=== PATIENT | female | born 1940 | race Caucasian/White ===

== ENCOUNTER → 2020-07-02 17:23 | Outpatient (CLI) | payer MEDICARE, SELFPAY | PROVIDERS: PCP Family Medicine; Referring Provider Family Medicine; Visit Provider Family Medicine | DX: J06.9 Acute upper respiratory infection, unspecified (principal) | CPT/HCPCS: 87635; C9803; U0003 ==

== ENCOUNTER 2021-03-25 08:20 | Emergency (ER) | payer MEDICARE, SELFPAY ==
[2021-03-25] VITALS (12 sets, daily range): BP systolic 59–169; BP diastolic 45–87; PULSE 55–89; RESP 18–20; TEMP 36.5–36.6; O2SAT 98–100; BMI 23.6
--- NOTE | 2021-03-25 08:22 | NURSING ---
NO OLD EKGS
--- NOTE | 2021-03-25 08:45 | EKG12_ITS ---
Test Reason : REPEAT Blood Pressure : / mmHG Vent. Rate : 072 BPM Atrial Rate : 072 BPM P-R Int : 166 ms QRS Dur : 076 ms QT Int : 382 ms P-R-T Axes : 047 031 058 degrees QTc Int : 418 ms Normal sinus rhythm Normal ECG Confirmed by KAYLIE PERRY MD ([id number]), editor at large GONZALEZ DEL CID ([id number]) on 03/26/2021 12:44:28 PM Referred By: KASSIE Confirmed By:KAYLIE PERRY MD
--- NOTE | 2021-03-25 08:46 | EDS_ITS ---
HPI History of Present Illness Chief Complaint: Chest Pain Informant: patient Onset/Context/Timing Onset: Yesterday (Before bed) Activity at onset: rest Quality: Positive for Aching Location: Left Chest (Lower chest, just to the left of midline. No radiation anywhere including back, jaw, arm, neck) Current Severity: Moderate Maximum Severity: Moderate Worsened By: Breathing (A little) Relieved By: Nothing; Not Relieved By Antacids Associated Symptoms: Negative for Nausea, Vomiting, Diaphoresis, Dyspnea, Cough, Fever, Lightheadedness and Palpitations Narrative Narrative: Patient states she has had this chest discomfort constantly overnight over 8 hours, no worse with position changes or exertion a little worse with deep breathing. She has had a lot of gas she states. She states during the day normally, she takes Tums every 2-3 hours. She did that overnight it did not help this. She has had this discomfort multiple times in the past, usually associated with reflux she thinks, she had an EGD that showed evidence of reflux and gastritis but she states she does not get the classic burning. She states this time is different because the discomfort which is in similar location and of similar sensation, is stronger in severity and has been persistent overnight which is unusual. She took Tums but it did not help this time although she hence that it did improve a little transiently with her doses. Prior Similar Symptoms: Yes PE Risk Factors: Negative for Recent Travel/Surgery, Recent Immobilization, Prior DVT or PE, Cancer and OCP + Smoking + >/=35 PFSH PFSH Medical History Adult hypothyroidism GERD (gastroesophageal reflux disease) Hypertension Home Medications levothyroxine [Synthroid] 100 mcg PO DAILY 03/25/21 [History Last Taken Unknown] lisinopril 10 mg PO DAILY 03/25/21 [History Last Taken Unknown] omeprazole 20 mg PO DAILY 03/25/21 [History Last Taken Unknown] Allergy/AdvReac Type Severity Reaction Status Date / Time nitroglycerin AdvReac Other Verified 03/25/21 09:54 Social History Smoking Status: Never smoker ROS ROS ED Constitutional Constitutional ED: Denies chills or fever(s) Eyes Eyes: Denies change in vision or diplopia ENT ENT ED: Denies rhinorrhea or sore throat Cardiovascular Cardiovascular: Reports chest pain; Denies edema or palpitations Respiratory/Chest Respiratory/Chest: Denies cough or dyspnea Gastrointestinal Gastrointestinal: Denies abdominal pain, diarrhea, nausea or vomiting Genitourinary Genitourinary ED: Denies dysuria or hematuria Musculoskeletal Musculoskeletal: Denies back pain, extremity pain or neck pain Integumentary Denies abscess or rash Neurologic Neurologic: Denies headache(s), paresthesias or weakness Psychiatric Psychiatric: Denies anxiety or suicidal thoughts EXAM Physical Exam Const Vital Signs: 03/25/21 08:21 03/25/21 08:24 03/25/21 08:25 Temperature 97.7 F L 97.7 F L Temperature Source Temporal Temporal Pulse Rate 89 89 Respiratory Rate 18 18 Respiratory Effort Normal Blood Pressure 169/87 H 169/87 H Blood Pressure Mean 114 114 Pulse Ox 100 100 Oxygen Delivery Method Room Air Room Air 03/25/21 09:19 03/25/21 09:21 03/25/21 09:37 Temperature 97.8 F Temperature Source Temporal Pulse Rate 76 76 71 Respiratory Rate 20 H 20 H Respiratory Effort Blood Pressure 143/74 H 143/74 H 126/64 H Blood Pressure Mean 97 97 Pulse Ox 98 98 Oxygen Delivery Method Room Air Room Air 03/25/21 09:40 03/25/21 09:45 03/25/21 09:46 Temperature Temperature Source Pulse Rate 76 89 55 L Respiratory Rate Respiratory Effort Blood Pressure 131/74 H 59/45 L 77/50 L Blood Pressure Mean 93 49 59 Pulse Ox Oxygen Delivery Method 03/25/21 09:52 03/25/21 09:55 03/25/21 10:30 Temperature Temperature Source Pulse Rate 70 73 66 Respiratory Rate 18 Respiratory Effort Blood Pressure 120/70 123/74 H 134/67 H Blood Pressure Mean 86 90 89 Pulse Ox 100 Oxygen Delivery Method 03/25/21 11:15 Temperature Temperature Source Pulse Rate 70 Respiratory Rate 18 Respiratory Effort Blood Pressure 130/69 H Blood Pressure Mean 89 Pulse Ox 99 Oxygen Delivery Method Positive well nourished and well developed General Appearance ED: well developed and NAD HEENT Reports moist mucous membranes normocephalic and atraumatic Eyes PERRL and EOMs intact bilaterally Neck full ROM and supple Resp normal respiratory effort and clear to auscultation bilaterally Cardio regular rate, regular rhythm and no murmurs Rate: Negative for tachycardic GI non-tender and non-distended Auscultation: normoactive bowel sounds Palpation: soft Back/Spine no CVA tenderness General Back: other FROM Extremity normal to inspection General Extremety ED: Negative for edema, pulses abnormal or tenderness General Extremity: Negative for edema or pulses abnormal Neuro oriented x3, CN's II-XII intact bilaterally and no sensory deficits noted Sensorium / Orientation: awake and alert Motor Exam: strength 5/5 throughout Skin no rashes or lesions noted and no wounds Heart Score History: Slightly/Non-Suspicious ECG: Normal Age: >/= 65 years Risk Factors: 1 or 2 Risk Factors Troponin: </= Normal Limit Score: 3 MDM MDM MDM Narrative Medical decision making narrative: Patient was given a GI cocktail that did not help significantly, she mainly wanted the discomfort to go away so we tried a nitroglycerin although her troponin returned well within normal limits and her EKG is normal, she was amenable to this. It made her nearly pass out, she was transiently hypotensive and bradycardic as a result of the vasodilatation from a single nitroglycerin, we lied her back immediately, gave her an IV fluid bolus, and her vital signs and condition recovered quickly. Shortly afterwards, while lying down she states she states that her chest pain was much worse. EKG was repeated and unremarkable, still normal. We set her up she continued to belch quite a bit at that point, and asked for something to eat a short while later, she ate, drink, and on reevaluation she states her discomfort is gone and she feels much better. I do suspect this is GI in etiology. With pain all night and a single troponin high-sensitivity reading at 5.3 I do not think she needs further measurements emergently. She states she has an appointment for a scope at the end of this month, advised to follow-up as scheduled. She is comfortable with that plan we discussed reasons to return. Lab Data Attestation: I reviewed the patient's lab results. Labs: Laboratory Results - last 24 hr 03/25/21 03/25/21 08:28 08:28 WBC 7.3 RBC 4.98 Hgb 14.9 Hct 47.2 H MCV 94.8 MCH 29.9 MCHC 31.6 L RDW Std Deviation 46.3 H RDW Coeff of Ofelia 13.2 Plt Count 197 MPV 10.7 Immature Gran % (Auto) 0.300 Neut % (Auto) 71.2 H Lymph % (Auto) 17.0 L Bureau % (Auto) 9.9 Eos % (Auto) 1.0 Baso % (Auto) 0.6 Absolute Neuts (auto) 5.2 Absolute Lymphs (auto) 1.23 Nucleated RBC % 0 Sodium 137 Potassium 3.5 Chloride 101 Carbon Dioxide 29.0 Anion Gap 7 BUN 24 H Creatinine 1.05 H Estim Creat Clear Calc 42.25 Est GFR (MDRD) Af Amer 65 Est GFR (MDRD) Non-Af 54 L BUN/Creatinine Ratio 22.9 H Glucose 172 H Calcium 9.1 Troponin I High Sens 5.3 Radiography Chest X-Ray - ED: 1 View, Read by ED Physician, Normal and No Acute Disease Diagnostic Testing: Radiology Impression Chest X-Ray 03/25/21 09:05 IMPRESSION: Normal x-ray examination of the chest. Electronically Signed: Cain Quarles MD at 9:51 EDT , Service support , EKG Initial EKG: Attestation: I personally reviewed and interpreted this EKG as follows: Interpretation: Sinus Rhythm and No Acute Injury Pattern Comments: PACs Follow-up EKG: Attestation: I personally reviewed and interpreted this EKG as follows: Interpretation: Sinus Rhythm and No Acute Injury Pattern Discharge Plan Triage Chief Complaint: Chest Pain ED Provider: Bulmaro Kraft Dx/Rx/DC Orders Clinical Impression: Chest pain, non-cardiac Instructions: ED Chest Pain, Noncardiac Prescriptions: No Action levothyroxine [Synthroid] 100 mcg tablet 100 mcg PO DAILY RF: 0 omeprazole 20 mg capsule,delayed release(DR/EC) 20 mg PO DAILY RF: 0 lisinopril 5 mg tablet 10 mg PO DAILY RF: 0 Primary Care Provider: Jose F Lara Referrals: Jose F Lara MD [Primary Care Provider] - 1 Week (And/or your clinical trial head as scheduled) Disposition Disposition: Home, Self Care
[2021-03-25] MEDS: Mag Hydrox/Al Hydrox/Simeth 30 ML UDC 15 ML PO (08:55)
--- NOTE | 2021-03-25 09:05 | RAD_ITS ---
STUDY: X-RAY CHEST REASON FOR EXAM: Female, 80 years old. Chest pain TECHNIQUE: Single AP portable view of the chest. COMPARISON: None. FINDINGS: EKG electrodes are seen. The lungs are clear and expanded. There is no demonstrated pleural abnormality. Normal size heart. Normal mediastinum and levi. Normal visualized pulmonary arteries. There is atherosclerotic tortuosity of the aortic arch and descending thoracic aorta. Normal visualized thoracic spine. Normal visualized ribs, clavicles, and shoulders. There is no demonstrated abnormality of the visualized soft tissue structures of the upper abdomen. RAD/Chest 1 View (Portable) IMPRESSION: Normal x-ray examination of the chest. Electronically Signed: Cain Quarles MD at 9:51 EDT , Service support ,
[2021-03-25 09:18] LABS: Absolute Lymphocyte Count 1.23 X10^3/uL (0.83-4.51); Absolute Neutrophil Count 5.2 X10^3/uL (2.0-7.7); Basophil# 0.04 X10^3/uL; Basophil% 0.6 % (0-1); Eosinophil# 0.07 X10^3/uL; Hematocrit 47.2 % (37-47); Hemoglobin 14.9 g/dL (12.0-15.0); Lymphocyte # 1.23 X10^3/ul (0.83-4.51); Mean Corp Hgb Conc 31.6 g/dL (32-36); Mean Corpuscular Hgb 29.9 pg (27.0-32.0); Mean Corpuscular Volume 94.8 fL (81-99); Mean Platelet Vol. 10.7 fl (6.2-12.0); Monocyte# 0.72 X10^3/uL; Monocyte% 9.9 % (0-10); NRBC Flagged by Analyzer 0 % (0-5); Neutrophil # 5.17 X10^3/uL (2.7-7.7); Neutrophil % 71.2 % (47-70); Platelet Count 197 K/mm3 (150-450); RBC Distribution Width CV 13.2 % (11.6-14.6); RBC Distribution Width SD 46.3 fl (35.1-43.9); Red Blood Count 4.98 M/mm3 (4.2-5.4); White Blood Count 7.3 K/mm3 (4.4-11.0)
[2021-03-25 09:32] LABS: Anion Gap 7 (5-15); BUN 24 mg/dL (7-18); BUN/Creat Ratio 22.9 RATIO (10-20); Calcium,Total 9.1 mg/dL (8.5-10.1); Chloride 101 mmol/L (98-107); Creatinine, Serum 1.05 mg/dL (0.55-1.02); EST Glomerular Filtration Rate 54 mL/min (>60); Est Glom Filt Rate - Afr Amer 65 mL/min (>60); Estimated Creatinine Clearance 42.25 ml/min; Glucose 172 mg/dL (74-106); Potassium 3.5 mmol/L (3.5-5.1); Sodium Level 137 mmol/L (136-145); Troponin-I HS 5.3 pg/mL (3.0-53.7)
[2021-03-25] MEDS: Nitroglycerin SL (ED/IMG/CATH) 0.4 MG TABLET SL (09:37)
--- NOTE | 2021-03-25 10:01 | EKG12_ITS ---
Test Reason : CP Blood Pressure : / mmHG Vent. Rate : 085 BPM Atrial Rate : 085 BPM P-R Int : 158 ms QRS Dur : 100 ms QT Int : 362 ms P-R-T Axes : 064 000 027 degrees QTc Int : 430 ms Sinus rhythm with Premature atrial complexes Otherwise normal ECG Confirmed by VICKY ONEILL, KAYLIE ([id number]), sound editor GONZALEZ DEL CID ([id number]) on 03/26/2021 12:44:56 PM Referred By: KASSIE Confirmed By:KAYLIE PERRY MD
--- NOTE | 2021-03-25 10:06 | ED.RN ---
5 minutes following Nitro administration pt called out, was not feeling well. Became hypotensive & bradycardic, pale & diaphoretic. Placed in trendelenburg, Dr Kraft made aware, IVF bolus initiated, 2nd line started in LT wrist.
== END 2021-03-25 12:52 | disposition home or self-care (01) ==
PROVIDERS: Emergency Provider Emergency Medicine; PCP Family Medicine
DX: R07.89 Other chest pain (principal); E03.9 Hypothyroidism, unspecified; I10 Essential (primary) hypertension; K21.9 Gastro-esophageal reflux disease without esophagitis; Z79.899 Other long term (current) drug therapy; Z87.19 Personal history of other diseases of the digestive system
CPT/HCPCS: 71045; 80048; 84484; 85025; 93005; 99284; J7030; A4216

== ENCOUNTER 2021-06-04 07:55 | Day surgery (SDC) | payer MEDICARE, SELFPAY ==
--- NOTE | 2021-06-02 13:17 | EKG12_ITS ---
Test Reason : PRE OP Blood Pressure : / mmHG Vent. Rate : 064 BPM Atrial Rate : 064 BPM P-R Int : 166 ms QRS Dur : 076 ms QT Int : 392 ms P-R-T Axes : 050 011 043 degrees QTc Int : 404 ms Normal sinus rhythm Low voltage QRS Borderline ECG Confirmed by VICKY ONEILL, KAYLIE ([id number]), editorial cartoonist GEETA BARNHART ([id number]) on 06/03/2021 1:53:44 PM Referred By: Aleks Rendon Confirmed By:KAYLIE PERRY MD
[2021-06-02 14:56] LABS: Hematocrit 44.2 % (37-47); Hemoglobin 13.9 g/dL (12.0-15.0); Mean Corp Hgb Conc 31.4 g/dL (32-36); Mean Corpuscular Volume 95.5 fL (81-99); Mean Platelet Vol. 10.9 fl (6.2-12.0); Platelet Count 231 K/mm3 (150-450); RBC Distribution Width CV 13.4 % (11.6-14.6); RBC Distribution Width SD 47.4 fl (35.1-43.9); Red Blood Count 4.63 M/mm3 (4.2-5.4)
[2021-06-02 15:23] LABS: Anion Gap 4 (5-15); BUN 27 mg/dL (7-18); BUN/Creat Ratio 29.3 RATIO (10-20); Calcium,Total 9.4 mg/dL (8.5-10.1); Chloride 105 mmol/L (98-107); Creatinine, Serum 0.92 mg/dL (0.55-1.02); EST Glomerular Filtration Rate 62 mL/min (>60); Est Glom Filt Rate - Afr Amer 75 mL/min (>60); Glucose 101 mg/dL (74-106); Potassium 4.1 mmol/L (3.5-5.1); Sodium Level 140 mmol/L (136-145)
[2021-06-02 15:31] LABS: Thyroid Stim Hormone (TSH) 1.25 uIU/mL (0.358-3.74)
[2021-06-04] VITALS (7 sets, daily range): BP systolic 120–161; BP diastolic 60–77; PULSE 45–66; RESP 16; TEMP 36.2–36.5; O2SAT 97–100; BMI 23.4
[2021-06-04] MEDS: Lactated Ringers 1,000 ML 100 ML IV ×2 (08:45→12:52)
--- NOTE | 2021-06-04 09:33 | PCM.HP.BLA ---
History and Physical Date of Admission: 06/04/21 Visit Reasons: GALLBLADDER Chief Complaint: abn hida Health Promotion Officer Required: No Is patient in pain?: No Allergies nitroglycerin Adverse Reaction (Verified 05/22/21 10:00) Other Medications levothyroxine [Synthroid] 100 mcg PO DAILY 03/25/21 [History Confirmed 05/22/21] lisinopril 10 mg PO DAILY 03/25/21 [History Confirmed 05/22/21] calcium carbonate 300 mg (750 mg) chewable tablet 600 mg PO 8XD tab 05/22/21 [History Confirmed 05/22/21] Is last menstrual period known: No Post menopausal: Yes Patient : No PFSH Medical History Adult hypothyroidism GERD (gastroesophageal reflux disease) Hypertension Surgical History (Updated 05/22/21 @ 09:59 by Joanie Wiggins) History of esophagogastroduodenoscopy (EGD) History of hysterectomy Family History (Updated 05/22/21 @ 10:00 by Joanie Wiggins) Father Heart disease Hypertension Mother Cancer bladder Social History Smoking Status: Never smoker HPI HPI HPI: KLAUDIA ARAGON, is a 80 F who presents to the office today for surgical consultation regarding abnormal gallbladder function. The patient is referred by Dr Jyoti Moctezuma and a written copy of my surgical consult and recommendations will return to him. On May 05, 2021 the patient had a hepatobiliary scan. This showed patent cystic and common bile ducts but there was a diminished ejection fraction of 20% felt to be consistent with chronic cholecystitis. By report on October 16, 2020 she had a normal right upper quadrant ultrasound. On October 07, 2020 she had a esophagogastroduodenoscopy demonstrating a normal esophagus and a small mucosal palpable of the stomach but otherwise normal stomach and normal duodenum. 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 There was some chronic antral gastritis. H. pylori was negative. Her most recent colonoscopy was categorized November 28, 2018. Among her other medications she takes simethicone and calcium carbonate and sucralfate. She states that no particular medicines make her better. In particular the sucralfate she feels offered no benefit she is not currently taking it. Some of her symptoms sound like gastritis she seems to have had one episode that sounds like retrosternal pain perhaps reflux esophagitis but she also states that she is gone through extensive testing and attempts to decipher problems and she has ongoing symptoms. She states that she previously was on ranitidine and that helped her but then that was pulled from the market. She states that some of the other medications will cause her to have diarrhea so she has to cease them. She feels that she has continued to be evaluated and now has been found to possibly have biliary dyskinesia as as a potential component to her issues. Only previous abdominal surgery was a total abdominal hysterectomy. ROS General General: No weight change, appetite, fatigue, colon cancer, breast cancer or weakness HEENT HEENT: No difficulty swallowing, eye injury, eye surgery, swollen glands or hoarseness Endo Endocrine: Yes thyroid disease; No diabetes mellitus, thyroid cancer, Hair loss, heat intolerance or cold intolerance Cardio Cardiovascular: Yes high blood pressure; No murmur, pacemaker, heart disease, atrial fibrillation, heart attack, heart stent, palpitations, shortness of breat with exertion or chest pain Psych Psychiatric: No depression, anxiety or hearing voices Resp Respiratory: No shortness of breath, No sleep apnea, No cough, No COPD, No asthma, No emphysema and No wheezing Gastro Gastrointestinal: No abdominal pain, Yes nausea or vomiting, No diarrhea, No constipation, No blood in stool, Yes acid reflux, No hemorrhoids, No ulcers, Yes gallbladder problem and No black,tarry stools Arjun Hematologic: No blood thinners, No blood disorders, No bleeding, No anemia and No blood clots Neuro Neurologic: No weakness Exam Const General: cooperative, healthy appearing, comfortable and no acute distress Nutritional Appearance: average body habitus Orientation: alert and awake [facility] Head: normal to inspection Eyes General: appearance normal, both eyes and all related structures Neck Neck: normal visual inspection Resp Effort & Inspection: normal respiratory effort Auscultation: clear to auscultation bilaterally Cardio Rate: regular rate Rhythm: regular rhythm GI Palpation: soft and no hepatosplenomegaly Auscultation: normal bowel sounds Other: Well-healed Pfannenstiel incision Musc Cervical Spine: normal cervical lordosis Skin General: no rashes or lesions noted Neuro General: patient alert, patient awake and patient oriented x3 Extrem General: no calf tenderness Psych Affect: normal affect COVID (Procedure Consent) Procedure Criteria Procedure Criteria: Yes Elective The surgeon/proceduralist and patient have discussed in detail the risk of exposure to and/or potential harm posed by the COVID-19 virus with having a surgery/procedure at this time versus the risk of delaying the surgery/procedure. It is not possible to know either the risk of delaying the surgery or procedure or chance of getting an infection with perfect accuracy, but a joint decision was made between the patient and the surgeon/proceduralist to proceed at this time with the scheduled surgery/procedure as indicated on the consent form. Assessment and Plan Assessment and Plan (1) Biliary dyskinesia: Status: Acute Plan - Dr. Aleks Rendon MD: 80-year-old female. Many of her symptoms sound like gastritis or reflux but previous testing is not been remarkable. She has had testing that suggest a degree of chronic cholecystitis/biliary dyskinesia. In great detail I discussed with her technique, benefit, risk of alternatives of laparoscopic cholecystectomy with selective cholangiography. Based upon her presentation she is aware that I cannot guarantee complete resolution of symptoms. At this point however she is desiring to proceed. She has had an opportunity to ask and have questions answered. She was accompanied to her appointment today by her who concurs. We will schedule and proceed at her discretion. I very much appreciate the kind opportunity of assisting with her surgical care. Copy:Dr Jyoti Moctezuma and Dr. Jose F Lara I have re-examined the patient. There are no clinical changes since date of exam. Aleks Rendon M.D., F.A.C.S.
--- NOTE | 2021-06-04 09:34 | EX.PCM.DISCH ---
Discharge Instructions Procedure General Surgery Diet Discharge Diet: Light diet - advance as tolerated (if you have questions about your diet instructions, please talk to you doctor.) Activity Discharge Activity: May Not Drive (for 3-5 days or while taking narcotic pain medicine.) May shower in (days): 1 Lifting Restrictions: 10 pounds Dressing / Incision Call your doctor if your incision/area has: Continuous Slow Oozing, Sudden Increased Bleeding, Increased Pain/ Swelling, Increased Redness and Foul Smelling Discharge Call your doctor if you observe: Fever of 101 or Higher Suture Line Care: Avoid Pulling/Pushing and Avoid Pinching/Bending Additional Dressing/Incision Instructions:: Change or remove dressing in 4 days. Leave steri-strips in place for 1 week. Follow Up Care Please Follow Up With: Aleks Rendon MD When: Call [phone] to make an appointment to be seen in about 10 days. Test Results: Test results from this visit will be discussed in further detail at your follow-up appointment, if applicable. Discharge Plan Admission Attending Provider: Aleks Rendon Primary Care Provider: Jose F Lara Discharge Orders/Prescriptions Prescriptions: No Action calcium carbonate [Tums] 300 mg (750 mg) tablet,chewable 600 mg PO 8XD RF: 0 levothyroxine [Synthroid] 100 mcg tablet 100 mcg PO DAILY RF: 0 lisinopril 5 mg tablet 10 mg PO DAILY RF: 0 multivitamin Capsule 1 cap PO DAILY RF: 0 calcium carbonate-vitamin D3 [Calcium 500 + D (D3)] 500 mg(1,250mg) -125 unit Tablet 1 tab PO DAILY RF: 0 melatonin 5 mg Tablet 5 mg PO QHS RF: 0
[2021-06-04] MEDS: Cefazolin 2 GM in 0.9% Normal Saline 100 ML IV (09:54)
--- NOTE | 2021-06-04 10:05 | GALL_PTH ---
PATIENT: KLAUDIA ARAGON [place] [facility] [place][id number] AGE/SX: 80/F ROOM: RE06/04/[address]: Dr. Aleks Rendon MD : [id number] BED: DIS: 06/04/2021 SPEC #: [id number] RECD: 06/04/21 13:12 STATUS: COURTNEY LIND #: [id number] ARMAAN: 06/04/21 10:[address]: Aleks Rendon DEPT: SURGICAL PATHOLOGY RECD BY: Hema Daniels ENTERED: 06/04/21 14:24 SP TYPE: RADHA XIAO DR: Dr. JoseF Lara MD Tissues: Gallbladder, NOS Procedures: Surgery Specimen Level III HEADER OPERATION: Laparoscopic cholecystectomy with IOC PRE-OP DIAGNOSIS: Biliary dyskinesia TISSUE SUBMITTED: Gallbladder MICROSCOPIC DIAGNOSIS Gallbladder, cholecystectomy: Mild chronic cholecystitis. No stones are identified in the container or in the gallbladder. SJ:karen 06/06/2021 MICROSCOPIC DESCRIPTION Slides are reviewed. GROSS DESCRIPTION Received is one container labeled with the patient's name and designated gallbladder. The specimen consists of a gallbladder measuring 8 cm in length and up to 3 cm in diameter. The external surface is pink-vincent, smooth and glistening for the most part. Focally it is granular, hemorrhagic and contains cautery artifact. The gallbladder contains green-yellow mucoid bile. No stones are identified in the container or in the gallbladder. The mucosa is bile-stained and without any mass lesions. The gallbladder wall measures up to 0.1 cm in thickness. Shearing Supervisor sections from the gallbladder and the cystic duct are submitted in one cassette. / KAIA:karen 06/05/21 TC:3 CPT: 96688
--- NOTE | 2021-06-04 10:11 | RAD_ITS ---
STUDY: INTRAOPERATIVE CHOLANGIOGRAM. REASON FOR EXAM: Female, 80 years old. PAIN FLUOROSCOPY TIME (if supplied): ( 18.7 seconds ) minutes/seconds. A cine loop of 54 images was submitted. TECHNIQUE: An intraoperative cholangiogram was performed by the surgeon. Imaging was obtained. COMPARISON: None. FINDINGS: The common bile duct is not dilated. No intraluminal filling defect is seen. There is free flow of contrast into the duodenum. RAD/Cholangiogram/ O R,Initial IMPRESSION: Unremarkable intraoperative cholangiogram. Electronically Signed: Cain Quarles MD at 15:18 EDT , Service support ,
--- NOTE | 2021-06-04 10:45 | OP.PCM_ITS ---
Problems Associated Problem List Diagnoses (1) Biliary dyskinesia: Report of Operation Date of Procedure: 06/04/21 Pre-Operative Diagnosis: Biliary dyskinesia Post-Operative Diagnosis: Same Surgery/Procedure Performed:: Laparoscopic cholecystectomy with cholangiograms Description of Surgical Findings:: Timeout and informed consent was obtained. 80-year-old female was taken to the operating place upon the table underwent general endotracheal intubation esthesia. Ancef 2 g were given intravenously. The abdomen sterilely prepped and draped. 0.5% Marcaine was used as a local anesthetic. Throughout the procedure total 30 cc was used. Skin sites were preanesthetized. A vertical infraumbilical incision was created holding sutures of 0 Vicryl placed varies needle inserted saline drop test performed the abdomen was insufflated with CO2 to a pressure of 10 mmHg pressure. 5 mm trochars were placed in the epigastric mid abdomen right upper quadrant. The gallbladder had adhesions of omentum to it. These were sharply and bluntly dissected free. The gallbladder was then placed on distraction and the infundibular area was cleanly dissected free getting the critical view with the cystic duct cystic artery identified. A Hem-o-chantel clips was placed on the cystic duct stump and incision in the cystic duct cholangiogram catheter was inserted through a 14-gauge Angiocath and fluoroscopically controlled cholangiograms were obtained demonstrating normal distal ductal anatomy. I got small amount of retrograde flow into the proper hepatic duct. I did not attempt further pressure. I did place the patient already in steep Trendelenburg position. The cholangiogram catheter was removed a Hem-o-chantel clip was placed on the cystic duct prior to transecting it 2 hemoclips were placed on the cystic artery proximally 1 distally prior to transecting it the gallbladder was dissected free from the liver bed using electrocautery complete hemostasis was intact. The right upper quadrant was irrigated and aspirated free of excess fluid. The gallbladder was placed in a retrieval bag. The abdomen was allowed to deflate of CO2 through an antiviral valve. The gallbladder was exited at the umbilicus. The fascia of the umbilicus approximated [id number] suture of 0 Vicryl. Skin edges approximated opted for Monocryl subdermal sutures. Steri- Strips Telfa OpSite dressings applied. Sponge and instrument and needle counts were reported to certainly be correct. Blood loss was minimal. Specimens gallbladder. Drains none. Blood loss minimal. The patient was taken the recovery area in satisfactory addition without apparent complication. Aleks Rendon M.D., F.A.C.S. Surgeon: Aleks Rendon Type of Anesthesia: General and Local Anesthesiologist: Shelby Norris
[2021-06-04] MEDS: Bupivacaine Mpf 0.5% 30 ML VIAL (10:46)
== END 2021-06-04 14:15 | disposition home or self-care (01) ==
LOC: SDC 07:55 → AC 07:56
PROVIDERS: Anesthesiology; PCP Family Medicine; Referring Provider Surgery; Visit Provider Surgery
PROC: (CPT 47610; principal; 2021-06-04 09:45)
DX: K82.8 Other specified diseases of gallbladder (principal); K81.1 Chronic cholecystitis; I10 Essential (primary) hypertension; E03.9 Hypothyroidism, unspecified; M19.90 Unspecified osteoarthritis, unspecified site; R23.3 Spontaneous ecchymoses; Z79.899 Other long term (current) drug therapy
CPT/HCPCS: 47563; 36415; 74300; 76000; 80048; 84443; 85027; 88304; 93005; J7120; J2405

== ENCOUNTER 2021-12-31 10:07 | Emergency (ER) | payer MEDICARE, SELFPAY ==
[2021-12-31 10:08] VITALS: TEMP 36.1; BMI 24.0
[2021-12-31 10:14] VITALS: BP 147/96; PULSE 62; RESP 16; O2SAT 98
--- NOTE | 2021-12-31 10:26 | ED.VIS.GI ---
HPI HPI - GI History of Present Illness Chief Complaint: Abd Pain Informant: patient Abdominal Pain/Flank Pain Onset: Today Context: Sudden Onset Timing: Intermittent Quality: Cramping Location: Diffuse Worsened by: Nothing Relieved by: - (Having a bowel movement) Nausea/Vomiting/Emesis GI Symptom: Positive for Nausea; Negative for Vomiting Diarrhea/Melena/Hematochezia GI Symptom: Positive for Diarrhea; Negative for Melena and Hematochezia Associated Symptoms Associated Symptoms: Negative for Dysuria, Frequency and Hematuria Narrative Narrative: Patient presents with abdominal pain that began today. Patient states it came on rather suddenly. Patient describes it as a cramping. Patient states it is diffuse across her abdomen. Patient states she was on the toilet getting ready to have a bowel movement when this came on. Patient states she felt lightheaded and laid on the floor. Patient states she had an episode of diarrhea. Patient admits to nausea but denies any vomiting. Patient denies any fevers or chills but states she broke out into a sweat when this happened. Patient denies any urinary complaints. Patient denies any chest pain or shortness of breath. Patient denies any palpitations. [facility] Medical History Adult hypothyroidism Anemia Anxiety Arthritis Bladder disease Cancer Chest pain GERD (gastroesophageal reflux disease) Heartburn History of stress test Hypertension Non-smoker Wears glasses Wears hearing aid Home Medications levothyroxine [Synthroid] 100 mcg PO SUMOWETHSA 03/25/21 [History Last Taken 06/04/21 08:00] melatonin 5 mg PO QHS 05/28/21 [History Last Taken Unknown] multivitamin 1 cap PO DAILY 05/28/21 [History Last Taken Unknown] Al hyd-Mg tr-alg ac-sod bicarb [Gaviscon] 2 tab PO Q2H 12/31/21 [History Last Taken Unknown] amlodipine 2.5 mg PO BID 12/31/21 [History Last Taken Unknown] cephalexin 500 mg PO Q6 #20 capsule 12/31/21 [Rx Last Taken Unknown] levothyroxine [Synthroid] 150 mcg PO TUFR 12/31/21 [History Last Taken Unknown] Allergy/AdvReac Type Severity Reaction Status Date / Time nitroglycerin AdvReac Other Verified 12/31/21 10:08 pseudoephedrine AdvReac FAINT Verified 12/31/21 10:08 [From [facility]] Family History (Updated 05/22/21 @ 10:00 by Joanie Wiggins) Father Heart disease Hypertension Mother Cancer bladder Surgical History History of cholecystectomy (~05/2021) History of esophagogastroduodenoscopy (EGD) History of hysterectomy Hx of colonoscopy Social History Smoking Status: Never smoker ROS ROS ED Constitutional Constitutional ED: Reports sweats; Denies chills or fever(s) Eyes Eyes: Denies blurry vision or change in vision ENT ENT ED: Denies rhinorrhea or sore throat Cardiovascular Cardiovascular: Denies chest pain or palpitations Respiratory/Chest Respiratory/Chest: Denies cough or dyspnea Gastrointestinal Gastrointestinal: Reports abdominal pain, diarrhea and nausea; Denies vomiting Genitourinary Genitourinary ED: Denies dysuria or hematuria Musculoskeletal Musculoskeletal: Denies back pain or neck pain Integumentary Denies abscess or rash Neurologic Neurologic: Denies headache(s) or weakness Allergic/Immunologic Allergic/Immunologic ED: Denies mouth swelling or urticaria EXAM Physical Exam Const Vital Signs: 12/31/21 10:08 12/31/21 10:14 12/31/21 11:20 Temperature 97 F L Temperature Source Temporal Pulse Rate 62 Pulse Rate [Lying] 61 Pulse Rate [Sitting (for 1 minute prior to obtaining)] 59 L Pulse Rate [Standing (for 1 minute prior to obtaining)] 67 Respiratory Rate 16 Blood Pressure 147/96 H Blood Pressure [Lying] 154/69 H Blood Pressure [Sitting (for 1 minute prior to obtaining)] 160/70 H Blood Pressure [Standing (for 1 minute prior to obtaining)] 159/81 H Blood Pressure Mean 113 Blood Pressure Mean [Lying] 97 Blood Pressure Mean [Sitting (for 1 minute prior to obtaining)] 100 Blood Pressure Mean [Standing (for 1 minute prior to obtaining)] 107 Pulse Ox 98 Oxygen Delivery Method Room Air Positive well nourished and well developed General Appearance ED: well developed and NAD HEENT Reports moist mucous membranes Neck supple and no JVD Resp normal respiratory effort and clear to auscultation bilaterally Cardio regular rate, regular rhythm and no murmurs GI normal to inspection, nondistended, normoactive bowel sounds and non-tender Palpation: soft Extremity normal to inspection General Extremety ED: Negative for edema or tenderness General Extremity: Negative for edema Neuro oriented x3, CN's II-XII intact bilaterally and no sensory deficits noted Sensorium / Orientation: alert Motor Exam: strength 5/5 throughout Psych mental status grossly normal Skin no rashes or lesions noted MDM MDM MDM Narrative Medical decision making narrative: Patient was given IV fluids and Zofran. EKG was obtained. On my interpretation, it showed a normal sinus rhythm with a rate of 60. WA interval, QRS interval, and QTc intervals were all normal. [place] was normal. There are no acute ST or T wave changes. CBC was within normal limits. Comprehensive metabolic profile was within normal limits. Lipase was normal. Urinalysis shows leukocyte esterases of 500 with 25-50 white blood cells and 1+ bacteria. Urine culture was ordered. Patient was given a dose of Keflex here. High-sensitivity troponin was normal at 4. COVID-19 rapid antigen was obtained and was negative. Influenza A and influenza B swabs were obtained and were negative. 2-hour repeat high-sensitivity troponin was normal at 6. Orthostatic vital signs were obtained and were negative. Patient was advised of her findings. Patient was given a prescription for Keflex. Patient was instructed to drink plenty of fluids. Patient was instructed to follow-up with her primary care physician in 5 to 7 days. Patient understood and was agreeable with the plan. All questions were answered. Lab Data Attestation: I reviewed the patient's lab results. Labs: Laboratory Results - last 24 hr 12/31/21 12/31/21 12/31/21 10:35 10:35 11:15 WBC 6.9 RBC 4.93 Hgb 14.4 Hct 44.3 MCV 89.9 MCH 29.2 MCHC 32.5 RDW Std Deviation 45.6 H RDW Coeff of [place] 13.8 Plt Count 230 MPV 10.2 Immature Gran % (Auto) 0.300 Neut % (Auto) 52.9 Lymph % (Auto) 34.0 [place] % (Auto) 9.1 Eos % (Auto) 2.5 Baso % (Auto) 1.2 H Absolute Neuts (auto) 3.7 Absolute Lymphs (auto) 2.35 Nucleated RBC % 0 Sodium 138 Potassium 3.8 Chloride 102 Carbon Dioxide 29.0 Anion Gap 7 BUN 25 H Creatinine 0.96 Estim Creat Clear Calc 45.45 Est GFR (MDRD) Af Amer 72 Est GFR (MDRD) Non-Af 60 BUN/Creatinine Ratio 26.2 H Glucose 110 H Calcium 9.0 Total Bilirubin 0.50 AST 26 ALT 42 Alkaline Phosphatase 96 Troponin I High Sens 4 Total Protein 7.1 Albumin 3.4 Globulin 3.7 Albumin/Globulin Ratio 0.9 Lipase 190 Urine Color Yellow Urine Clarity Sl. Cloudy Urine pH 8.0 Ur Specific [place] 1.010 Urine Protein 15 H Urine Glucose (UA) Normal Urine Ketones Negative Urine Occult Blood 10 H Urine Nitrite Negative Urine Bilirubin Negative Urine Urobilinogen Normal Ur Leukocyte Esterase 500 H Urine RBC 0-5 SEEN Urine WBC 25-50 SEEN Ur Squamous Epith Cells 0-5 SEEN Urine Bacteria 1+ Urine Mucus 0 SEEN 12/31/21 12:30 WBC RBC Hgb Hct MCV MCH MCHC RDW Std Deviation RDW Coeff of [place] Plt Count MPV Immature Gran % (Auto) Neut % (Auto) Lymph % (Auto) [place] % (Auto) Eos % (Auto) Baso % (Auto) Absolute Neuts (auto) Absolute Lymphs (auto) Nucleated RBC % Sodium Potassium Chloride Carbon Dioxide Anion Gap BUN Creatinine Estim Creat Clear Calc Est GFR (MDRD) Af Amer Est GFR (MDRD) Non-Af BUN/Creatinine Ratio Glucose Calcium Total Bilirubin AST ALT Alkaline Phosphatase Troponin I High Sens 6 Total Protein Albumin Globulin Albumin/Globulin Ratio Lipase Urine Color Urine Clarity Urine pH Ur Specific [place] Urine Protein Urine Glucose (UA) Urine Ketones Urine Occult Blood Urine Nitrite Urine Bilirubin Urine Urobilinogen Ur Leukocyte Esterase Urine RBC Urine WBC Ur Squamous Epith Cells Urine Bacteria Urine Mucus EKG Initial EKG: Attestation: I personally reviewed and interpreted this EKG as follows: Interpretation: Sinus Rhythm (60) and No Acute Injury Pattern Prior EKG tracings: available for review Prior: Unchanged (06/02/2021) Discharge Plan Triage Chief Complaint: Abd Pain Other Complaint: Diarrhea Syncope ED Provider: Johnathan Villalobos Dx/Rx/DC Orders Clinical Impression: Urinary tract infection, Near syncope Instructions: ED Near-Fainting, Uncertain Cause, ED CYSTITIS Female Adult Prescriptions: New cephalexin [cephalexin] 500 MG capsule 500 mg PO Q6 Qty: 20 RF: 0 No Action levothyroxine [Synthroid] 100 mcg tablet 100 mcg PO SUMOWETHSA RF: 0 multivitamin Capsule 1 cap PO DAILY RF: 0 melatonin 5 mg Tablet 5 mg PO QHS RF: 0 levothyroxine [Synthroid] 150 mcg Tablet 150 mcg PO TUFR RF: 0 Gaviscon 80-14.2 mg Tablet,Chewable 2 tab PO Q2H RF: 0 amlodipine 2.5 mg Tablet 2.5 mg PO BID RF: 0 Primary Care Provider: Jose F Lara Referrals: Jose F Lara MD [Primary Care Provider] - 5-7 Days Disposition Disposition: Home, Self Care
--- NOTE | 2021-12-31 10:29 | EKG12_ITS ---
Test Reason : ABD PAIN Blood Pressure : / mmHG Vent. Rate : 060 BPM Atrial Rate : 060 BPM P-R Int : 172 ms QRS Dur : 078 ms QT Int : 420 ms P-R-T Axes : 056 017 048 degrees QTc Int : 420 ms Normal sinus rhythm Normal ECG Confirmed by SOLANGE ONEILL, JAH ([id number]), photography editor GONZALEZ DEL CID ([id number]) on 01/01/2022 12:48:07 P M Referred By: CHICHI Confirmed By:JANA NARVAEZ MD
[2021-12-31] MEDS: Ondansetron 4 MG/2 ML Vial IV (10:37)
[2021-12-31] MEDS: 0.9% Normal Saline 1,000 ML 1000 ML IV (10:37)
[2021-12-31 10:41] LABS: Absolute Lymphocyte Count 2.35 X10^3/uL (0.83-4.51); Absolute Neutrophil Count 3.7 X10^3/uL (2.0-7.7); Basophil# 0.08 X10^3/uL; Basophil% 1.2 % (0-1); Eosinophil# 0.17 X10^3/uL; Eosinophils% 2.5 % (0-5); Hematocrit 44.3 % (37-47); Hemoglobin 14.4 g/dL (12.0-15.0); Lymphocyte # 2.35 X10^3/ul (0.83-4.51); Mean Corp Hgb Conc 32.5 g/dL (32-36); Mean Corpuscular Hgb 29.2 pg (27.0-32.0); Mean Corpuscular Volume 89.9 fL (81-99); Mean Platelet Vol. 10.2 fl (6.2-12.0); Monocyte# 0.63 X10^3/uL; Monocyte% 9.1 % (0-10); NRBC Flagged by Analyzer 0 % (0-5); Neutrophil # 3.67 X10^3/uL (2.7-7.7); Neutrophil % 52.9 % (47-70); Platelet Count 230 K/mm3 (150-450); RBC Distribution Width CV 13.8 % (11.6-14.6); RBC Distribution Width SD 45.6 fl (35.1-43.9); Red Blood Count 4.93 M/mm3 (4.2-5.4); White Blood Count 6.9 K/mm3 (4.4-11.0)
[2021-12-31 10:58] LABS: ALB/GLOB Ratio 0.9 RATIO (0.9-2.4); AST(SGOT) 26 U/L (15-37); Alanine Aminotransfer ALT/SGPT 42 U/L (13-56); Albumin, Serum 3.4 g/dL (3.2-5.0); Alkaline Phosphatase 96 U/L (45-117); Anion Gap 7 (5-15); BUN 25 mg/dL (7-18); BUN/Creat Ratio 26.2 RATIO (10-20); Chloride 102 mmol/L (98-107); Creatinine, Serum 0.96 mg/dL (0.55-1.02); EST Glomerular Filtration Rate 60 mL/min (>60); Est Glom Filt Rate - Afr Amer 72 mL/min (>60); Estimated Creatinine Clearance 45.45 ml/min; Globulin 3.7 g/dL (2.2-4.2); Glucose 110 mg/dL (74-106); Lipase 190 U/L (73-393); Potassium 3.8 mmol/L (3.5-5.1); Protein, Total 7.1 g/dL (6.4-8.2); Sodium Level 138 mmol/L (136-145); Troponin-I HS 4 pg/mL (3.0-54.0)
[2021-12-31 11:20] VITALS: BP 154/69; BP 159/81; BP 160/70; PULSE 59; PULSE 61; PULSE 67
[2021-12-31 11:20] LABS: Mucous, Urine 0 SEEN /hpf (<or=2+)
[2021-12-31 11:23] LABS: Color, Urine Yellow (Yellow); Glucose, Dipstick Normal (Normal); Ketone-Dipstick Negative (Negative); Leukocyte Esterase-Dipstick 500 /ul (Negative); Nitrite-Dipstick Negative (Negative); Occult Blood-Urine 10 /ul (Negative); Protein-Dipstick 15 mg/dl (Negative); Urine Bilirubin Dipstick Negative (Negative); Urine Clarity Sl. Cloudy (Clear); Urine Urobilinogen Normal (Normal)
[2021-12-31 11:30] LABS: Bacteria 1+ /hpf (None Seen); Red Blood Cells-Urine 0-5 SEEN /hpf (0-5); Squamous Epithelial Cells - UA 0-5 SEEN /hpf (5-10); White Blood Cells 25-50 SEEN /hpf (0-5)
[2021-12-31] MEDS: Cephalexin 500 MG Capsule PO (12:02)
[2021-12-31 12:52] LABS: Troponin-I HS 6 pg/mL (3.0-54.0)
[2021-12-31 13:08] VITALS: BP 135/70; PULSE 62; RESP 16; O2SAT 98
== END 2021-12-31 13:17 | disposition home or self-care (01) ==
PROVIDERS: Emergency Provider Emergency Medicine; PCP Family Medicine; Visit Provider Emergency Medicine
DX: N39.0 Urinary tract infection, site not specified (principal); R55 Syncope and collapse; E03.9 Hypothyroidism, unspecified; F41.9 Anxiety disorder, unspecified; M19.90 Unspecified osteoarthritis, unspecified site; K21.9 Gastro-esophageal reflux disease without esophagitis; I10 Essential (primary) hypertension; Z79.899 Other long term (current) drug therapy
CPT/HCPCS: 80053; 81001; 83690; 84484; 85025; 87086; 87088; 87428; 93005; 96361; 96374; 99285; J2405

== ENCOUNTER 2025-01-01 01:33 | Emergency (ER) | payer MEDICARE, SELFPAY ==
[2025-01-01 01:34] VITALS: BP 179/85; PULSE 91; RESP 18; TEMP 36.3; O2SAT 100; BMI 25.6
[2025-01-01 01:54] VITALS: BP 153/74; PULSE 62; RESP 18; O2SAT 100
--- NOTE | 2025-01-01 02:04 | EX.ED.DYSGE1 ---
HPI History of Present Illness Chief Complaint: Hypertension Informant: patient and spouse/S.O. Narrative Narrative: 84-year-old female for years she has been having dizziness in the mornings, not every morning but frequently, she attributes it to when she started taking amlodipine which is low-dose twice daily. She saw her doctor this past week, about 3 to 4 days ago, and decreased her amlodipine dose. This past day she checked her blood pressure and it was in the 150s and so she took an extra amlodipine tonight before she went to bed. She woke up to go to the bathroom in the middle of the night, she states she felt funny, cannot tell me specifically any symptoms that she had, but states that is how I feel whenever my blood pressure goes up which made her check her blood pressure and it was in the 170/100 with a pulse of 88, which is why she presents to the ER just before 2 AM. She states she feels fine now. She had no dizziness when she woke up. She denies any chest pain, shortness of breath, focal neurologic symptoms, headache. [facility] Medical History Contact with and (suspected) exposure to other viral communicable diseases Incontinence Fatigue Kidney disease Wears hearing aid Wears glasses Cancer Anxiety Arthritis Bladder disease Anemia Heartburn Non-smoker History of stress test Chest pain GERD (gastroesophageal reflux disease) Adult hypothyroidism Hypertension Home Medications ?Medication ?Instructions ?Recorded ?Last Taken ?Type multivitamin 1 cap PO DAILY 05/28/21 Unknown History Al hyd-Mg tr-alg ac-sod bicarb 80 2 tab PO Q2H 12/31/21 Unknown History mg-14.2 mg chewable tablet (Gaviscon) amlodipine 2.5 mg tablet 2.5 mg PO BID 12/31/21 Unknown History lisinopril 5 mg tablet 5 mg PO 02/05/22 Unknown History calcium carb-ergocalciferol (vit tab PO 01/01/25 Unknown History D2) 600 mg calcium-200 unit tablet levothyroxine 100 mcg tablet 100 mcg PO 01/01/25 Unknown History (Synthroid) melatonin 5 mg capsule mg 01/01/25 Unknown History Allergy/AdvReac Type Severity Reaction Status Date / Time nitroglycerin AdvReac Other Verified 02/05/22 15:52 pseudoephedrine (From AdvReac FAINT Verified 02/05/22 15:52 Sudafed) Family History Father Heart disease Hypertension Mother Cancer bladder Surgical History History of cholecystectomy (~05/2021) Hx of colonoscopy History of hysterectomy History of esophagogastroduodenoscopy (EGD) Social History Smoking Status: Never smoker ROS ROS ED Constitutional Constitutional ED: Denies chills or fever(s) Eyes Eyes: Denies change in vision or diplopia ENT ENT ED: Denies rhinorrhea or sore throat Cardiovascular Cardiovascular: Denies chest pain or palpitations Respiratory/Chest Respiratory/Chest: Denies cough or dyspnea Gastrointestinal Gastrointestinal: Denies abdominal pain, diarrhea, nausea or vomiting Genitourinary Genitourinary ED: Denies dysuria or hematuria Musculoskeletal Musculoskeletal: Denies back pain or neck pain Integumentary Denies abscess or rash Neurologic Neurologic: Denies headache(s), paresthesias or weakness Psychiatric Psychiatric: Denies anxiety or suicidal thoughts EXAM Physical Exam Const Vital Signs: 01/01/25 01:34 01/01/25 01:38 01/01/25 01:54 Temperature 97.4 F L Temperature Source Oral Pulse Rate 91 62 Respiratory Rate 18 18 Respiratory Effort Normal Non-Labored Respiratory Pattern Normal Blood Pressure 179/85 H 153/74 H Blood Pressure Mean 116 100 Pulse Ox 100 100 Oxygen Delivery Method Room Air Room Air Positive well nourished and well developed General Appearance ED: well developed and NAD HEENT Reports moist mucous membranes normocephalic and atraumatic Eyes PERRL and EOMs intact bilaterally Neck full ROM and supple Resp normal respiratory effort and clear to auscultation bilaterally Cardio regular rate, regular rhythm and no murmurs GI non-tender and non-distended Auscultation: normoactive bowel sounds Palpation: soft Back/Spine no CVA tenderness General Back: other FROM Extremity normal to inspection General Extremety ED: Negative for edema, pulses abnormal or tenderness General Extremity: Negative for edema or pulses abnormal Neuro oriented x3, CN's II-XII intact bilaterally, no sensory deficits noted and gait normal Neuro Narrative: No dysmetria normal [id number] bilaterally. No pathologic nystagmus. Sensorium / Orientation: awake and alert Motor Exam: strength 5/5 throughout Psych Mood & Affect: anxious Skin no rashes or lesions noted and no wounds MDM MDM MDM Narrative Medical decision making narrative: When the patient first arrived to triage her blood pressure was 179/85. She told me she was more concerned but the diastolic pressure at home of the 100. She was observed for short time in the emergency department, she had several sequential blood pressures in the 150s/70 range. She is asymptomatic since she has been here. Based on all of this I reassured her, I do not think she needs any emergent testing in the ED, she is having some asymptomatic ectopy on the monitor, and she is wondering if she should go back up on her amlodipine. I advised her to do what ever her doctor recommended, and if she is backing off on her amlodipine dose which she was not very high to begin with, I would have her continue to do that and monitor her blood pressures from time to time, and make a log so that when she follows up with her doctor they can make an educated decision about what to do about her medication from there. They are comfortable with that plan we discussed reasons to return. Rhythm Strip Rhythm Strip: Sinus Rhythm Rate: 65 Ectopy: PVC(s) and PAC(s) Discharge Plan Triage Chief Complaint: Hypertension ED Provider: Bulmaro Kraft Dx/Rx/DC Orders Clinical Impression: Accelerated hypertension Instructions: Hypertension Dc Prescriptions: No Action lisinopril 5 mg tablet 5 mg PO multivitamin Capsule 1 cap PO DAILY Gaviscon 80-14.2 mg Tablet,Chewable 2 tab PO Q2H amlodipine 2.5 mg Tablet 2.5 mg PO BID levothyroxine [Synthroid] 100 mcg tablet 100 mcg PO calcium carbonate-vitamin D2 600 mg calcium- 200 unit tablet PO melatonin 5 mg capsule Primary Care Provider: Jose F Lara Referrals: Jose F Lara MD [Primary Care Provider] - 3-5 Days if not improving Print Language: Bulgarian Disposition Disposition: Home, Self Care
[2025-01-01 02:09] VITALS: BP 153/75; PULSE 56; RESP 18; TEMP 36.4; O2SAT 100
== END 2025-01-01 02:21 | disposition home or self-care (01) ==
PROVIDERS: Emergency Provider Emergency Medicine; PCP Family Medicine; Visit Provider Emergency Medicine
DX: I10 Essential (primary) hypertension (principal); Z90.710 Acquired absence of both cervix and uterus; Z79.899 Other long term (current) drug therapy; E03.9 Hypothyroidism, unspecified; Z79.890 Hormone replacement therapy; Z90.49 Acquired absence of other specified parts of digestive tract
CPT/HCPCS: 99282

== ENCOUNTER 2025-06-11 09:19 | Emergency (ER) | payer MEDICARE, SELFPAY ==
--- OUTSIDE RECORDS SUMMARY | 2025-06-11 09:08 | XMS RPT_ITS ---
Author Name Auto Generated Organization OHIP Care Team Providers Care Medicaid Analyst Name Role Phone AKOSUA LE Primary Care Unavailable RICARDO BRONSON Attending Unavailable ELDERNOE, AKOSUA Saha Primary Care Unavailable RICARDO BRONSON Referring Unavailable ELDERAKOSUA LIU Primary Care Unavailable PERCY NAVARRO Attending Unavailable ELDERSARYCK, AKOSUA Saha Primary Care Unavailable JOSE MIGUEL BECERRA Attending Unavailable ELDERBROCK, AKOSUA Saha Primary Care Unavailable CLAY PRUITT Referring Unavailable ELDERBROCK, AKOSUA Saha Primary Care Unavailable NATALY PEREZ Referring Unavailabl e ELDERNOE, AKOSUA Saha Primary Care Unavailable RICARDO BRONSON Attending Unavailable ELDERBROCK, AKOSUA Saha Primary Care Unavailable ELDERBROCK, AKOSUA Saha Attending Unavailable ELDERBROCK, AKOSUA Yifan Primary Care Unavailable ELDERSARYCK, AKOSUA Saha Primary Care Unavailable NAYELI OLIVIER Referring Unavailable NAYELI OLIVIER Attending Unavailable ELDERBROCK, AKOSUA Saha Primary Care Unavailable ELDERBROCK, AKOSUA Saha Primary Care Unavailable KIRBY MARCELINO Attending Unavailable ELDERSARYCK, AKOSUA Saha Referring Unavailable ELDERBROCK, AKOSUA Saha Primary Care Unavailable NATALY PEREZ Attending Unavailabl e ELDERNOE, AKOSUA Saha Primary Care Unavailable ELDERSARYCK, AKOSUA Yifan Primary Care Unavailable PROBLEMS DATE TYPE CONDITION / CODE ATTENDING STATUS [facility] 06/05/2025 Active Pessary maintena nce / Z46.89(ICD-10) NAYELI OLIVIER Active [facility] [place] 06/05/2025 Active Vaginal prolapse / N81.10(ICD-10) NAYELI OLIVIER Active [facility] [place] 06/05/2025 Active Vaginal erosion secondary to pessary use, subsequent encounter / T83.89XD(ICD-10) NAYELI OLIVIER Active [facility] [place] 06/05/2025 Active Vaginal erosion secondary to pessary use, subsequent encounter / N89.8(ICD-10) NAYELI OLIVIER Active [facility] [place] 06/05/2025 Active Vulvar itching / L29.2(ICD-10) NAYELI OLIVIER Active [facility] [place] 06/05/2025 Active Encounter for sc reening mammogram for breast cancer / Z12.31(ICD-10) NAYELI OLIVIER Active [facility] [place] 06/05/2025 Active Encounter for sc reening mammogram for malignant neoplasm of breast / Z12.31(ICD-10) NA Active [facility] [place] 01/16/2025 Active Dizziness / R42(ICD-10) JEAN CARLOS LE Active [facility] [place] 01/16/2025 Active 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 / K21.9(ICD-10) AKOSUA LE Active [facility] [place] 06/26/2013 Active Hypertension, unspecified type / I10(ICD-10) PERCY NAVARRO Active [facility] [place] 11/04/2015 Active Hypothyroidism, unspecified type / E03.9(ICD-10) RICARDO BRONSON Active [facility] [place] 12/19/2024 Active 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) IRCARDO BRONSON Active [facility] [place] 06/25/2010 Active Hyperlipidemia, unspecified hyperlipidemia type / E78.5(ICD-10) NA Active [facility] [place] 11/15/2024 Active Microscopic maris turia / R31.29(ICD-10) JOSE MIGUEL BECERRA Active [facility] [place] 11/14/2024 Active Night sweats / R61(ICD-10) RICARDO BRONSON Active [facility] [place] 08/19/2024 Active Left wrist pain / M25.532(ICD-10) NA Active [facility] [place] 06/22/2024 Active Encounter for immunization / Z23(ICD-10) NATALY PEREZ Active [facility] [place] PROCEDURES No Procedure Records Found RESULTS PROGRESS Observed: 06/11/2025 9:15 AM Status: COMPLETED Source: [facility] HNO ID: [id number] Author: KIRBY MARCELINO MD Service: ? Author Type: Physician Type: Progress Notes Filed: 06/11/2025 09:18 Note Text: Urgent Care Triage Note: Patient presents to the urgent care with complaint of dizziness this morning. She is feeling light-headed, tired and feeling the need to lie down, and her heart is beating differently. She has had dizziness issues off and on but this feels different and is not going away. She appears anxious, ambulates without assistance. Her will take her to the [facility] ER for further evaluation. CNOV Observed: 06/11/2025 9:15 AM Status: COMPLETED Source: [facility] Office Visit (WODEMAR) KLAUDIA BLACKBURN ([id number]) 1940 F Date Time Provider Department 06/11/25 9:15 AM KIRBY MARCELINO During your visit today, we recorded the following information about you: Kirby Marcelino MD 06/11/2025 9:18 AM Signed Urgent Care Triage Note: Patient presents to the urgent care with complaint of dizziness this morning. She is feeling light-headed, tired and feeling the need to lie down, and her heart is beating differently. She has had dizziness issues off and on but this feels different and is not going away. She appears anxious, ambulates without assistance. Her will take her to the [facility] ER for further evaluation. Allergies As of Date: 06/11/2025 Noted Allergy Reaction PREVACID (LANSOPRAZOLE) 03/12/2021 8 - GI Upset Comments: Diarrhea NITROGLYCERIN 03/25/2021 14 - Other: See Comments Comments: Decrease blood pressure PSEUDOEPHEDRINE 06/04/2021 14 - Other: See Comments Date Reviewed: 06/05/2025 Reviewed by: Nayeli Olivier APRN.TELECOMMUNICATIONS LINE MECHANIC - Fully Assessed Primary Visit Diagnosis:Dizziness [R42] Prescriptions as of 06/11/2025 - clotrimazole-betamethasone (LOTRISONE) cream Apply 1 application to affected area two times a day. - estradiol (ESTRACE) 0.01 % (0.1 mg/gram) vaginal cream Apply 0.5 g intravaginally twice weekly. - Oxyquinoline-Na Lauryl Sulfate (TRIMO-GODINEZ JELLY) 0.025-0.01 % gel Use 1 inch vaginally as directed. For pessary cleaning and re-insertion - amLODIPine (NORVASC) 2.5 mg tablet Take 1 tablet by mouth two times a day. - levothyroxine (SYNTHROID) 100 mcg tablet Take 1.5 tablets on Mon,Wed, Fri and 1 tablet all other days. - ALIGN PROBIOTIC RESISTANCE CAPSULE Take 1 capsule by mouth once daily. - aluminum hydrox-magnesium carb (GAVISCON EXTRA STRENGTH) 160-105 mg chew Take 2 tablets by mouth four times daily. - simethicone (GAS-X ORAL) Take by mouth once daily as needed. - MELATONIN ORAL Take 5 mg by mouth daily at bedtime. - calcium carbonate/vitamin d3(CALCIUM 600 WITH VITAMIN D3 600 MG (1,500)-200 UNIT TAB) Take one(1) tablet daily. - THERAPEUTIC MULTIVITAMIN TAB Take one(1) tablet daily. 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] 03/28/2007 06/05/2009 Sebaceous Cyst [L72.3] 03/27/2009 06/05/2009 Routine gynecological examination [Z01.419] 06/05/2009 Class: Chronic Hyperlipidemia [E78.5] 06/05/2009 Osteopenia [M85.80] 06/05/2009 Back pain [M54.9] 04/23/2011 Neck pain, musculoskeletal [M54.2] 04/23/2011 Arthritis [M19.90] 09/30/2012 Hypertension [I10] 09/13/2012 CKD (chronic kidney disease) stage 3, GFR 30-59*04/05/2018 01/16/2025 Microscopic hematuria [R31.29] 11/15/2024 Encounter Status:Closed by KIRBY MARCELINO on 06/11/25 ELEANOR Observed: 06/05/2025 2:30 PM Status: COMPLETED Source: [facility] Office Visit (OBGYWM) ALEXEYKLAUDIA ([id number]) 1940 F Date Time Provider Department 06/05/25 2:30 PM NAYELI OLIVIER During your visit today, we recorded the following information about you: Blood pressure Weight Last Period 132/78 75.3 kg 06/13/1987 Nayeli Olviier APRN.TELECOMMUNICATIONS LINE MECHANIC 06/05/2025 5:08 PM Signed Tour Counselor offered: Patient declines. Klaudia J Alexey is a 84 year old who presents today for pessary insertion/cleaning. She wears a size 3 ring with support pessary. She returns today with complaints of feeling that her pessary sometimes feels like it needs to be pushed back up after a bowel movement, describing a sensation of another bump line underneath it. She has had problems with the pessary - bump or bulge when after having BM. She has not had vaginal discharge. She has not had vaginal bleeding. - Vaginal estrogen cream twice a week - Trimo-Godinez twice a week - Uses Aquaphor to manage itching around the hair area, occasionally applying Lotrisone cream as needed. - Removes pessary every 2 to 3 weeks, cleans and reinsert it in the morning using Trimo-Godinez or Estrace EXAM: pleasant, well developed, well nourished, in no apparent distress Pelvic: Bartholin's, urethra and [place]'s glands were normal. The ring with support pessary was removed. Vaginal exam indicated no erythema, no ulcerations, no vaginal discharge, and one area of erosion.. The pessary was cleaned and a new size 3 ring with support was inserted without difficulty 1. Pessary maintenance (Z46.89) 2. Vaginal prolapse (N81.10) 3. Vaginal erosion secondary to pessary use, subsequent encounter (T83.89XD) - Vaginal wall prolapse with rectocele; current pessary noted to be flimsy and providing insufficient support. - Area of erosion noted on exam, consistent with prior findings; no ulcerations, significant erythema, or abnormal discharge. - Replaced pessary with a new, sturdier device to improve support and reduce friction. - Continue vaginal estrogen cream (Estrace) intravaginally twice weekly and Trimo-godinez twice weekly to maintain vaginal tissue health. - Educated on the importance of ongoing estrogen therapy to prevent tissue atrophy and maintain vaginal health. - Advised to continue removing pessary every 2-3 weeks for cleaning and to leave it out overnight. - Follow-up in 3-4 months for reassessment. 4. Vulvar itching (L29.2) - Refill Lotrisone cream for vulvar itching. 5. Encounter for screening mammogram for breast cancer (Z12.31) - Ordered screening mammogram for next year. Nayeli Olivier APRN.CNP Medical Decision Making: Problems: Moderate: 1+ chronic illnesses with change Risk: Moderate: Drug management and Moderate risk from testing/treatment Medical Decision Making Level: 4 - Moderate Nayeli Olivier APRN.CNP 06/05/2025 3:04 PM Signed Vaginal estrogen cream twice a week Trimo-Godinez twice a week Allergies As of Date: 06/05/2025 Noted Allergy Reaction PREVACID (LANSOPRAZOLE) 03/12/2021 8 - GI Upset Comments: Diarrhea NITROGLYCERIN 03/25/2021 14 - Other: See Comments Comments: Decrease blood pressure PSEUDOEPHEDRINE 06/04/2021 14 - Other: See Comments Date Reviewed: 06/05/2025 Reviewed by: Nayeli Olivier APRN.TELECOMMUNICATIONS LINE MECHANIC - Fully Assessed Reason for Visit: Pessary [[id number]] Primary Visit Diagnosis:Pessary maintenance [Z46.89] Other Visit Diagnoses:Vaginal prolapse [N81.10] Vaginal erosion secondary to pessary use, subsequent encounter [T83.89XD, N89.8] Vulvar itching [L29.2] Encounter for screening mammogram for breast cancer [Z12.31] Order(s):[facility] SCREENING W SIGIFREDO [[id number]] Order #: [id number] FUTURE clotrimazole-betamethasone (LOTRISONE) creamApply 1 application to affected area two times a day.Disp: 15 gRfl: 2 estradiol (ESTRACE) 0.01 % (0.1 mg/gram) vaginal creamApply 0.5 g intravaginally twice weekly.Disp: 42.5 gRfl: 2 Oxyquinoline-Na Lauryl Sulfate (TRIMO-GODINEZ JELLY) 0.025-0.01 % gelUse 1 inch vaginally as directed. For pessary cleaning and re-insertionDisp: 113.4 gRfl: 2 Prescriptions as of 06/05/2025 - clotrimazole-betamethasone (LOTRISONE) cream Apply 1 application to affected area two times a day. - estradiol (ESTRACE) 0.01 % (0.1 mg/gram) vaginal cream Apply 0.5 g intravaginally twice weekly. - Oxyquinoline-Na Lauryl Sulfate (TRIMO-GODINEZ JELLY) 0.025-0.01 % gel Use 1 inch vaginally as directed. For pessary cleaning and re-insertion - amLODIPine (NORVASC) 2.5 mg tablet Take 1 tablet by mouth two times a day. - levothyroxine (SYNTHROID) 100 mcg tablet Take 1.5 tablets on Mon,Wed, Fri and 1 tablet all other days. - ALIGN PROBIOTIC RESISTANCE CAPSULE Take 1 capsule by mouth once daily. - aluminum hydrox-magnesium carb (GAVISCON EXTRA STRENGTH) 160-105 mg chew Take 2 tablets by mouth four times daily. - simethicone (GAS-X ORAL) Take by mouth once daily as needed. - MELATONIN ORAL Take 5 mg by mouth daily at bedtime. - calcium carbonate/vitamin d3(CALCIUM 600 WITH VITAMIN D3 600 MG (1,500)-200 UNIT TAB) Take one(1) tablet daily. - THERAPEUTIC MULTIVITAMIN TAB Take one(1) tablet daily. 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] 03/28/2007 06/05/2009 Sebaceous Cyst [L72.3] 03/27/2009 06/05/2009 Routine gynecological examination [Z01.419] 06/05/2009 Class: Chronic Hyperlipidemia [E78.5] 06/05/2009 Osteopenia [M85.80] 06/05/2009 Back pain [M54.9] 04/23/2011 Neck pain, musculoskeletal [M54.2] 04/23/2011 Arthritis [M19.90] 09/30/2012 Hypertension [I10] 09/13/2012 CKD (chronic kidney disease) stage 3, GFR 30-59*04/05/2018 01/16/2025 Microscopic hematuria [R31.29] 11/15/2024 Other instructions from your clinician: Vaginal estrogen cream twice a week Trimo-Godinez twice a week Prescriptions ordered this encounter Disp Refills Start End CLOTRIMAZOLE-BETAMETHASONE 1 %-0.05 * 15 g 2 06/05/2025 Route: TOP Sig: Apply 1 application to affected area two times a day. ESTRADIOL 0.01% (0.1 MG/GRAM) VAGINA* 42.5* 2 06/05/2025 Sig: Apply 0.5 g intravaginally twice weekly. TRIMO-GODINEZ JELLY 0.025 %-0.01 % VAGIN* 113.* 2 06/05/2025 Route: VAGINAL Sig: Use 1 inch vaginally as directed. For pessary cleaning and re-insertion Medications Discontinued During This Encounter Prescriptions - clotrimazole-betamethasone (LOTRISONE) cream (Discontinued) Apply 1 application to affected area twice daily. - Oxyquinoline-Na Lauryl Sulfate (TRIMO-GODINEZ JELLY) 0.025-0.01 % gel (Discontinued) Use 1 Inch vaginally as directed. For pessary cleaning and re-insertion - estradiol (ESTRACE) 0.01 % (0.1 mg/gram) vaginal cream (Discontinued) Apply 0.5 g intravaginally twice weekly. Disposition: Return in 3 months (on 09/04/2025) for pessary check - erosion. Follow-up and Disposition History for Encounter Date Provider Department Center 06/05/2025 [id number]-VJEMBVHNAYELI OLIVIER Encounter Status:Closed by NAYELI OLIVIER on 06/05/25 PROGRESS Observed: 06/05/2025 2:20 PM Status: COMPLETED Source: [facility] HNO ID: [id number] Author: NAYELI OLIVIER APRN.TELECOMMUNICATIONS LINE MECHANIC Service: ? Author Type: Nurse Practitioner Type: Progress Notes Filed: 06/05/2025 17:08 Note Text: Tour Counselor offered: Patient declines. Klaudia Blackburn is a 84 year old who presents today for pessary insertion/cleaning. She wears a size 3 ring with support pessary. She returns today with complaints of feeling that her pessary sometimes feels like it needs to be pushed back up after a bowel movement, describing a sensation of another bump line underneath it. She has had problems with the pessary - bump or bulge when after having BM. She has not had vaginal discharge. She has not had vaginal bleeding. - Vaginal estrogen cream twice a week - Trimo-Godinez twice a week - Uses Aquaphor to manage itching around the hair area, occasionally applying Lotrisone cream as needed. - Removes pessary every 2 to 3 weeks, cleans and reinsert it in the morning using Trimo-Godinez or Estrace EXAM: pleasant, well developed, well nourished, in no apparent distress Pelvic: Bartholin's, urethra and [place]'s glands were normal. The ring with support pessary was removed. Vaginal exam indicated no erythema, no ulcerations, no vaginal discharge, and one area of erosion.. The pessary was cleaned and a new size 3 ring with support was inserted without difficulty 1. Pessary maintenance (Z46.89) 2. Vaginal prolapse (N81.10) 3. Vaginal erosion secondary to pessary use, subsequent encounter (T83.89XD) - Vaginal wall prolapse with rectocele; current pessary noted to be flimsy and providing insufficient support. - Area of erosion noted on exam, consistent with prior findings; no ulcerations, significant erythema, or abnormal discharge. - Replaced pessary with a new, sturdier device to improve support and reduce friction. - Continue vaginal estrogen cream (Estrace) intravaginally twice weekly and Trimo-godinez twice weekly to maintain vaginal tissue health. - Educated on the importance of ongoing estrogen therapy to prevent tissue atrophy and maintain vaginal health. - Advised to continue removing pessary every 2-3 weeks for cleaning and to leave it out overnight. - Follow-up in 3-4 months for reassessment. 4. Vulvar itching (L29.2) - Refill Lotrisone cream for vulvar itching. 5. Encounter for screening mammogram for breast cancer (Z12.31) - Ordered screening mammogram for next year. Nayeli Olivier APRN.ZHEN Medical Decision Making: Problems: Moderate: 1+ chronic illnesses with change Risk: Moderate: Drug management and Moderate risk from testing/treatment Medical Decision Making Level: 4 - Moderate LAW SCREENING W SIGIFREDO Observed: 2:10 PM Status: F Source: [facility] * * *Final Report* * * DATE OF EXAM: Jun 05 2025 2:10PM [id number] - LAW SCREENING W SIGIFREDO / PROCEDURE REASON: Encounter for screening mammogram for malignant neoplasm of breast * * * * Physician Interpretation * * * * RESULT: [place] [address] #[id number] - LAW SCREENING W SIGIFREDO HISTORY: 84 year-old patient presents for screening. Patient is asymptomatic in both breasts. Patient states no personal history of breast cancer. The patient has a family history of breast cancer. COMPARISON STUDIES: The present examination has been compared to prior imaging studies dated 02/19/2020 (mammogram), 04/07/2021 (mammogram), 04/13/2022 (mammogram), 04/30/2023 (mammogram) and 05/31/2024 (mammogram). MAMMOGRAM TECHNIQUE: The study was acquired using full field digital technology and interpreted from soft copy. Digital Breast Tomosynthesis (DBT) images were obtained and used to assist in the interpretation of this examination. MAMMOGRAM FINDINGS: There are scattered areas of fibroglandular density. No suspicious masses, calcifications or other abnormalities are seen in either breast. There are no significant interval changes. IMPRESSION: There is no mammographic evidence of malignancy in either breast. Routine screening mammogram is recommended. Annual mammogram will be due in 1 year. BI-RADS Category 1: Negative RISK: Based on the Tyrer-Cuzick (TC) risk assessment model, this patient has a 1.1% lifetime risk of developing breast cancer, meaning they are at average risk for developing breast cancer. However, this is only an estimate based on available history provided on the patient's questionnaire. We encourage all patients to talk with their providers about these results, further recommendations for managing breast health, and appropriate supplemental screening options if the patient has dense breast tissue. Interpreting Radiologist: Farhana Brooks M.D. Electronically signed on: 06/08/2025 Language Specialist: COCO Transcribe Date/Time: Jun 05 2025 1:29P Dictated by: FARHANA BROOKS MD This examination was interpreted and the report reviewed and electronically signed by: FARHANA BROOKS MD on Jun 08 2025 12:45PM EST [id number] PROGRESS Observed: 06/05/2025 1:50 PM Status: COMPLETED Source: [facility] HNO ID: [id number] Author: CHELSEA FUENTES Mammo Tech Service: ? Author Type: Technologist Type: Progress Notes Filed: 06/05/2025 14:01 Note Text: Radiology Service Progress Note PATIENT NAME: Klaudia Blackburn DATE OF SERVICE: June 05, 2025 TIME: 2:01 PM PATIENT IDENTITY VERIFICATION COMPLETED USING TWO (2) IDENTIFIERS: Name and Date of confirmed by patient verbally. FALL SCREENING: Has the patient had 2 falls in the last year or 1 fall with injury or currently using an Ambulatory Assistive Device (Walker, Cane, Wheelchair, Crutches, etc.)? No PATIENT GENDER DATA: Assigned female at . status: : No status: NO. PATIENT RELEVANT IMPLANT DATA REVIEWED: Not Applicable PATIENT PRESENTS WITH AN IMPLANTABLE OR ATTACHED PLUMBING AND HEATING CONTRACTOR: No RADIOLOGY DEPARTMENT: Mammography PERIPHERAL IV DATA: Not applicable SIGNED BY: Nikolay Santiago June 05, 2025 2:01 PM PROGRESS Observed: 02/21/2025 4:00 PM Status: COMPLETED Source: [facility] HNO ID: [id number] Author: MARY AVILA RN Service: ? Author Type: Registered Nurse Type: Progress Notes Filed: 02/21/2025 16:16 Note Text: CDM Care Path Telephonic Outreach Provider Action/COLUMBA N/A Patient identified by Name and Date of . Discussed care with patient. CD Update Briefly spoke with the pt. At this time who explained that she sent a message to let this nurse know she did not feel she needed the calls ongoing any longer as her BP is well managed and controlled. This nurse did not receive that message as she said she sent it as a text to the H@H # Ongoing calls moving forward will be cancelled per the pt. Request as she is no longer interested. Gave the pt. The H@H # again and explained that she would now use the nurse organizational effectiveness consultant option if she were to ever need assistance moving forward. Program Details Chronic Disease Management Status: Declined Patient Declined - After Starting Program Effective Dates: 01/18/2025 - 02/21/2025 Responsible Staff: Mary Avila, EDMAR Support and Services: None active Program Goals Targets Target Due Completed Completed By Outcome General education provided (managing stress, where to go/how to contact, etc.) 02/19/2025 01/18/2025 Mary Avila RN Complete Intake assessments completed: ADLs, Fall Risk, SDOH 02/19/2025 01/18/2025 Mary Avila RN Complete Assessments No documentation this encounter Interventions No episode Mary Avila RN February 21, 2025 4:00 PM CNPTOUTREACH Observed: 02/21/2025 12:00 AM Status: COMPLETED Source: [facility] Patient Outreach ([facility]) KLAUDIA BLACKBURN ([id number]) 1940 F Date Time Provider Department 02/21/25 MARY AVILA During your visit today, we recorded the following information about you: Mary Avila RN 02/21/2025 4:16 PM Signed [facility] Care Path Telephonic Outreach Provider Action/COLUMBA N/A Patient identified by Name and Date of . Discussed care with patient. CDM Update Briefly spoke with the pt. At this time who explained that she sent a message to let this nurse know she did not feel she needed the calls ongoing any longer as her BP is well managed and controlled. This nurse did not receive that message as she said she sent it as a text to the H@H # Ongoing calls moving forward will be cancelled per the pt. Request as she is no longer interested. Gave the pt. The H@H # again and explained that she would now use the nurse organizational effectiveness consultant option if she were to ever need assistance moving forward. Program Details Chronic Disease Management Status: Declined Patient Declined - After Starting Program Effective Dates: 01/18/2025 - 02/21/2025 Responsible Staff: Mary Avila RN Support and Services: None active Program Goals Targets Target Due Completed Completed By Outcome General education provided (managing stress, where to go/how to contact, etc.) 02/19/2025 01/18/2025 Mary Avila RN Complete Intake assessments completed: ADLs, Fall Risk, SDOH 02/19/2025 01/18/2025 Mary Avila RN Complete Assessments No documentation this encounter Interventions No episode Mary Avila RN February 21, 2025 4:00 PM Allergies As of Date: 02/21/2025 Noted Allergy Reaction PREVACID (LANSOPRAZOLE) 03/12/2021 8 - GI Upset Comments: Diarrhea NITROGLYCERIN 03/25/2021 14 - Other: See Comments Comments: Decrease blood pressure PSEUDOEPHEDRINE 06/04/2021 14 - Other: See Comments Date Reviewed: 01/16/2025 Reviewed by: Nelsy De Los Santos MA - Fully Assessed Prescriptions as of 02/21/2025 - amLODIPine (NORVASC) 2.5 mg tablet Take 1 tablet by mouth two times a day. - levothyroxine (SYNTHROID) 100 mcg tablet Take 1.5 tablets on Mon,Wed, Fri and 1 tablet all other days. - Oxyquinoline-Na Lauryl Sulfate (TRIMO-GODINEZ JELLY) 0.025-0.01 % gel Use 1 Inch vaginally as directed. For pessary cleaning and re-insertion - estradiol (ESTRACE) 0.01 % (0.1 mg/gram) vaginal cream Apply 0.5 g intravaginally twice weekly. - ALIGN PROBIOTIC RESISTANCE CAPSULE Take 1 capsule by mouth once daily. - clotrimazole-betamethasone (LOTRISONE) cream Apply 1 application to affected area twice daily. - aluminum hydrox-magnesium carb (GAVISCON EXTRA STRENGTH) 160-105 mg chew Take 2 tablets by mouth four times daily. - simethicone (GAS-X ORAL) Take by mouth once daily as needed. - MELATONIN ORAL Take 5 mg by mouth daily at bedtime. - calcium carbonate/vitamin d3(CALCIUM 600 WITH VITAMIN D3 600 MG (1,500)-200 UNIT TAB) Take one(1) tablet daily. - THERAPEUTIC MULTIVITAMIN TAB Take one(1) tablet daily. Problem List As Of Date 02/21/2025 Noted Resolved Extrinsic Asthma, Unspecified [J45.909] 11/10/2005 06/05/2009 Personal history of other malignant neoplasm of*03/29/2006 Hypothyroidism [E03.9] Diverticulosis of colon [K57.30] Constipation [K59.00] Unspecified hemorrhoids without mention of comp* 05/04/2016 Unspecified asthma [J45.909] LIPOMA OTHER SKIN AND SUBCUTANEOUS [D17.39] 03/28/2007 06/05/2009 Sebaceous Cyst [L72.3] 03/27/2009 06/05/2009 Routine gynecological examination [Z01.419] 06/05/2009 Class: Chronic Hyperlipidemia [E78.5] 06/05/2009 Osteopenia [M85.80] 06/05/2009 Back pain [M54.9] 04/23/2011 Neck pain, musculoskeletal [M54.2] 04/23/2011 Arthritis [M19.90] 09/30/2012 Hypertension [I10] 09/13/2012 CKD (chronic kidney disease) stage 3, GFR 30-59*04/05/2018 01/16/2025 Microscopic hematuria [R31.29] 11/15/2024 Encounter Status:Closed by MARY AVILA on 02/21/25 PROGRESS Observed: 01/18/2025 3:52 PM Status: COMPLETED Source: [facility] HNO ID: [id number] Author: MARY AVILA RN Service: ? Author Type: Registered Nurse Type: Progress Notes Filed: 01/18/2025 16:03 Note Text: CDM ENROLLMENT Provider Action / FYI: N/A Patient identified by name and date of . Discussed care with patient. CDM Update Spoke with the pt. At this time who is interested in ongoing outreach calls H@H Information and where to go for care sent over in message Program Details Chronic Disease Management Status: Enrolled Effective Dates: 01/18/2025 - present Responsible Staff: Mary Avila RN Support and Services: Hypertension, Chronic Kidney Disease (CKD) Assessments CDM Assessment Medications: Do you have any questions about taking your medications or which medications you should be taking?: No Do you need any medication refills at this time, including any of the medication you might take only when needed?: No Social: It can be normal to feel anxious or down during a time like this. Would you like to talk to a mental health professional about how you have been feeling?: No Symptoms: Are you experiencing any new or worsening symptoms that you need to talk about today?: No ADLs Patients can perform the following activities without help: Bathing: Yes Dressing: Yes Eating: Yes Transferring: Yes Toileting: Yes Walking : Yes Instrumental activities of daily living Grocery Shopping: Yes Driving / Use Public Transportation: Yes Using Telephone: Yes Meal Preparation: Yes Housework: Yes Home Repair: No Doing laundry: Yes Taking Medications: Yes Handling finances: Yes Fall Risk One or more falls in the last year:: No Any near falls in the last year?: No Advised to use a cane or walker to get around safely:: No Feels unsteady when walking:: No Steadies self on furniture while walking at home:: No Worried about falling:: No Needs to push with hands when rising from a chair:: No Has trouble stepping up onto a curb:: No Often has to asher to the toilet:: No Has lost some feeling in feet:: No Takes medicine that makes him/her feel lightheaded or more tired than usual:: No Takes medicine to sleep or improve mood:: No SDOH Financial Resource Strain How hard is it for you to pay for the very basics like food, housing, medical care, and heating?: Not hard at all Housing Stability In the last 12 months, was there a time when you were not able to pay the mortgage or rent on time?: No At any time in the past 12 months, were you homeless or living in a long term (including now)?: No Transportation Needs In the past 12 months, has lack of transportation kept you from medical appointments or from getting medications?: No In the past 12 months, has lack of transportation kept you from meetings, work, or from getting things needed for daily living?: No Food Insecurity Within the past 12 months, you worried that your food would run out before you got the money to buy more.: Never true Within the past 12 months, the food you bought just didn't last and you didn't have money to get more.: Never true Utilities In the past 12 months has the electric, gas, oil, or water company threatened to shut off services in your home?: No Tobacco Use Patient reports that she has never smoked. She has never used smokeless tobacco. Interventions The following were addressed during this visit: - Initial enrollment outreach - Month 1: Provide General Education: Smoking Cessation - Month 1: Provide General Education: Where to Go for Care Disposition Based on home administrator, the following disposition is advised: No action needed Mary Avila RN January 18, 2025 3:52 PM CNPTOUTREACH Observed: 01/18/2025 12:00 AM Status: COMPLETED Source: [facility] Patient Outreach ([facility]) KLAUDIA BLACKBURN ([id number]) 1940 F Date Time Provider Department 01/18/25 MARY AVILAKobi During your visit today, we recorded the following information about you: Mary Avila RN 01/18/2025 4:03 PM Signed CDM ENROLLMENT Provider Action / FYI: N/A Patient identified by name and date of . Discussed care with patient. CDM Update Spoke with the pt. At this time who is interested in ongoing outreach calls H@H Information and where to go for care sent over in [facility] message Program Details Chronic Disease Management Status: Enrolled Effective Dates: 01/18/2025 - present Responsible Staff: Mary Avila RN Support and Services: Hypertension, Chronic Kidney Disease (CKD) Assessments CDM Assessment Medications: Do you have any questions about taking your medications or which medications you should be taking?: No Do you need any medication refills at this time, including any of the medication you might take only when needed?: No Social: It can be normal to feel anxious or down during a time like this. Would you like to talk to a mental health professional about how you have been feeling?: No Symptoms: Are you experiencing any new or worsening symptoms that you need to talk about today?: No ADLs Patients can perform the following activities without help: Bathing: Yes Dressing: Yes Eating: Yes Transferring: Yes Toileting: Yes Walking : Yes Instrumental activities of daily living Grocery Shopping: Yes Driving / Use Public Transportation: Yes Using Telephone: Yes Meal Preparation: Yes Housework: Yes Home Repair: No Doing laundry: Yes Taking Medications: Yes Handling finances: Yes Fall Risk One or more falls in the last year:: No Any near falls in the last year?: No Advised to use a cane or walker to get around safely:: No Feels unsteady when walking:: No Steadies self on furniture while walking at home:: No Worried about falling:: No Needs to push with hands when rising from a chair:: No Has trouble stepping up onto a curb:: No Often has to asher to the toilet:: No Has lost some feeling in feet:: No Takes medicine that makes him/her feel lightheaded or more tired than usual:: No Takes medicine to sleep or improve mood:: No SDOH Financial Resource Strain How hard is it for you to pay for the very basics like food, housing, medical care, and heating?: Not hard at all Housing Stability In the last 12 months, was there a time when you were not able to pay the mortgage or rent on time?: No At any time in the past 12 months, were you homeless or living in a long term (including now)?: No Transportation Needs In the past 12 months, has lack of transportation kept you from medical appointments or from getting medications?: No In the past 12 months, has lack of transportation kept you from meetings, work, or from getting things needed for daily living?: No Food Insecurity Within the past 12 months, you worried that your food would run out before you got the money to buy more.: Never true Within the past 12 months, the food you bought just didn't last and you didn't have money to get more.: Never true Utilities In the past 12 months has the [employer], gas, oil, or water company threatened to shut off services in your home?: No Tobacco Use Patient reports that she has never smoked. She has never used smokeless tobacco. Interventions The following were addressed during this visit: - Initial enrollment outreach - Month 1: Provide General Education: Smoking Cessation - Month 1: Provide General Education: Where to Go for Care Disposition Based on home administrator, the following disposition is advised: No action needed aMry Avila RN January 18, 2025 3:52 PM Allergies As of Date: 01/18/2025 Noted Allergy Reaction PREVACID (LANSOPRAZOLE) 03/12/2021 8 - GI Upset Comments: Diarrhea NITROGLYCERIN 03/25/2021 14 - Other: See Comments Comments: Decrease blood pressure PSEUDOEPHEDRINE 06/04/2021 14 - Other: See Comments Date Reviewed: 01/16/2025 Reviewed by: Nelsy De Los Santos MA - Fully Assessed Prescriptions as of 01/18/2025 - amLODIPine (NORVASC) 2.5 mg tablet Take 1 tablet by mouth two times a day. - levothyroxine (SYNTHROID) 100 mcg tablet Take 1.5 tablets on Mon,Wed, Fri and 1 tablet all other days. - Oxyquinoline-Na Lauryl Sulfate (TRIMO-GODINEZ JELLY) 0.025-0.01 % gel Use 1 Inch vaginally as directed. For pessary cleaning and re-insertion - estradiol (ESTRACE) 0.01 % (0.1 mg/gram) vaginal cream Apply 0.5 g intravaginally twice weekly. - ALIGN PROBIOTIC RESISTANCE CAPSULE Take 1 capsule by mouth once daily. - clotrimazole-betamethasone (LOTRISONE) cream Apply 1 application to affected area twice daily. - aluminum hydrox-magnesium carb (GAVISCON EXTRA STRENGTH) 160-105 mg chew Take 2 tablets by mouth four times daily. - simethicone (GAS-X ORAL) Take by mouth once daily as needed. - MELATONIN ORAL Take 5 mg by mouth daily at bedtime. - calcium carbonate/vitamin d3(CALCIUM 600 WITH VITAMIN D3 600 MG (1,500)-200 UNIT TAB) Take one(1) tablet daily. - THERAPEUTIC MULTIVITAMIN TAB Take one(1) tablet daily. Problem List As Of Date 01/18/2025 Noted Resolved Extrinsic Asthma, Unspecified [J45.909] 11/10/2005 06/05/2009 Personal history of other malignant neoplasm of*03/29/2006 Hypothyroidism [E03.9] Diverticulosis of colon [K57.30] Constipation [K59.00] Unspecified hemorrhoids without mention of comp* 05/04/2016 Unspecified asthma [J45.909] LIPOMA OTHER SKIN AND SUBCUTANEOUS [D17.39] 03/28/2007 06/05/2009 Sebaceous Cyst [L72.3] 03/27/2009 06/05/2009 Routine gynecological examination [Z01.419] 06/05/2009 Class: Chronic Hyperlipidemia [E78.5] 06/05/2009 Osteopenia [M85.80] 06/05/2009 Back pain [M54.9] 04/23/2011 Neck pain, musculoskeletal [M54.2] 04/23/2011 Arthritis [M19.90] 09/30/2012 Hypertension [I10] 09/13/2012 CKD (chronic kidney disease) stage 3, GFR 30-59*04/05/2018 01/16/2025 Microscopic hematuria [R31.29] 11/15/2024 Encounter Status:Closed by MARY AVILA on 01/18/25 PROGRESS Observed: 01/16/2025 1:20 PM Status: COMPLETED Source: [facility] HNO ID: [id number] Author: AKOSUA LE MD Service: ? Author Type: Physician Type: Progress Notes Filed: 01/16/2025 13:50 Note Text: Chief Complaint Patient presents with: Follow Up: BP HPI Klaudia Blackburn is a 84 year old female who presents here today for blood pressure follow up. HTN: Pt was seen by Percy Navarro 01/02/25 for [facility] ER follow up for dizziness and HTN. Has a hard time differentiating between dizziness or lightheadedness. She is taking Norvasc 2.5 mg BID but is holding the evening dosages per PCP, but was restarted on taking this twice daily. Advised to bring BP readings from home. She is checking her BP at home twice daily since incident. BP ranging from 117-150/65-90, with BP averaging between 120-130's/70-80's. Pt reports dizziness has decreased and is minimum. Feels that at times she has vertigo symptoms. GI - Chronic ongoing issues with GI symptoms. Yesterday pt called in with increased episodes of gas, bloating, and belching that she couldn't get rid of with her medication. Improved with eating crackers and cheese and settled down through out the day. Takes Gas-X, Probiotic, and Gaviscon. Was advised recently to add Pepcid to regimen. Past medical history, appointments, medications, allergies reviewed. Previous Medical History PAST MEDICAL HISTORY Diagnosis Date Arthritis Constipation History of transfusion Hyperlipidemia Hypertension 09/2012 Hypothyroidism Microscopic hematuria Osteopenia Other malignant neoplasm of skin, site unspecified 08/09/2002 Non-melanoma skin cancer Previous Surgical History PAST SURGICAL HISTORY Procedure Laterality Date COLONOSCOPY FLX DX W/COLLJ SPEC WHEN PFRMD 05/28/2004 Colonoscopy COLONOSCOPY FLX DX W/COLLJ SPEC WHEN PFRMD 11/23/2013 Sessile serrated polyp, repeat 2017 COLONOSCOPY FLX DX W/COLLJ SPEC WHEN PFRMD 11/28/2018 Colonoscopy DILATION AND CURETTAGE DXAND/THER NONOBSTETRIC Dilation AND curettage EGD 10/07/2020 ESOPHAGOGASTRODUODENOSCOPY TRANSORAL DIAGNOSTIC 11/23/2013 gastritis PAST SURGICAL HISTORY OF 10/2002 SKIN CA ON NOSE REMOVED REM LESIO TRUNK,ARM,LEG 3.0-4.0CM 03/27/2009 Exc. back and right arm lesions REMOVAL GALLBLADDER 05/2021 SKIN BIOPSY HX TONSILLECTOMY HX TONSILLECTOMY PRIMARY/SECONDARY <AGE 13 AGE 31 Tonsillectomy TOTAL ABDOMINAL HYSTERECT W/WO RMVL TUBE OVARY 1986 BRO and BSO --> FIBROIDS VAGINAL HYSTERECTOMY Family History FAMILY HISTORY Problem Relation Age of Onset Cancer Mother renal ca Diabetes Mother late in life Coronary Artery Disease Father 69 [place] Lipids Father High Cholesterol Prostate Cancer Brother No Known Problems Brother Coronary Artery Disease Paternal Grandmother No Known Problems Daughter No Known Problems Son No Known Problems Son Breast Cancer Sister fraternal twin sister Patient Allergies ALLERGIES Allergen Reactions Prevacid [Lansopraz* GI Upset Diarrhea Nitroglycerin Other: See Comments Decrease blood pressure Pseudoephedrine Other: See Comments Current Medications Current Outpatient Medications on File Prior to Visit Medication Sig amLODIPine (NORVASC) 2.5 mg tablet Take 1 tablet by mouth two times a day. levothyroxine (SYNTHROID) 100 mcg tablet Take 1.5 tablets on Mon,Wed, Fri and 1 tablet all other days. Oxyquinoline-Na Lauryl Sulfate (TRIMO-GODINEZ JELLY) 0.025-0.01 % gel Use 1 Inch vaginally as directed. For pessary cleaning and re-insertion estradiol (ESTRACE) 0.01 % (0.1 mg/gram) vaginal cream Apply 0.5 g intravaginally twice weekly. ALIGN PROBIOTIC RESISTANCE CAPSULE Take 1 capsule by mouth once daily. clotrimazole-betamethasone (LOTRISONE) cream Apply 1 application to affected area twice daily. aluminum hydrox-magnesium carb (GAVISCON EXTRA STRENGTH) 160-105 mg chew Take 2 tablets by mouth four times daily. simethicone (GAS-X ORAL) Take by mouth once daily as needed. MELATONIN ORAL Take 5 mg by mouth daily at bedtime. calcium carbonate/vitamin d3(CALCIUM 600 WITH VITAMIN D3 600 MG (1,500)-200 UNIT TAB) Take one(1) tablet daily. THERAPEUTIC MULTIVITAMIN TAB Take one(1) tablet daily. No current facility-administered medications on file prior to visit. Social History Social History Tobacco Use Smoking status: Never Smokeless tobacco: Never Vaping Use Vaping status: Never Used Substance Use Topics Alcohol use: Not Currently Drug use: Never EXAM: BP 116/68 (BP Site: Left Arm, BP Position: Sitting, BP Cuff Size: Regular Adult) Pulse 64 Resp 20 Wt 74.8 kg (164 lb 14.5 oz) BMI 25.45 kg/m? General Appearance: Well appearing, alert, in no acute distress, well-hydrated, well nourished.. Lungs: Lungs clear to auscultation. No wheezing, rhonchi, rales.. Heart: RRR without murmur, gallop, or rubs. No ectopy. Health Maintenance List DTaP,Tdap,Td Vaccine(2 - Td or Tdap) due on 04/02/2024 RSV Vaccine(1 - 1-dose 75+ series) due on 06/20/2025 Covid-19 Vaccine( season) due on 12/19/2025 Depression Screening due on 12/19/2025 Anxiety Screening due on 12/19/2025 Diabetes Screening due on 12/16/2027 Bone Density Screening Completed Influenza Vaccine Completed Advance Directive Discussion Completed Shingrix Vaccine Completed Pneumococcal Vaccine: 50+ Completed Colorectal Cancer Screening Discontinued Data reviewed Appointment on 12/15/2024 Component Date Value Protein, Total 12/15/2024 7.0 Albumin 12/15/2024 4.1 Calcium, Total 12/15/2024 9.9 Bilirubin, Total 12/15/2024 0.5 Alkaline Phosphatase 12/15/2024 88 AST 12/15/2024 18 ALT 12/15/2024 14 Glucose 12/15/2024 93 BUN 12/15/2024 24 (H) Creatinine 12/15/2024 0.94 Sodium 12/15/2024 141 Potassium 12/15/2024 4.0 Chloride 12/15/2024 104 CO2 12/15/2024 26 Anion Gap 12/15/2024 11 Estimated Glomerular Babar* 12/15/2024 60 Cholesterol, Total 12/15/2024 199 Triglyceride 12/15/2024 106 HDL Cholesterol 12/15/2024 59 Non HDL Cholesterol 12/15/2024 140 (H) Fasting Time 12/15/2024 10 VLDL Cholesterol 12/15/2024 21 TC:HDL Ratio 12/15/2024 3.37 LDL Cholesterol, Calcula* 12/15/2024 119 (H) LDL:HDL Ratio 12/15/2024 2.02 Office Visit on 12/05/2024 Component Date Value GLUCOSE UA (POCT) 12/05/2024 Negative BILIRUBIN UA (POCT) 12/05/2024 Negative KETONE UA (POCT) 12/05/2024 Negative SPECIFIC GRAVITY UA (POC* 12/05/2024 1.015 HEMOGLOBIN/BLOOD UA (PO* 12/05/2024 Trace-intact (A) PH UA (POCT) 12/05/2024 7.5 PROTEIN UA (POCT) 12/05/2024 Negative UROBILINOGEN UA (POCT) 12/05/2024 0.2 NITRITE UA (POCT) 12/05/2024 Negative LEUKOCYTES UA (POCT) 12/05/2024 Trace (A) COLOR UA (POCT) 12/05/2024 Light yellow CLARITY UA (POCT) 12/05/2024 Cloudy ASSESSMENT/PLAN: 1. Hypertension, unspecified type - ICD9: 401.9, ICD10: I10 (primary diagnosis) - Controlled - Continue current medications - Recommend home blood pressure monitoring, to bring results to next visit 2. Hypothyroidism, unspecified type - ICD9: 244.9, ICD10: E03.9 - Instructed patient on importance of taking on an empty stomach either first thing in the morning or at bedtime. - continue current dose of Synthroid 0.100 mg 3. Dizziness - ICD9: 780.4, ICD10: R42 Resolved; uncertain cause 4. GERD without esophagitis - ICD9: 530.81, ICD10: K21.9 Continue current medications. As she is feeling better now will continue current treatment; call if symptoms recur Follow up in 5 months as planned Medical Decision Making: Problems: Moderate: 2+ stable chronic illnesses Risk: Moderate: Drug management Medical Decision Making Level: 4 - Moderate Akosua Le MD CNOV Observed: 01/16/2025 1:20 PM Status: COMPLETED Source: [facility] Office Visit ([facility] KLAUDIA BLACKBURN ([id number]) 1940 F Date Time Provider Department 01/16/25 1:20 PM AKOSUA LEWS During your visit today, we recorded the following information about you: Pulse Respiration Blood pressure Weight 64/minute 20/minute 116/68 74.8 kg Akosua Le MD 01/16/2025 1:50 PM Signed Chief Complaint Patient presents with: Follow Up: BP HPI Klaudia Blackburn is a 84 year old female who presents here today for blood pressure follow up. HTN: Pt was seen by Percy Navarro 01/02/25 for [facility] ER follow up for dizziness and HTN. Has a hard time differentiating between dizziness or lightheadedness. She is taking Norvasc 2.5 mg BID but is holding the evening dosages per PCP, but was restarted on taking this twice daily. Advised to bring BP readings from home. She is checking her BP at home twice daily since incident. BP ranging from 117-150/65-90, with BP averaging between 120-130's/70-80's. Pt reports dizziness has decreased and is minimum. Feels that at times she has vertigo symptoms. GI - Chronic ongoing issues with GI symptoms. Yesterday pt called in with increased episodes of gas, bloating, and belching that she couldn't get rid of with her medication. Improved with eating crackers and cheese and settled down through out the day. Takes Gas-X, Probiotic, and Gaviscon. Was advised recently to add Pepcid to regimen. Past medical history, appointments, medications, allergies reviewed. Previous Medical History PAST MEDICAL HISTORY Diagnosis Date Arthritis Constipation History of transfusion Hyperlipidemia Hypertension 09/2012 Hypothyroidism Microscopic hematuria Osteopenia Other malignant neoplasm of skin, site unspecified 08/09/2002 Non-melanoma skin cancer Previous Surgical History PAST SURGICAL HISTORY Procedure Laterality Date COLONOSCOPY FLX DX W/COLLJ SPEC WHEN PFRMD 05/28/2004 Colonoscopy COLONOSCOPY FLX DX W/COLLJ SPEC WHEN PFRMD 11/23/2013 Sessile serrated polyp, repeat 2017 COLONOSCOPY FLX DX W/COLLJ SPEC WHEN PFRMD 11/28/2018 Colonoscopy DILATION AND CURETTAGE DXAND/THER NONOBSTETRIC Dilation AND curettage EGD 10/07/2020 ESOPHAGOGASTRODUODENOSCOPY TRANSORAL DIAGNOSTIC 11/23/2013 gastritis PAST SURGICAL HISTORY OF 10/2002 SKIN CA ON NOSE REMOVED REM LESIO TRUNK,ARM,LEG 3.0-4.0CM 03/27/2009 Exc. back and right arm lesions REMOVAL GALLBLADDER 05/2021 SKIN BIOPSY HX TONSILLECTOMY HX TONSILLECTOMY PRIMARY/SECONDARY <AGE 13 AGE 31 Tonsillectomy TOTAL ABDOMINAL HYSTERECT W/WO RMVL TUBE OVARY 1986 BRO and BSO --> FIBROIDS VAGINAL HYSTERECTOMY Family History FAMILY HISTORY Problem Relation Age of Onset Cancer Mother renal ca Diabetes Mother late in life Coronary Artery Disease Father 69 [place] Lipids Father High Cholesterol Prostate Cancer Brother No Known Problems Brother Coronary Artery Disease Paternal Grandmother No Known Problems Daughter No Known Problems Son No Known Problems Son Breast Cancer Sister fraternal twin sister Patient Allergies ALLERGIES Allergen Reactions Prevacid [Lansopraz* GI Upset Diarrhea Nitroglycerin Other: See Comments Decrease blood pressure Pseudoephedrine Other: See Comments Current Medications Current Outpatient Medications on File Prior to Visit Medication Sig amLODIPine (NORVASC) 2.5 mg tablet Take 1 tablet by mouth two times a day. levothyroxine (SYNTHROID) 100 mcg tablet Take 1.5 tablets on Mon,Wed, Fri and 1 tablet all other days. Oxyquinoline-Na Lauryl Sulfate (TRIMO-GODINEZ JELLY) 0.025-0.01 % gel Use 1 Inch vaginally as directed. For pessary cleaning and re-insertion estradiol (ESTRACE) 0.01 % (0.1 mg/gram) vaginal cream Apply 0.5 g intravaginally twice weekly. ALIGN PROBIOTIC RESISTANCE CAPSULE Take 1 capsule by mouth once daily. clotrimazole-betamethasone (LOTRISONE) cream Apply 1 application to affected area twice daily. aluminum hydrox-magnesium carb (GAVISCON EXTRA STRENGTH) 160-105 mg chew Take 2 tablets by mouth four times daily. simethicone (GAS-X ORAL) Take by mouth once daily as needed. MELATONIN ORAL Take 5 mg by mouth daily at bedtime. calcium carbonate/vitamin d3(CALCIUM 600 WITH VITAMIN D3 600 MG (1,500)-200 UNIT TAB) Take one(1) tablet daily. THERAPEUTIC MULTIVITAMIN TAB Take one(1) tablet daily. No current facility-administered medications on file prior to visit. Social History Social History Tobacco Use Smoking status: Never Smokeless tobacco: Never Vaping Use Vaping status: Never Used Substance Use Topics Alcohol use: Not Currently Drug use: Never EXAM: BP 116/68 (BP Site: Left Arm, BP Position: Sitting, BP Cuff Size: Regular Adult) Pulse 64 Resp 20 Wt 74.8 kg (164 lb 14.5 oz) BMI 25.45 kg/m? General Appearance: Well appearing, alert, in no acute distress, well-hydrated, well nourished.. Lungs: Lungs clear to auscultation. No wheezing, rhonchi, rales.. Heart: RRR without murmur, gallop, or rubs. No ectopy. Health Maintenance List DTaP,Tdap,Td Vaccine(2 - Td or Tdap) due on 04/02/2024 RSV Vaccine(1 - 1-dose 75+ series) due on 06/20/2025 Covid-19 Vaccine(2023- season) due on 12/19/2025 Depression Screening due on 12/19/2025 Anxiety Screening due on 12/19/2025 Diabetes Screening due on 12/16/2027 Bone Density Screening Completed Influenza Vaccine Completed Advance Directive Discussion Completed Shingrix Vaccine Completed Pneumococcal Vaccine: 50+ Completed Colorectal Cancer Screening Discontinued Data reviewed Appointment on 12/15/2024 Component Date Value Protein, Total 12/15/2024 7.0 Albumin 12/15/2024 4.1 Calcium, Total 12/15/2024 9.9 Bilirubin, Total 12/15/2024 0.5 Alkaline Phosphatase 12/15/2024 88 AST 12/15/2024 18 ALT 12/15/2024 14 Glucose 12/15/2024 93 BUN 12/15/2024 24 (H) Creatinine 12/15/2024 0.94 Sodium 12/15/2024 141 Potassium 12/15/2024 4.0 Chloride 12/15/2024 104 CO2 12/15/2024 26 Anion Gap 12/15/2024 11 Estimated Glomerular Babar* 12/15/2024 60 Cholesterol, Total 12/15/2024 199 Triglyceride 12/15/2024 106 HDL Cholesterol 12/15/2024 59 Non HDL Cholesterol 12/15/2024 140 (H) Fasting Time 12/15/2024 10 VLDL Cholesterol 12/15/2024 21 TC:HDL Ratio 12/15/2024 3.37 LDL Cholesterol, Calcula* 12/15/2024 119 (H) LDL:HDL Ratio 12/15/2024 2.02 Office Visit on 12/05/2024 Component Date Value GLUCOSE UA (POCT) 12/05/2024 Negative BILIRUBIN UA (POCT) 12/05/2024 Negative KETONE UA (POCT) 12/05/2024 Negative SPECIFIC GRAVITY UA (POC* 12/05/2024 1.015 HEMOGLOBIN/BLOOD UA (PO* 12/05/2024 Trace-intact (A) PH UA (POCT) 12/05/2024 7.5 PROTEIN UA (POCT) 12/05/2024 Negative UROBILINOGEN UA (POCT) 12/05/2024 0.2 NITRITE UA (POCT) 12/05/2024 Negative LEUKOCYTES UA (POCT) 12/05/2024 Trace (A) COLOR UA (POCT) 12/05/2024 Light yellow CLARITY UA (POCT) 12/05/2024 Cloudy ASSESSMENT/PLAN: 1. Hypertension, unspecified type - ICD9: 401.9, ICD10: I10 (primary diagnosis) - Controlled - Continue current medications - Recommend home blood pressure monitoring, to bring results to next visit 2. Hypothyroidism, unspecified type - ICD9: 244.9, ICD10: E03.9 - Instructed patient on importance of taking on an empty stomach either first thing in the morning or at bedtime. - continue current dose of Synthroid 0.100 mg 3. Dizziness - ICD9: 780.4, ICD10: R42 Resolved; uncertain cause 4. GERD without esophagitis - ICD9: 530.81, ICD10: K21.9 Continue current medications. As she is feeling better now will continue current treatment; call if symptoms recur Follow up in 5 months as planned Medical Decision Making: Problems: Moderate: 2+ stable chronic illnesses Risk: Moderate: Drug management Medical Decision Making Level: 4 - Moderate Akosua Le MD Allergies As of Date: 01/16/2025 Noted Allergy Reaction PREVACID (LANSOPRAZOLE) 03/12/2021 8 - GI Upset Comments: Diarrhea NITROGLYCERIN 03/25/2021 14 - Other: See Comments Comments: Decrease blood pressure PSEUDOEPHEDRINE 06/04/2021 14 - Other: See Comments Date Reviewed: 01/16/2025 Reviewed by: Nelsy De Los Santos MA - Fully Assessed Reason for Visit: Follow Up [171] Cmt: BP Primary Visit Diagnosis:Hypertension, unspecified type [I10] Other Visit Diagnoses:Hypothyroidism, unspecified type [E03.9] Dizziness [R42] GERD without esophagitis [K21.9] Prescriptions as of 01/16/2025 - amLODIPine (NORVASC) 2.5 mg tablet Take 1 tablet by mouth two times a day. - levothyroxine (SYNTHROID) 100 mcg tablet Take 1.5 tablets on Mon,Wed, Fri and 1 tablet all other days. - Oxyquinoline-Na Lauryl Sulfate (TRIMO-GODINEZ JELLY) 0.025-0.01 % gel Use 1 Inch vaginally as directed. For pessary cleaning and re-insertion - estradiol (ESTRACE) 0.01 % (0.1 mg/gram) vaginal cream Apply 0.5 g intravaginally twice weekly. - ALIGN PROBIOTIC RESISTANCE CAPSULE Take 1 capsule by mouth once daily. - clotrimazole-betamethasone (LOTRISONE) cream Apply 1 application to affected area twice daily. - aluminum hydrox-magnesium carb (GAVISCON EXTRA STRENGTH) 160-105 mg chew Take 2 tablets by mouth four times daily. - simethicone (GAS-X ORAL) Take by mouth once daily as needed. - MELATONIN ORAL Take 5 mg by mouth daily at bedtime. - calcium carbonate/vitamin d3(CALCIUM 600 WITH VITAMIN D3 600 MG (1,500)-200 UNIT TAB) Take one(1) tablet daily. - THERAPEUTIC MULTIVITAMIN TAB Take one(1) tablet daily. 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] 03/28/2007 06/05/2009 Sebaceous Cyst [L72.3] 03/27/2009 06/05/2009 Routine gynecological examination [Z01.419] 06/05/2009 Class: Chronic Hyperlipidemia [E78.5] 06/05/2009 Osteopenia [M85.80] 06/05/2009 Back pain [M54.9] 04/23/2011 Neck pain, musculoskeletal [M54.2] 04/23/2011 Arthritis [M19.90] 09/30/2012 Hypertension [I10] 09/13/2012 CKD (chronic kidney disease) stage 3, GFR 30-59*04/05/2018 01/16/2025 Microscopic hematuria [R31.29] 11/15/2024 Level of Service: OFFICE/OUTPATIENT ESTABLISHED MOD MDM 30 MIN [50442] Additional E/M codes: VISIT CPLX INHERENT EANDM ASSOC WITH MED * Encounter Status:Closed by AKOSUA LE on 01/16/25 ELEANOR Observed: 01/02/2025 2:00 PM Status: COMPLETED Source: [facility] KLAUDIA BLACKBURN ([id number]) 1940 F Date Time Provider Department 01/02/25 2:00 PM PERCY NAVARRO [facility] During your visit today, we recorded the following information about you: Pulse Blood pressure Weight 81/minute 126/80 75 kg Percy Navarro APRN.TELECOMMUNICATIONS LINE MECHANIC 01/02/2025 2:30 PM Signed Chief Complaint Patient presents with: ER F/U HPI Klaudia Blackburn is a 84 year old female who presents here today for Above Complaints.. Patient presents for ER follow up. Patient was seen at [facility] for hypertension, dizziness. Currently on amlodipine 2.5mg BID but had been holding evening dose per Dr. Le. Reports at home she is typically well controlled but has occasional symptomatic high BP. Does not take home BP regularly. Past medical history, appointments, medications, allergies reviewed. Previous Medical History PAST MEDICAL HISTORY Diagnosis Date Arthritis Constipation History of transfusion Hyperlipidemia Hypertension 09/2012 Hypothyroidism Microscopic hematuria Osteopenia Other malignant neoplasm of skin, site unspecified 08/09/2002 Non-melanoma skin cancer Previous Surgical History PAST SURGICAL HISTORY Procedure Laterality Date COLONOSCOPY FLX DX W/COLLJ SPEC WHEN PFRMD 05/28/2004 Colonoscopy COLONOSCOPY FLX DX W/COLLJ SPEC WHEN PFRMD 11/23/2013 Sessile serrated polyp, repeat 2017 COLONOSCOPY FLX DX W/COLLJ SPEC WHEN PFRMD 11/28/2018 Colonoscopy DILATION AND CURETTAGE DXAND/THER NONOBSTETRIC Dilation AND curettage EGD 10/07/2020 ESOPHAGOGASTRODUODENOSCOPY TRANSORAL DIAGNOSTIC 11/23/2013 gastritis PAST SURGICAL HISTORY OF 10/2002 SKIN CA ON NOSE REMOVED REM LESIO TRUNK,ARM,LEG 3.0-4.0CM 03/27/2009 Exc. back and right arm lesions REMOVAL GALLBLADDER 05/2021 SKIN BIOPSY HX TONSILLECTOMY HX TONSILLECTOMY PRIMARY/SECONDARY <AGE 13 AGE 31 Tonsillectomy TOTAL ABDOMINAL HYSTERECT W/WO RMVL TUBE OVARY 1986 BRO and BSO --> FIBROIDS VAGINAL HYSTERECTOMY Family History FAMILY HISTORY Problem Relation Age of Onset Cancer Mother renal ca Diabetes Mother late in life Coronary Artery Disease Father 69 [place] Lipids Father High Cholesterol Prostate Cancer Brother No Known Problems Brother Coronary Artery Disease Paternal Grandmother No Known Problems Daughter No Known Problems Son No Known Problems Son Breast Cancer Sister fraternal twin sister Patient Allergies ALLERGIES Allergen Reactions Prevacid [Lansopraz* GI Upset Diarrhea Nitroglycerin Other: See Comments Decrease blood pressure Pseudoephedrine Other: See Comments Current Medications Current Outpatient Medications on File Prior to Visit Medication Sig amLODIPine (NORVASC) 2.5 mg tablet Take 1 tablet by mouth two times a day. levothyroxine (SYNTHROID) 100 mcg tablet Take 1.5 tablets on Mon,Wed, Fri and 1 tablet all other days. Oxyquinoline-Na Lauryl Sulfate (TRIMO-GODINEZ JELLY) 0.025-0.01 % gel Use 1 Inch vaginally as directed. For pessary cleaning and re-insertion estradiol (ESTRACE) 0.01 % (0.1 mg/gram) vaginal cream Apply 0.5 g intravaginally twice weekly. ALIGN PROBIOTIC RESISTANCE CAPSULE Take 1 capsule by mouth once daily. clotrimazole-betamethasone (LOTRISONE) cream Apply 1 application to affected area twice daily. aluminum hydrox-magnesium carb (GAVISCON EXTRA STRENGTH) 160-105 mg chew Take 2 tablets by mouth four times daily. simethicone (GAS-X ORAL) Take by mouth once daily as needed. MELATONIN ORAL Take 5 mg by mouth daily at bedtime. calcium carbonate/vitamin d3(CALCIUM 600 WITH VITAMIN D3 600 MG (1,500)-200 UNIT TAB) Take one(1) tablet daily. THERAPEUTIC MULTIVITAMIN TAB Take one(1) tablet daily. No current facility-administered medications on file prior to visit. Social History Social History Tobacco Use Smoking status: Never Smokeless tobacco: Never Vaping Use Vaping status: Never Used Substance Use Topics Alcohol use: Not Currently Drug use: Never Review of Symptoms REVIEW OF SYSTEMS SEE HPI EXAM: BP 126/80 Pulse 81 Wt 75 kg (165 lb 5.5 oz) BMI 25.51 kg/m? General Appearance: Well appearing, alert, in no acute distress, well-hydrated, well nourished. Lungs: Lungs clear to auscultation. No wheezing, rhonchi, rales.. Heart: RRR without murmur, gallop, or rubs. No ectopy. Health Maintenance List DTaP,Tdap,Td Vaccine(2 - Td or Tdap) due on 04/02/2024 RSV Vaccine(1 - 1-dose 75+ series) due on 06/20/2025 Covid-19 Vaccine( season) due on 12/19/2025 Depression Screening due on 12/19/2025 Anxiety Screening due on 12/19/2025 Diabetes Screening due on 12/16/2027 Bone Density Screening Completed Influenza Vaccine Completed Advance Directive Discussion Completed Shingrix Vaccine Completed Pneumococcal Vaccine: 50+ Completed Colorectal Cancer Screening Discontinued Data reviewed Last 5 Encounter BP Readings: Date: BP: 01/02/2025 126/80 12/19/2024 128/74 12/05/2024 136/78 11/14/2024 136/78 10/07/2024 142/80 ASSESSMENT/PLAN: 1. Hypertension, unspecified type - ICD9: 401.9, ICD10: I10 - Controlled - Continue current medications - Recommend home blood pressure monitoring, to bring results to next visit - Encouraged sodium restriction, DASH or Mediterranean diet - Recommend regular aerobic exercise - Discussed need for and benefit of weight loss. BMI 25.51 kg/(m2) - Take BP daily 1 hour after am dose and before bed for 2 weeks and follow up with Dr. Le or Ricardo. Percy Navarro APRN.Percy Nunn APRN.TELECOMMUNICATIONS LINE MECHANIC 01/02/2025 2:10 PM Addendum -Take BP daily 1 hour after am dose and before bed for 2 weeks and follow up with Dr. Le or Ricardo. Allergies As of Date: 01/02/2025 Noted Allergy Reaction PREVACID (LANSOPRAZOLE) 03/12/2021 8 - GI Upset Comments: Diarrhea NITROGLYCERIN 03/25/2021 14 - Other: See Comments Comments: Decrease blood pressure PSEUDOEPHEDRINE 06/04/2021 14 - Other: See Comments Date Reviewed: 01/02/2025 Reviewed by: Nisha Kulkarni MA - Fully Assessed Reason for Visit: ER F/U [41] Primary Visit Diagnosis:Hypertension, unspecified type [I10] Prescriptions as of 01/02/2025 - amLODIPine (NORVASC) 2.5 mg tablet Take 1 tablet by mouth two times a day. - levothyroxine (SYNTHROID) 100 mcg tablet Take 1.5 tablets on Mon,Wed, Fri and 1 tablet all other days. - Oxyquinoline-Na Lauryl Sulfate (TRIMO-GODINEZ JELLY) 0.025-0.01 % gel Use 1 Inch vaginally as directed. For pessary cleaning and re-insertion - estradiol (ESTRACE) 0.01 % (0.1 mg/gram) vaginal cream Apply 0.5 g intravaginally twice weekly. - ALIGN PROBIOTIC RESISTANCE CAPSULE Take 1 capsule by mouth once daily. - clotrimazole-betamethasone (LOTRISONE) cream Apply 1 application to affected area twice daily. - aluminum hydrox-magnesium carb (GAVISCON EXTRA STRENGTH) 160-105 mg chew Take 2 tablets by mouth four times daily. - simethicone (GAS-X ORAL) Take by mouth once daily as needed. - MELATONIN ORAL Take 5 mg by mouth daily at bedtime. - calcium carbonate/vitamin d3(CALCIUM 600 WITH VITAMIN D3 600 MG (1,500)-200 UNIT TAB) Take one(1) tablet daily. - THERAPEUTIC MULTIVITAMIN TAB Take one(1) tablet daily. 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 Le or Ricardo. Disposition: Return in about 2 weeks (around 01/16/2025). Follow-up and Disposition History for Encounter Date Provider Department Center 01/02/2025 [id number] NAVARRO [facility] Encounter Status:Closed by PERCY NAVARRO on 01/02/25 PROGRESS Observed: 01/02/2025 1:49 PM Status: COMPLETED Source: [facility] HNO ID: [id number] Author: PERCY NAVARRO APRN.TELECOMMUNICATIONS LINE MECHANIC Service: ? Author Type: Nurse Practitioner Type: Progress Notes Filed: 01/02/2025 14:30 Note Text: Chief Complaint Patient presents with: ER F/U HPI Klaudia Blackburn is a 84 year old female who presents here today for Above Complaints.. Patient presents for ER follow up. Patient was seen at [facility] for hypertension, dizziness. Currently on amlodipine 2.5mg BID but had been holding evening dose per Dr. Le. Reports at home she is typically well controlled but has occasional symptomatic high BP. Does not take home BP regularly. Past medical history, appointments, medications, allergies reviewed. Previous Medical History PAST MEDICAL HISTORY Diagnosis Date Arthritis Constipation History of transfusion Hyperlipidemia Hypertension 09/2012 Hypothyroidism Microscopic hematuria Osteopenia Other malignant neoplasm of skin, site unspecified 08/09/2002 Non-melanoma skin cancer Previous Surgical History PAST SURGICAL HISTORY Procedure Laterality Date COLONOSCOPY FLX DX W/COLLJ SPEC WHEN PFRMD 05/28/2004 Colonoscopy COLONOSCOPY FLX DX W/COLLJ SPEC WHEN PFRMD 11/23/2013 Sessile serrated polyp, repeat 2017 COLONOSCOPY FLX DX W/COLLJ SPEC WHEN PFRMD 11/28/2018 Colonoscopy DILATION AND CURETTAGE DXAND/THER NONOBSTETRIC Dilation AND curettage EGD 10/07/2020 ESOPHAGOGASTRODUODENOSCOPY TRANSORAL DIAGNOSTIC 11/23/2013 gastritis PAST SURGICAL HISTORY OF 10/2002 SKIN CA ON NOSE REMOVED REM LESIO TRUNK,ARM,LEG 3.0-4.0CM 03/27/2009 Exc. back and right arm lesions REMOVAL GALLBLADDER 05/2021 SKIN BIOPSY HX TONSILLECTOMY HX TONSILLECTOMY PRIMARY/SECONDARY <AGE 13 AGE 31 Tonsillectomy TOTAL ABDOMINAL HYSTERECT W/WO RMVL TUBE OVARY 1986 BRO and BSO --> FIBROIDS VAGINAL HYSTERECTOMY Family History FAMILY HISTORY Problem Relation Age of Onset Cancer Mother renal ca Diabetes Mother late in life Coronary Artery Disease Father 69 [place] Lipids Father High Cholesterol Prostate Cancer Brother No Known Problems Brother Coronary Artery Disease Paternal Grandmother No Known Problems Daughter No Known Problems Son No Known Problems Son Breast Cancer Sister fraternal twin sister Patient Allergies ALLERGIES Allergen Reactions Prevacid [Lansopraz* GI Upset Diarrhea Nitroglycerin Other: See Comments Decrease blood pressure Pseudoephedrine Other: See Comments Current Medications Current Outpatient Medications on File Prior to Visit Medication Sig amLODIPine (NORVASC) 2.5 mg tablet Take 1 tablet by mouth two times a day. levothyroxine (SYNTHROID) 100 mcg tablet Take 1.5 tablets on Mon,Wed, Fri and 1 tablet all other days. Oxyquinoline-Na Lauryl Sulfate (TRIMO-GODINEZ JELLY) 0.025-0.01 % gel Use 1 Inch vaginally as directed. For pessary cleaning and re-insertion estradiol (ESTRACE) 0.01 % (0.1 mg/gram) vaginal cream Apply 0.5 g intravaginally twice weekly. ALIGN PROBIOTIC RESISTANCE CAPSULE Take 1 capsule by mouth once daily. clotrimazole-betamethasone (LOTRISONE) cream Apply 1 application to affected area twice daily. aluminum hydrox-magnesium carb (GAVISCON EXTRA STRENGTH) 160-105 mg chew Take 2 tablets by mouth four times daily. simethicone (GAS-X ORAL) Take by mouth once daily as needed. MELATONIN ORAL Take 5 mg by mouth daily at bedtime. calcium carbonate/vitamin d3(CALCIUM 600 WITH VITAMIN D3 600 MG (1,500)-200 UNIT TAB) Take one(1) tablet daily. THERAPEUTIC MULTIVITAMIN TAB Take one(1) tablet daily. No current facility-administered medications on file prior to visit. Social History Social History Tobacco Use Smoking status: Never Smokeless tobacco: Never Vaping Use Vaping status: Never Used Substance Use Topics Alcohol use: Not Currently Drug use: Never Review of Symptoms REVIEW OF SYSTEMS SEE HPI EXAM: BP 126/80 Pulse 81 Wt 75 kg (165 lb 5.5 oz) BMI 25.51 kg/m? General Appearance: Well appearing, alert, in no acute distress, well-hydrated, well nourished. Lungs: Lungs clear to auscultation. No wheezing, rhonchi, rales.. Heart: RRR without murmur, gallop, or rubs. No ectopy. Health Maintenance List DTaP,Tdap,Td Vaccine(2 - Td or Tdap) due on 04/02/2024 RSV Vaccine(1 - 1-dose 75+ series) due on 06/20/2025 Covid-19 Vaccine( season) due on 12/19/2025 Depression Screening due on 12/19/2025 Anxiety Screening due on 12/19/2025 Diabetes Screening due on 12/16/2027 Bone Density Screening Completed Influenza Vaccine Completed Advance Directive Discussion Completed Shingrix Vaccine Completed Pneumococcal Vaccine: 50+ Completed Colorectal Cancer Screening Discontinued Data reviewed Last 5 Encounter BP Readings: Date: BP: 01/02/2025 126/80 12/19/2024 128/74 12/05/2024 136/78 11/14/2024 136/78 10/07/2024 142/80 ASSESSMENT/PLAN: 1. Hypertension, unspecified type - ICD9: 401.9, ICD10: I10 - Controlled - Continue current medications - Recommend home blood pressure monitoring, to bring results to next visit - Encouraged sodium restriction, DASH or Mediterranean diet - Recommend regular aerobic exercise - Discussed need for and benefit of weight loss. BMI 25.51 kg/(m2) - Take BP daily 1 hour after am dose and before bed for 2 weeks and follow up with Dr. Le or Ricardo. Percy Navarro APRN.TELECOMMUNICATIONS LINE MECHANIC CNPN Observed: 01/01/2025 12:00 AM Status: COMPLETED Source: [facility] Telephone ([facility] MONIEDEBBIEOSMIN GuilloryN Loren ([id number]) 1940 F Date Time Provider Department 01/01/25 AKOSUA LEWS During your visit today, we recorded the following information about you: Estefania Anderson LPN 01/01/2025 11:20 AM Signed Pt calls to report that per TE 12/27/24 she was advised to hold second dose of amlodipine 2.5 mg and see how she felt. Pt has been experiencing dizziness/lightheadedness. Pt reports Wednesday afternoon bp was 152/79. Pt reports she felt lightheaded, dizzy, and pulse was increased. Pt reports she did not feel well. Pt reports she then took a second dose of amlodipine 2.5 mg at Akosua Le MD 01/04/2025 2:39 PM Signed OK to go back to twice daily dosing of amlodipine MD Kirt Robles Kathryn, MA 01/04/2025 2:58 PM Signed Pt notified. Francie Wood MA Allergies As of Date: 01/01/2025 Noted Allergy Reaction PREVACID (LANSOPRAZOLE) 03/12/2021 8 - GI Upset Comments: Diarrhea NITROGLYCERIN 03/25/2021 14 - Other: See Comments Comments: Decrease blood pressure PSEUDOEPHEDRINE 06/04/2021 14 - Other: See Comments Date Reviewed: 12/19/2024 Reviewed by: Nelsy De Los Santos MA - Fully Assessed Reason for Visit: Medication Question [7088] Prescriptions as of 01/04/2025 - amLODIPine (NORVASC) 2.5 mg tablet Take 1 tablet by mouth two times a day. - levothyroxine (SYNTHROID) 100 mcg tablet Take 1.5 tablets on Mon,Wed, Fri and 1 tablet all other days. - Oxyquinoline-Na Lauryl Sulfate (TRIMO-GODINEZ JELLY) 0.025-0.01 % gel Use 1 Inch vaginally as directed. For pessary cleaning and re-insertion - estradiol (ESTRACE) 0.01 % (0.1 mg/gram) vaginal cream Apply 0.5 g intravaginally twice weekly. - ALIGN PROBIOTIC RESISTANCE CAPSULE Take 1 capsule by mouth once daily. - clotrimazole-betamethasone (LOTRISONE) cream Apply 1 application to affected area twice daily. - aluminum hydrox-magnesium carb (GAVISCON EXTRA STRENGTH) 160-105 mg chew Take 2 tablets by mouth four times daily. - simethicone (GAS-X ORAL) Take by mouth once daily as needed. - MELATONIN ORAL Take 5 mg by mouth daily at bedtime. - calcium carbonate/vitamin d3(CALCIUM 600 WITH VITAMIN D3 600 MG (1,500)-200 UNIT TAB) Take one(1) tablet daily. - THERAPEUTIC MULTIVITAMIN TAB Take one(1) tablet daily. 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] 03/28/2007 06/05/2009 Sebaceous Cyst [L72.3] 03/27/2009 06/05/2009 Routine gynecological examination [Z01.419] 06/05/2009 Class: Chronic Hyperlipidemia [E78.5] 06/05/2009 Osteopenia [M85.80] 06/05/2009 Back pain [M54.9] 04/23/2011 Neck pain, musculoskeletal [M54.2] 04/23/2011 Arthritis [M19.90] 09/30/2012 Hypertension [I10] 09/13/2012 CKD (chronic kidney disease) stage 3, GFR 30-59*04/05/2018 Microscopic hematuria [R31.29] 11/15/2024 Encounter Status:Closed by FRANCIE WOOD on 01/04/25 MICHAEL Observed: 12/27/2024 12:00 AM Status: COMPLETED Source: [facility] Telephone ([facility]) KLAUDIA BLACKBURN ([id number]) 1940 F Date Time Provider Department 12/27/24 AKOSUA LE [facility] During your visit today, we recorded the following information about you: Amy Howard RN 12/27/2024 10:42 AM Signed Patient calls and states that she continues with her dizziness in the morning. Patient states that after she eats and is up the dizziness starts to get better. Patient reports that she think amlodipine is causing her dizziness. Patient wanting to know if provider thinks this could be the issue? Patient states that she recently changed pharmacies and is wondering if the amlodipine from current pharmacy could be causing issues? Patient was seen by Ricardo on 12/19/2024 for this issue. Please review and advise, EDMAR Sanchez Mark D, MD 12/27/2024 5:55 PM Signed She could try holding the second dose of amlodipine for a few days and see if this helps MD Danny Robles Stephanie, RN 12/28/2024 10:07 AM Signed Patient notified of provider's instructions. Patient verbalizes understanding. Amy Howard RN Allergies As of Date: 12/27/2024 Noted Allergy Reaction PREVACID (LANSOPRAZOLE) 03/12/2021 8 - GI Upset Comments: Diarrhea NITROGLYCERIN 03/25/2021 14 - Other: See Comments Comments: Decrease blood pressure PSEUDOEPHEDRINE 06/04/2021 14 - Other: See Comments Date Reviewed: 12/19/2024 Reviewed by: Nelsy De Los Santos MA - Fully Assessed Reason for Visit: Patient Update [1234] Prescriptions as of 12/28/2024 - amLODIPine (NORVASC) 2.5 mg tablet Take 1 tablet by mouth two times a day. - levothyroxine (SYNTHROID) 100 mcg tablet Take 1.5 tablets on Mon,Wed, Fri and 1 tablet all other days. - Oxyquinoline-Na Lauryl Sulfate (TRIMO-GODINEZ JELLY) 0.025-0.01 % gel Use 1 Inch vaginally as directed. For pessary cleaning and re-insertion - estradiol (ESTRACE) 0.01 % (0.1 mg/gram) vaginal cream Apply 0.5 g intravaginally twice weekly. - ALIGN PROBIOTIC RESISTANCE CAPSULE Take 1 capsule by mouth once daily. - clotrimazole-betamethasone (LOTRISONE) cream Apply 1 application to affected area twice daily. - aluminum hydrox-magnesium carb (GAVISCON EXTRA STRENGTH) 160-105 mg chew Take 2 tablets by mouth four times daily. - simethicone (GAS-X ORAL) Take by mouth once daily as needed. - MELATONIN ORAL Take 5 mg by mouth daily at bedtime. - calcium carbonate/vitamin d3(CALCIUM 600 WITH VITAMIN D3 600 MG (1,500)-200 UNIT TAB) Take one(1) tablet daily. - THERAPEUTIC MULTIVITAMIN TAB Take one(1) tablet daily. 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] 03/28/2007 06/05/2009 Sebaceous Cyst [L72.3] 03/27/2009 06/05/2009 Routine gynecological examination [Z01.419] 06/05/2009 Class: Chronic Hyperlipidemia [E78.5] 06/05/2009 Osteopenia [M85.80] 06/05/2009 Back pain [M54.9] 04/23/2011 Neck pain, musculoskeletal [M54.2] 04/23/2011 Arthritis [M19.90] 09/30/2012 Hypertension [I10] 09/13/2012 CKD (chronic kidney disease) stage 3, GFR 30-59*04/05/2018 Microscopic hematuria [R31.29] 11/15/2024 Encounter Status:Closed by AMY HOWARD on 12/28/24 ELEANOR Observed: 12/19/2024 1:40 PM Status: COMPLETED Source: [facility] Office Visit ([facility] KLAUDIA BLACKBURN ([id number]) 1940 F Date Time Provider Department 12/19/24 1:40 PM RICARDO BRONSON [facility] During your visit today, we recorded the following information about you: Pulse Respiration Blood pressure Weight 64/minute 16/minute 128/74 75.5 kg Ricardo Bronson APRN.[facility] 12/19/2024 1:55 PM Signed Chief Complaint Patient presents with: F/U 6 Month HPI Klaudia Blackburn is a 84 year old female who presents here today for Chronic Medical Conditions. Klaudia is a 84-year-old female with a history of dumping syndrome, HTN, and hypothyroidism, presenting for evaluation of night sweats and dizziness. Klaudia reports persistent night sweats, described as a "cramping" sensation rather than a feeling of being damp or wet. She has tried adjusting her bedding but denies feeling warm during these episodes. She also experiences morning dizziness, which she attributes to her dumping syndrome. The dizziness improves after eating, and she maintains a diet to manage her symptoms, including snacks in the morning and before bed. She denies any weakness, numbness, or tingling. She monitors her blood pressure at home and notes a recent episode where it was 167 mmHg, which decreased to 136 mmHg after two additional readings. She is currently taking amlodipine 2.5 mg BID. She also monitors her glucose levels, which have been normal, and her recent fasting glucose was 93 mg/dL. She is on levothyroxine, and her last TSH was within normal limits. She has a history of arthritis and took naproxen 2-3 years ago, which she believes affected her kidneys. Her recent labs show a BUN on the higher side, but her creatinine is within normal range. Her GFR has been stable between 60-70 mL/min/1.73m? for the past 7 years. Her cholesterol levels have been stable, with total cholesterol between 190-200 mg/dL, triglycerides in the low 100s, HDL between 59-65 mg/dL, and LDL stable over the past 5 years. She is not on cholesterol medication and follows a diet low in red meat and high in lean meats and fish. She has a twin sister with MS but denies any symptoms consistent with MS. She is up to date on her health maintenance, except for a tetanus vaccine not covered by her insurance. Past medical history, appointments, medications, allergies reviewed. EXAM: BP 128/74 (BP Position: Sitting) Pulse 64 Resp 16 Wt 75.5 kg (166 lb 6.4 oz) BMI 25.68 kg/m? General Appearance: Well appearing, alert, in no acute distress, well-hydrated, well nourished.. Neck: Supple, no adenopathy; thyroid symmetric, normal size Lungs: Lungs clear to auscultation. No wheezing, rhonchi, rales.. Heart: RRR without murmur, gallop, or rubs. No ectopy. Latest Ref Rn 12/15/2024 Protein, Total 6.3 - 8.0 g/dL 7.0 Albumin 3.9 - 4.9 g/dL 4.1 Calcium 8.5 - 10.2 mg/dL 9.9 Bilirubin, Total 0.2 - 1.3 mg/dL 0.5 Alkaline Phosphatase 34 - 123 U/L 88 AST 13 - 35 U/L 18 ALT 7 - 38 U/L 14 Glucose 74 - 99 mg/dL 93 BUN 7 - 21 mg/dL 24 (H) Creatinine 0.58 - 0.96 mg/dL 0.94 Sodium 136 - 144 mmol/L 141 Potassium 3.7 - 5.1 mmol/L 4.0 Chloride 98 - 107 mmol/L 104 CO2 22 - 30 mmol/L 26 Anion Gap 8 - 15 mmol/L 11 eGFR >=60 mL/min/1.73m? 60 Cholesterol, Total <200 mg/dL 199 Triglyceride <150 mg/dL 106 HDL Cholesterol >39 mg/dL 59 Non HDL Cholesterol <130 mg/dL 140 (H) Fasting Time hrs 10 VLDL Cholesterol <30 mg/dL 21 TC:HDL Ratio <5.10 3.37 LDL Cholesterol <100 mg/dL 119 (H) LDL:HDL Ratio <2.54 2.02 1. Hypothyroidism, unspecified type (E03.9) TSH levels are within normal range; no adjustments to levothyroxine dosage are necessary. Continue current levothyroxine regimen. 2. Dumping syndrome (K91.1) Symptoms include postprandial improvement in dizziness and lightheadedness. Dietary modifications have been implemented, including increased protein intake and frequent small meals. Continue current dietary management. Monitor symptoms and adjust diet as needed. 3. Hypertension, unspecified type (I10) Blood pressure readings are generally well-controlled on amlodipine 2.5 mg BID. Occasional elevated readings noted, but subsequent measurements show normalization. Continue amlodipine 2.5 mg BID. Monitor blood pressure at home and report any consistently elevated readings. 4. Night sweats (R61) Night sweats are mild and not associated with significant diaphoresis. Recent lab work, including glucose levels, is within normal limits. Monitor symptoms. No changes to current management at this time. 5. Screening for depression (Z13.31) Encounter for screening examination for other mental health and behavioral disorders (Z13.39) RTO in 6 months, sooner if needed. This note was partly generated using [employer] voice recognition dictation and may contain some misspelled or inaccurate words missed on review. The patient consented to the use of [employer] software for draft documentation of the visit consistent with [facility]?s Notice of Privacy Practices. Ricardo Bronson APRN.[facility] 12/19/2024 1:52 PM Signed We discussed your ongoing symptoms and overall health: - Your night sweats do not appear to be severe or concerning at this time. You mentioned they are not drenching, and you do not feel warm or damp. We will continue to monitor this, but no changes to your medications or further testing are needed at this point. Please let me know if your symptoms worsen or change. - Your lightheadedness and dizziness seem to improve after eating, which suggests they may be related to your stomach issues rather than a more serious condition. Your blood sugar levels and recent fasting labs were normal, with a glucose level of 93. Continue your current dietary routine, including small, frequent meals and snacks, as this seems to help manage your symptoms. If your dizziness worsens or becomes persistent, please let me know. - Your blood pressure today was within a good range. You are currently taking Amlodipine 2.5 mg twice daily. You mentioned a recent episode where your blood pressure was elevated to 167 but normalized to 136 after retesting. Please continue to monitor your blood pressure at home, especially if you feel lightheaded or unwell. Let me know if you notice consistently high readings. - Your kidney function remains stable. While your creatinine is within the normal range, your BUN was slightly elevated, likely due to mild dehydration during your fasting labs. Please ensure you are staying well-hydrated, especially before lab tests. Your GFR has been stable in the 60-70 range for many years, and no changes are needed at this time. - Your cholesterol levels remain stable, with no significant changes over the past several years. Your total cholesterol is between 190-200, triglycerides are in the low 100s, HDL is 59-65, and LDL has been consistent. Since you are not on cholesterol medication and your levels are steady, we will recheck your cholesterol in one year. - Your thyroid function is normal, and your TSH levels do not require any adjustments to your levothyroxine dosage. - You mentioned a history of arthritis and prior use of NSAIDs like naproxen, which may have contributed to kidney strain in the past. Please avoid NSAIDs unless absolutely necessary and use alternative pain management options if needed. We discussed your diet and lifestyle: - You are doing well with your diet, focusing on lean proteins like chicken, salmon, and lean pork, and avoiding red meat, fats, and sweets due to your stomach issues. Continue this approach, as it is beneficial for your overall health. We discussed fibromyalgia and related concerns: - Fibromyalgia is a diagnosis of exclusion and does not show up on blood tests. It is often associated with symptoms like widespread pain, pinpoint tenderness, and exacerbations linked to mental health or weather changes. At this time, your symptoms do not strongly suggest fibromyalgia, and no further testing or treatment is needed. Please let me know if you develop new or worsening symptoms. Follow-up, plan: - We will see you back in 6 months to reassess your symptoms and overall health. In the meantime, please monitor your symptoms and notify me if there are any significant changes or concerns. - Your health maintenance is up to date, and no additional vaccines or screenings are needed at this time. Your tetanus vaccine is not covered by your insurance, but everything else is current. Please continue your current medications and lifestyle habits, and let me know if you have any questions or concerns before your next visit. Allergies As of Date: 12/19/2024 Noted Allergy Reaction PREVACID (LANSOPRAZOLE) 03/12/2021 8 - GI Upset Comments: Diarrhea NITROGLYCERIN 03/25/2021 14 - Other: See Comments Comments: Decrease blood pressure PSEUDOEPHEDRINE 06/04/2021 14 - Other: See Comments Date Reviewed: 12/19/2024 Reviewed by: Nelsy De Los Santos MA - Fully Assessed Reason for Visit: F/U 6 Month [444] Primary Visit Diagnosis:Hypothyroidism, unspecified type [E03.9] Other Visit Diagnoses:Dumping syndrome [K91.1] Hypertension, unspecified type [I10] Night sweats [R61] Screening for depression [Z13.31] Encounter for screening examination for other mental health and behavioral disorders [Z13.39] Order(s):DEPRESSION SCREENING [0103321] Order #: [id number]: 1 ANXIETY SCREENING [3217021] Order #: [id number]: 1 ADVANCE CARE PLAN DISCUSSION [0260859] Order #: [id number]: 1 COMPREHENSIVE METABOLIC PANEL [SQCMP] Order #: [id number] FUTURE THYROID STIMULATING HORMONE [SQTSH] Order #: [id number] FUTURE amLODIPine (NORVASC) 2.5 mg tabletTake 1 tablet by mouth two times a day.Disp: 180 tabletRfl: 3 levothyroxine (SYNTHROID) 100 mcg tabletTake 1.5 tablets on Mon,Wed, Fri and 1 tablet all other days.Disp: 135 tabletRfl: 3 Prescriptions as of 12/19/2024 - amLODIPine (NORVASC) 2.5 mg tablet Take 1 tablet by mouth two times a day. - levothyroxine (SYNTHROID) 100 mcg tablet Take 1.5 tablets on Mon,Wed, Fri and 1 tablet all other days. - Oxyquinoline-Na Lauryl Sulfate (TRIMO-GODINEZ JELLY) 0.025-0.01 % gel Use 1 Inch vaginally as directed. For pessary cleaning and re-insertion - estradiol (ESTRACE) 0.01 % (0.1 mg/gram) vaginal cream Apply 0.5 g intravaginally twice weekly. - ALIGN PROBIOTIC RESISTANCE CAPSULE Take 1 capsule by mouth once daily. - clotrimazole-betamethasone (LOTRISONE) cream Apply 1 application to affected area twice daily. - aluminum hydrox-magnesium carb (GAVISCON EXTRA STRENGTH) 160-105 mg chew Take 2 tablets by mouth four times daily. - simethicone (GAS-X ORAL) Take by mouth once daily as needed. - MELATONIN ORAL Take 5 mg by mouth daily at bedtime. - calcium carbonate/vitamin d3(CALCIUM 600 WITH VITAMIN D3 600 MG (1,500)-200 UNIT TAB) Take one(1) tablet daily. - THERAPEUTIC MULTIVITAMIN TAB Take one(1) tablet daily. Problem List As Of Date 12/19/2024 Noted Resolved Extrinsic Asthma, Unspecified [J45.909] 11/10/2005 06/05/2009 Personal history of other malignant neoplasm of*03/29/2006 Hypothyroidism [E03.9] Diverticulosis of colon [K57.30] Constipation [K59.00] Unspecified hemorrhoids without mention of comp* 05/04/2016 Unspecified asthma [J45.909] LIPOMA OTHER SKIN AND SUBCUTANEOUS [D17.39] 03/28/2007 06/05/2009 Sebaceous Cyst [L72.3] 03/27/2009 06/05/2009 Routine gynecological examination [Z01.419] 06/05/2009 Class: Chronic Hyperlipidemia [E78.5] 06/05/2009 Osteopenia [M85.80] 06/05/2009 Back pain [M54.9] 04/23/2011 Neck pain, musculoskeletal [M54.2] 04/23/2011 Arthritis [M19.90] 09/30/2012 Hypertension [I10] 09/13/2012 CKD (chronic kidney disease) stage 3, GFR 30-59*04/05/2018 Microscopic hematuria [R31.29] 11/15/2024 Other instructions from your clinician: We discussed your ongoing symptoms and overall health: - Your night sweats do not appear to be severe or concerning at this time. You mentioned they are not drenching, and you do not feel warm or damp. We will continue to monitor this, but no changes to your medications or further testing are needed at this point. Please let me know if your symptoms worsen or change. - Your lightheadedness and dizziness seem to improve after eating, which suggests they may be related to your stomach issues rather than a more serious condition. Your blood sugar levels and recent fasting labs were normal, with a glucose level of 93. Continue your current dietary routine, including small, frequent meals and snacks, as this seems to help manage your symptoms. If your dizziness worsens or becomes persistent, please let me know. - Your blood pressure today was within a good range. You are currently taking Amlodipine 2.5 mg twice daily. You mentioned a recent episode where your blood pressure was elevated to 167 but normalized to 136 after retesting. Please continue to monitor your blood pressure at home, especially if you feel lightheaded or unwell. Let me know if you notice consistently high readings. - Your kidney function remains stable. While your creatinine is within the normal range, your BUN was slightly elevated, likely due to mild dehydration during your fasting labs. Please ensure you are staying well-hydrated, especially before lab tests. Your GFR has been stable in the 60-70 range for many years, and no changes are needed at this time. - Your cholesterol levels remain stable, with no significant changes over the past several years. Your total cholesterol is between 190-200, triglycerides are in the low 100s, HDL is 59-65, and LDL has been consistent. Since you are not on cholesterol medication and your levels are steady, we will recheck your cholesterol in one year. - Your thyroid function is normal, and your TSH levels do not require any adjustments to your levothyroxine dosage. - You mentioned a history of arthritis and prior use of NSAIDs like naproxen, which may have contributed to kidney strain in the past. Please avoid NSAIDs unless absolutely necessary and use alternative pain management options if needed. We discussed your diet and lifestyle: - You are doing well with your diet, focusing on lean proteins like chicken, salmon, and lean pork, and avoiding red meat, fats, and sweets due to your stomach issues. Continue this approach, as it is beneficial for your overall health. We discussed fibromyalgia and related concerns: - Fibromyalgia is a diagnosis of exclusion and does not show up on blood tests. It is often associated with symptoms like widespread pain, pinpoint tenderness, and exacerbations linked to mental health or weather changes. At this time, your symptoms do not strongly suggest fibromyalgia, and no further testing or treatment is needed. Please let me know if you develop new or worsening symptoms. Follow-up, plan: - We will see you back in 6 months to reassess your symptoms and overall health. In the meantime, please monitor your symptoms and notify me if there are any significant changes or concerns. - Your health maintenance is up to date, and no additional vaccines or screenings are needed at this time. Your tetanus vaccine is not covered by your insurance, but everything else is current. Please continue your current medications and lifestyle habits, and let me know if you have any questions or concerns before your next visit. Prescriptions ordered this encounter Disp Refills Start End AMLODIPINE 2.5 MG TABLET 180 * 3 12/19/2024 Route: ORAL Sig: Take 1 tablet by mouth two times a day. LEVOTHYROXINE 100 MCG TABLET 135 * 3 12/19/2024 Sig: Take 1.5 tablets on Mon,Wed, Fri and 1 tablet all other days. Medications Discontinued During This Encounter Prescriptions - amLODIPine (NORVASC) 2.5 mg tablet (Discontinued) Take 1 tablet by mouth two times a day. - levothyroxine (SYNTHROID) 100 mcg tablet (Discontinued) Take 1.5 tablets on Mon,Wed, Fri and 1 tablet all other days. Level of Service: OFFICE/OUTPATIENT ESTABLISHED MOD MDM 30 MIN [25116] Additional E/M codes: VISIT CPLX INHERENT EANDM ASSOC WITH MED * Disposition: Return in about 6 months (around 06/20/2025) for Medicare/Routine follow up . Follow-up and Disposition History for Encounter Date Provider Department Center 12[facility]19[id number] Encounter Status:Closed by RICARDO BRONSON on 12/19/24 PROGRESS Observed: 12/19/2024 1:40 PM Status: COMPLETED Source: [facility] HNO ID: [id number] Author: RICARDO BRONSON APRN.[employer] Service: ? Author Type: Nurse Practitioner Type: Progress Notes Filed: 12/19/2024 13:55 Note Text: Chief Complaint Patient presents with: F/U 6 Month HPI Klaudia Blackburn is a 84 year old female who presents here today for Chronic Medical Conditions. Klaudia is a 84-year-old female with a history of dumping syndrome, HTN, and hypothyroidism, presenting for evaluation of night sweats and dizziness. Klaudia reports persistent night sweats, described as a "cramping" sensation rather than a feeling of being damp or wet. She has tried adjusting her bedding but denies feeling warm during these episodes. She also experiences morning dizziness, which she attributes to her dumping syndrome. The dizziness improves after eating, and she maintains a diet to manage her symptoms, including snacks in the morning and before bed. She denies any weakness, numbness, or tingling. She monitors her blood pressure at home and notes a recent episode where it was 167 mmHg, which decreased to 136 mmHg after two additional readings. She is currently taking amlodipine 2.5 mg BID. She also monitors her glucose levels, which have been normal, and her recent fasting glucose was 93 mg/dL. She is on levothyroxine, and her last TSH was within normal limits. She has a history of arthritis and took naproxen 2-3 years ago, which she believes affected her kidneys. Her recent labs show a BUN on the higher side, but her creatinine is within normal range. Her GFR has been stable between 60-70 mL/min/1.73m? for the past 7 years. Her cholesterol levels have been stable, with total cholesterol between 190-200 mg/dL, triglycerides in the low 100s, HDL between 59-65 mg/dL, and LDL stable over the past 5 years. She is not on cholesterol medication and follows a diet low in red meat and high in lean meats and fish. She has a twin sister with MS but denies any symptoms consistent with MS. She is up to date on her health maintenance, except for a tetanus vaccine not covered by her insurance. Past medical history, appointments, medications, allergies reviewed. EXAM: BP 128/74 (BP Position: Sitting) Pulse 64 Resp 16 Wt 75.5 kg (166 lb 6.4 oz) BMI 25.68 kg/m? General Appearance: Well appearing, alert, in no acute distress, well-hydrated, well nourished.. Neck: Supple, no adenopathy; thyroid symmetric, normal size Lungs: Lungs clear to auscultation. No wheezing, rhonchi, rales.. Heart: RRR without murmur, gallop, or rubs. No ectopy. Latest Ref Rng 12/15/2024 Protein, Total 6.3 - 8.0 g/dL 7.0 Albumin 3.9 - 4.9 g/dL 4.1 Calcium 8.5 - 10.2 mg/dL 9.9 Bilirubin, Total 0.2 - 1.3 mg/dL 0.5 Alkaline Phosphatase 34 - 123 U/L 88 AST 13 - 35 U/L 18 ALT 7 - 38 U/L 14 Glucose 74 - 99 mg/dL 93 BUN 7 - 21 mg/dL 24 (H) Creatinine 0.58 - 0.96 mg/dL 0.94 Sodium 136 - 144 mmol/L 141 Potassium 3.7 - 5.1 mmol/L 4.0 Chloride 98 - 107 mmol/L 104 CO2 22 - 30 mmol/L 26 Anion Gap 8 - 15 mmol/L 11 eGFR >=60 mL/min/1.73m? 60 Cholesterol, Total <200 mg/dL 199 Triglyceride <150 mg/dL 106 HDL Cholesterol >39 mg/dL 59 Non HDL Cholesterol <130 mg/dL 140 (H) Fasting Time hrs 10 VLDL Cholesterol <30 mg/dL 21 TC:HDL Ratio <5.10 3.37 LDL Cholesterol <100 mg/dL 119 (H) LDL:HDL Ratio <2.54 2.02 1. Hypothyroidism, unspecified type (E03.9) TSH levels are within normal range; no adjustments to levothyroxine dosage are necessary. Continue current levothyroxine regimen. 2. Dumping syndrome (K91.1) Symptoms include postprandial improvement in dizziness and lightheadedness. Dietary modifications have been implemented, including increased protein intake and frequent small meals. Continue current dietary management. Monitor symptoms and adjust diet as needed. 3. Hypertension, unspecified type (I10) Blood pressure readings are generally well-controlled on amlodipine 2.5 mg BID. Occasional elevated readings noted, but subsequent measurements show normalization. Continue amlodipine 2.5 mg BID. Monitor blood pressure at home and report any consistently elevated readings. 4. Night sweats (R61) Night sweats are mild and not associated with significant diaphoresis. Recent lab work, including glucose levels, is within normal limits. Monitor symptoms. No changes to current management at this time. 5. Screening for depression (Z13.31) Encounter for screening examination for other mental health and behavioral disorders (Z13.39) RTO in 6 months, sooner if needed. This note was partly generated using [employer] voice recognition dictation and may contain some misspelled or inaccurate words missed on review. The patient consented to the use of [employer] software for draft documentation of the visit consistent with [facility]?s Notice of Privacy Practices. COMP METAB 2000 PNL SERPL Collected: 7:16 AM Status: F Source: [facility] Order Comment: Specimen Type : BLOOD SPECIMEN Ordering Facility: [facility] Address: [address] [place], [place] [address] [address] TYPE CODE TESTS RESULT OUT OF RANGE REFERENCE UNITS LAB 2885-2(LOINC) Prot SerPl-mCnc 7.0 6.3-8.0 g/dL LAB 1751-7(LOINC) Albumin SerPl-mCnc 4.1 3.9-4.9 g/dL LAB 49266-1(LOINC) Calcium SerPl-mCnc 9.9 8.5-10.2 mg/dL LAB 1975-2(LOINC) Bilirub SerPl-mCnc 0.5 0.2-1.3 mg/dL LAB 6768-6(LOINC) ALP SerPl-cCnc 88 34-123 U/L LAB 1920-8(LOINC) AST SerPl-cCnc 18 13-35 U/L LAB 1742-6(LOINC) ALT SerPl-cCnc 14 7-38 U/L LAB 2345-7(LOINC) Glucose SerPl-mCnc 93 74-99 mg/dL Result Comment: The [place] [employer] (ADA) provides guidance for cutoff values for fasting glucose and random glucose. The ADA defines fasting as no caloric intake for at least 8 hours. Fasting plasma glucose results between 100 to 125 mg/dL indicate increased risk for diabetes (prediabetes). Fasting plasma glucose results greater than or equal to 126 mg/dL meet the criteria for diagnosis of diabetes. In the absence of unequivocal hyperglycemia, results should be confirmed by repeat testing. In a patient with classic symptoms of hyperglycemia or hyperglycemic crisis, random plasma glucose results greater than or equal to 200 mg/dL meet the criteria for diagnosis of diabetes. Reference: Standards of Medical Care in Diabetes 2016, [place] [employer]. Diabetes Care. 2016.39(Suppl 1). LAB 3094-0(LOINC) BUN SerPl-mCnc 24 High 7-21 mg/ dL LAB 2160-0(LOINC) Creat SerPl-mCnc 0.94 0.58-0.96 mg/dL LAB 2951-2(LOINC) Sodium SerPl-sCnc 141 136-144 mmol/L LAB 2823-3(LOINC) Potassium SerPl-sCnc 4.0 3.7-5.1 mmol/L LAB 2075-0(LOINC) Chloride SerPl-sCnc 104 98-107 mmol/L LAB 2028-9(LOINC) CO2 SerPl-sCnc 26 22-30 mmo l/L LAB 31377-3(LOINC) Anion Gap SerPl-sCnc 11 8-15 mmol/L LAB 37196-6(LOINC) Creatinine + eGFR Pnl SerPlBld 60 >=60 mL/min/1 .73m??? Result Comment: Estimated Gl omerular Filtration Rate (eGFR) is calculated using the 2020 CKD-EPI creatinine equation. This equation utilizes serum creatinine, sex, and age as parameters. The creatinine assay has traceable calibration to isotope dilution-mass spectrometry. Refer to KDIGO guidelines for clinical interpretation. In patients with unstable renal function, e.g. those with acute kidney injury, the eGFR may not accurately reflect actual GFR. Performed By: #### 10013-0, 23021-9 #### [facility] CLIA [id number] [address] [place] [address] [place] LIPID 1996 PNL SERPL Collected: 025 7:16 AM Status: F Source: [facility] Order Comment: Specimen Type : BLOOD SPECIMEN Ordering Facility: [facility] Address: [address] [place] [address] TYPE CODE TESTS RESULT OUT OF RANGE REFERENCE UNITS LAB 2093-3(LOINC) Cholest SerPl-mCnc 199 <200 mg/dL Result Comment: <200 mg/dL, Desirable 200-239 mg/dL, Borderline high >239 mg/dL, High LAB 2571-8(LOINC) Trigl SerPl-mCnc 106 <150 mg/dL Result Comment: <150 mg/dL, Normal 150-199 mg/dL, Borderline high 200-499 mg/dL, High >499 mg/dL, Very high LAB 2085-9(LOINC) HDLc SerPl-mCnc 59 >39 mg/dL Result Comment: 40-59 mg/dL, Acceptable >59 mg/dL, High: Negative risk factor for coronary heart disease <40 mg/dL, Low: Positive risk factor for coronary heart disease LAB 05813-0(LOINC) NonHDLc SerPl-mCnc 140 High <130 mg/dL Result Comment: <130 mg/dL, Optimal 130-159 mg/dL, Near optimal/above optimal 160-189 mg/dL, Borderline high 190-219 mg/dL, High >219 mg/dL, Very high Secondary prevention optimal non HDL Cholesterol levels are recommended to be <100 mg/dL LAB FT FASTING TIME 10 hrs LAB 84190-0(LOINC) VLDLc SerPl Calc-mCnc 21 <30 mg/dL LAB 9830-1(LOINC) Cholest/HDLc SerPl 3.37 <5.10 LAB 2089-1(LOINC) LDLc SerPl-mCnc 119 High <100 mg/dL Result Comment: <100 mg/dL, Optimal 100-129 mg/dL, Near optimal/above optimal 130-159 mg/dL, Borderline high 160-189 mg/dL, High >189 mg/dL, Very high Secondary prevention optimal LDL Cholesterol levels are recommended to be < 70 mg/dL LAB 40630-3(LOINC) LDLc/HDLc SerPl 2.02 <2.54 Result Comment: Reference: 1. National Cholesterol Education Program ATP III Guideline At-A-Glance Quick Desk Reference: National Heart, Lung, and Blood [place]. National Institutes of Health. 2001: NIH Publication No. 01-3305. 2. An International Atherosclerosis Society position paper: global recommendations for the management of dyslipidemia: executive summary, Atherosclerosis. 2014: 232(2):410-413. Performed By: #### 08673-6, 19230-6 #### [facility] CLIA [id number] [address] [place] [address] [place] CNPN Observed: 12/14/2024 12:00 AM Status: COMPLETED Source: [facility] Telephone (FAMPWS) ALEXEYDAWITKLAUDIA Loren ([id number]) 1940 F Date Time Provider Department 12/14/24 AKOSUA LE During your visit today, we recorded the following information about you: Tanvi Cameron 12/14/2024 1:20 PM Signed Patient has apt 12/19 with [facility] Requesting labs Please advise Nelsy De Los Santos MA 12/14/2024 3:12 PM Signed See message below, does pt need any additional labs. She current has a CMP and Lipid in that was ordered from Natal[facility] on 06/22. Advise. DANIELA Jade Rilee, MA 12/14/2024 4:46 PM Signed Called pt and notified her that fasting labs have already been ordered. Pt made aware to come in fasting and can complete by walking in. Plans to come in tomorrow. Nelsy De Los Santos MA Allergies As of Date: 12/14/2024 Noted Allergy Reaction PREVACID (LANSOPRAZOLE) 03/12/2021 8 - GI Upset Comments: Diarrhea NITROGLYCERIN 03/25/2021 14 - Other: See Comments Comments: Decrease blood pressure PSEUDOEPHEDRINE 06/04/2021 14 - Other: See Comments Date Reviewed: 12/05/2024 Reviewed by: Zaida Benites LPN - Fully Assessed Reason for Visit: Orders [681] Cmt: labs Prescriptions as of 12/14/2024 - amLODIPine (NORVASC) 2.5 mg tablet Take 1 tablet by mouth two times a day. - levothyroxine (SYNTHROID) 100 mcg tablet Take 1.5 tablets on Mon,Wed, Fri and 1 tablet all other days. - Oxyquinoline-Na Lauryl Sulfate (TRIMO-GODINEZ JELLY) 0.025-0.01 % gel Use 1 Inch vaginally as directed. For pessary cleaning and re-insertion - estradiol (ESTRACE) 0.01 % (0.1 mg/gram) vaginal cream Apply 0.5 g intravaginally twice weekly. - ALIGN PROBIOTIC RESISTANCE CAPSULE Take 1 capsule by mouth once daily. - clotrimazole-betamethasone (LOTRISONE) cream Apply 1 application to affected area twice daily. - aluminum hydrox-magnesium carb (GAVISCON EXTRA STRENGTH) 160-105 mg chew Take 2 tablets by mouth four times daily. - simethicone (GAS-X ORAL) Take by mouth once daily as needed. - MELATONIN ORAL Take 5 mg by mouth daily at bedtime. - calcium carbonate/vitamin d3(CALCIUM 600 WITH VITAMIN D3 600 MG (1,500)-200 UNIT TAB) Take one(1) tablet daily. - THERAPEUTIC MULTIVITAMIN TAB Take one(1) tablet daily. 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] 03/28/2007 06/05/2009 Sebaceous Cyst [L72.3] 03/27/2009 06/05/2009 Routine gynecological examination [Z01.419] 06/05/2009 Class: Chronic Hyperlipidemia [E78.5] 06/05/2009 Osteopenia [M85.80] 06/05/2009 Back pain [M54.9] 04/23/2011 Neck pain, musculoskeletal [M54.2] 04/23/2011 Arthritis [M19.90] 09/30/2012 Hypertension [I10] 09/13/2012 CKD (chronic kidney disease) stage 3, GFR 30-59*04/05/2018 Microscopic hematuria [R31.29] 11/15/2024 Encounter Status:Closed by NELSY DE LOS SANTOS on 12/14/24 PROGRESS Observed: 12/11/2024 9:51 AM Status: COMPLETED Source: [facility] HNO ID: [id number] Author: LITO DRAKE MA Service: ? Author Type: Whey Department Operator Type: Progress Notes Filed: 12/11/2024 10:01 Note Text: POPULATION HEALTH NAVIGATION OUTREACH Action/December 11, 2024 AETNA- HIGH RISK- ATTEMPT 2 Reason for Outreach Care Gap/HCC or Scheduling Wellness Visits Care Gaps due: Medicare Annual Wellness Visit Patient Contacted: Spoke to patient/parent/or legal guardian Patient identified by name and : Yes Care Gap/HCC/Scheduling Wellness actions taken: Patient scheduled/pended orders: Medicare Annual Wellness Visit Navigation Signature: Lito Drake MA December 11, 2024 10:01 AM CNPTOUTREACH Observed: 12/11/2024 12:00 AM Status: COMPLETED Source: [facility] Patient Outreach (NETNAV) KLAUDIA BLACKBURN ([id number]) 1940 F Date Time Provider Department 12/11/24 LITO DRAKE NETMISSYV During your visit today, we recorded the following information about you: Lito Drake MA 12/11/2024 10:01 AM Signed POPULATION HEALTH NAVIGATION OUTREACH Action/December 11, 2024 AETNA- HIGH RISK- ATTEMPT 2 Reason for Outreach Care Gap/HCC or Scheduling Wellness Visits Care Gaps due: Medicare Annual Wellness Visit Patient Contacted: Spoke to patient/parent/or legal guardian Patient identified by name and : Yes Care Gap/HCC/Scheduling Wellness actions taken: Patient scheduled/pended orders: Medicare Annual Wellness Visit Navigation Signature: Lito Drake MA December 11, 2024 10:01 AM Allergies As of Date: 12/11/2024 Noted Allergy Reaction PREVACID (LANSOPRAZOLE) 03/12/2021 8 - GI Upset Comments: Diarrhea NITROGLYCERIN 03/25/2021 14 - Other: See Comments Comments: Decrease blood pressure PSEUDOEPHEDRINE 06/04/2021 14 - Other: See Comments Date Reviewed: 12/05/2024 Reviewed by: Zaida Benites LPN - Fully Assessed Reason for Visit: Population Health Navigation Outreach [3910] Cmt: AETNA- HIGH RISK- ATTEMPT 2 Prescriptions as of 12/11/2024 - amLODIPine (NORVASC) 2.5 mg tablet Take 1 tablet by mouth two times a day. - levothyroxine (SYNTHROID) 100 mcg tablet Take 1.5 tablets on Mon,Wed, Fri and 1 tablet all other days. - Oxyquinoline-Na Lauryl Sulfate (TRIMO-GODINEZ JELLY) 0.025-0.01 % gel Use 1 Inch vaginally as directed. For pessary cleaning and re-insertion - estradiol (ESTRACE) 0.01 % (0.1 mg/gram) vaginal cream Apply 0.5 g intravaginally twice weekly. - ALIGN PROBIOTIC RESISTANCE CAPSULE Take 1 capsule by mouth once daily. - clotrimazole-betamethasone (LOTRISONE) cream Apply 1 application to affected area twice daily. - aluminum hydrox-magnesium carb (GAVISCON EXTRA STRENGTH) 160-105 mg chew Take 2 tablets by mouth four times daily. - simethicone (GAS-X ORAL) Take by mouth once daily as needed. - MELATONIN ORAL Take 5 mg by mouth daily at bedtime. - calcium carbonate/vitamin d3(CALCIUM 600 WITH VITAMIN D3 600 MG (1,500)-200 UNIT TAB) Take one(1) tablet daily. - THERAPEUTIC MULTIVITAMIN TAB Take one(1) tablet daily. 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.39] 03/28/2007 06/05/2009 Sebaceous Cyst [L72.3] 03/27/2009 06/05/2009 Routine gynecological examination [Z01.419] 06/05/2009 Class: Chronic Hyperlipidemia [E78.5] 06/05/2009 Osteopenia [M85.80] 06/05/2009 Back pain [M54.9] 04/23/2011 Neck pain, musculoskeletal [M54.2] 04/23/2011 Arthritis [M19.90] 09/30/2012 Hypertension [I10] 09/13/2012 CKD (chronic kidney disease) stage 3, GFR 30-59*04/05/2018 Microscopic hematuria [R31.29] 11/15/2024 Encounter Status:Closed by LITO DRAKE on 12/11/24 PROGRESS Observed: 12/07/2024 11:09 AM Status: COMPLETED Source: [facility] HNO ID: [id number] Author: LITO DRAKE MA Service: ? Author Type: Whey Department Operator Type: Progress Notes Filed: 12/07/2024 11:11 Note Text: POPULATION HEALTH NAVIGATION OUTREACH Action/December 07, 2024 AETNA- HIGH RISK- ATTEMPT 1 CARE GAP CLOSURE Medicare Wellness exam- 06/20/2025 Outcome/Action KAYE Drake MA Reason for Outreach Care Gap/HCC or Scheduling Wellness Visits Care Gaps due: Medicare Annual Wellness Visit Patient Contacted: Unable or unnecessary to reach patient: Left message GlassBox message sent Navigation Signature: Lito Drake MA December 07, 2024 11:09 AM CNPTOUTREACH Observed: 12/07/2024 12:00 AM Status: COMPLETED Source: [facility] Patient Outreach (NETNAV) KLAUDIA BLACKBURN ([id number]) 1940 F Date Time Provider Department 12/07/24 LITO DRAKE NETNAV During your visit today, we recorded the following information about you: Lito Drake MA 12/07/2024 11:11 AM Signed POPULATION HEALTH NAVIGATION OUTREACH Action/December 07, 2024 AETNA- HIGH RISK- ATTEMPT 1 CARE GAP CLOSURE Medicare Wellness exam- 06/20/2025 Outcome/Action KAYE Drake MA Reason for Outreach Care Gap/HCC or Scheduling Wellness Visits Care Gaps due: Medicare Annual Wellness Visit Patient Contacted: Unable or unnecessary to reach patient: Left message GlassBox message sent Navigation Signature: Lito Drake MA December 07, 2024 11:09 AM Allergies As of Date: 12/07/2024 Noted Allergy Reaction PREVACID (LANSOPRAZOLE) 03/12/2021 8 - GI Upset Comments: Diarrhea NITROGLYCERIN 03/25/2021 14 - Other: See Comments Comments: Decrease blood pressure PSEUDOEPHEDRINE 06/04/2021 14 - Other: See Comments Date Reviewed: 12/05/2024 Reviewed by: Zaida Benites LPN - Fully Assessed Reason for Visit: Population Health Navigation Outreach [3910] Cmt: AETNA- HIGH RISK- ATTEMPT 1 Prescriptions as of 12/07/2024 - amLODIPine (NORVASC) 2.5 mg tablet Take 1 tablet by mouth two times a day. - levothyroxine (SYNTHROID) 100 mcg tablet Take 1.5 tablets on Mon,Wed, Fri and 1 tablet all other days. - Oxyquinoline-Na Lauryl Sulfate (TRIMO-GODINEZ JELLY) 0.025-0.01 % gel Use 1 Inch vaginally as directed. For pessary cleaning and re-insertion - estradiol (ESTRACE) 0.01 % (0.1 mg/gram) vaginal cream Apply 0.5 g intravaginally twice weekly. - ALIGN PROBIOTIC RESISTANCE CAPSULE Take 1 capsule by mouth once daily. - clotrimazole-betamethasone (LOTRISONE) cream Apply 1 application to affected area twice daily. - aluminum hydrox-magnesium carb (GAVISCON EXTRA STRENGTH) 160-105 mg chew Take 2 tablets by mouth four times daily. - simethicone (GAS-X ORAL) Take by mouth once daily as needed. - MELATONIN ORAL Take 5 mg by mouth daily at bedtime. - calcium carbonate/vitamin d3(CALCIUM 600 WITH VITAMIN D3 600 MG (1,500)-200 UNIT TAB) Take one(1) tablet daily. - THERAPEUTIC MULTIVITAMIN TAB Take one(1) tablet daily. 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] 03/28/2007 06/05/2009 Sebaceous Cyst [L72.3] 03/27/2009 06/05/2009 Routine gynecological examination [Z01.419] 06/05/2009 Class: Chronic Hyperlipidemia [E78.5] 06/05/2009 Osteopenia [M85.80] 06/05/2009 Back pain [M54.9] 04/23/2011 Neck pain, musculoskeletal [M54.2] 04/23/2011 Arthritis [M19.90] 09/30/2012 Hypertension [I10] 09/13/2012 CKD (chronic kidney disease) stage 3, GFR 30-59*04/05/2018 Microscopic hematuria [R31.29] 11/15/2024 Encounter Status:Closed by LITO DRAKE on 12/07/24 PROGRESS Observed: 12/05/2024 3:05 PM Status: COMPLETED Source: [facility] ID: [id number] Author: JOSE MIGUEL BECERRA PA-C Service: ? Author Type: Physician Quantitative Analyst Developer Type: Progress Notes Filed: 12/05/2024 19:16 Note Text: [facility] NEW PATIENT CLINIC NOTE SERVICE DATE: 11/02/2023 SERVICE TIME: 3:00 PM NAME: Klaudia Blackburn CHIEF COMPLAINT: Atrophic Vaginitis HISTORY OF PRESENT ILLNESS: Klaudia Blackburn is a 84 year old female with hx of AV and using Topical Estrogen doing very well The patient reports no gross hematuria, but has UA with blood and no microscopic and this concerned her PCP, we dicussed with using pessary and Topical; And urine culture was negative as well Discussed use to topical estrogen she already uses for pessary changes LABS: No results found for: "TESTOST" No results found for: "TESTFREE" No results found for: "PSA" Hematocrit (%) Date Value 11/14/2024 44.8 06/15/2023 46.0 12/15/2022 44.5 01/14/2021 47.1 10/18/2020 46.9 12/01/2011 46.4 No results found for: "PSA" Creatinine Date Value Ref Range Status 11/14/2024 0.91 0.58 - 0.96 mg/dL Final 12/22/2023 0.88 0.58 - 0.96 mg/dL Final 06/15/2023 0.93 0.58 - 0.96 mg/dL Final 06/10/2022 0.91 0.58 - 0.96 mg/dL Final MEDICATIONS: amLODIPine (NORVASC) 2.5 mg tablet Take 1 tablet by mouth two times a day. levothyroxine (SYNTHROID) 100 mcg tablet Take 1.5 tablets on Mon,Wed, Fri and 1 tablet all other days. Oxyquinoline-Na Lauryl Sulfate (TRIMO-GODINEZ JELLY) 0.025-0.01 % gel Use 1 Inch vaginally as directed. For pessary cleaning and re-insertion estradiol (ESTRACE) 0.01 % (0.1 mg/gram) vaginal cream Apply 0.5 g intravaginally twice weekly. ALIGN PROBIOTIC RESISTANCE CAPSULE Take 1 capsule by mouth once daily. clotrimazole-betamethasone (LOTRISONE) cream Apply 1 application to affected area twice daily. aluminum hydrox-magnesium carb (GAVISCON EXTRA STRENGTH) 160-105 mg chew Take 2 tablets by mouth four times daily. simethicone (GAS-X ORAL) Take by mouth once daily as needed. MELATONIN ORAL Take 5 mg by mouth daily at bedtime. calcium carbonate/vitamin d3(CALCIUM 600 WITH VITAMIN D3 600 MG (1,500)-200 UNIT TAB) Take one(1) tablet daily. THERAPEUTIC MULTIVITAMIN TAB Take one(1) tablet daily. PAST MEDICAL HISTORY: PAST MEDICAL HISTORY Diagnosis Date Arthritis Constipation History of transfusion Hyperlipidemia Hypertension 09/2012 Hypothyroidism Microscopic hematuria Osteopenia Other malignant neoplasm of skin, site unspecified 08/09/2002 Non-melanoma skin cancer PAST SURGICAL HISTORY: PAST SURGICAL HISTORY Procedure Laterality Date COLONOSCOPY FLX DX W/COLLJ SPEC WHEN PFRMD 05/28/2004 Colonoscopy COLONOSCOPY FLX DX W/COLLJ SPEC WHEN PFRMD 11/23/2013 Sessile serrated polyp, repeat 2017 COLONOSCOPY FLX DX W/COLLJ SPEC WHEN PFRMD 11/28/2018 Colonoscopy DILATION AND CURETTAGE DXAND/THER NONOBSTETRIC Dilation AND curettage EGD 10/07/2020 ESOPHAGOGASTRODUODENOSCOPY TRANSORAL DIAGNOSTIC 11/23/2013 gastritis PAST SURGICAL HISTORY OF 10/2002 SKIN CA ON NOSE REMOVED REM LESIO TRUNK,ARM,LEG 3.0-4.0CM 03/27/2009 Exc. back and right arm lesions REMOVAL GALLBLADDER 05/2021 SKIN BIOPSY HX TONSILLECTOMY HX TONSILLECTOMY PRIMARY/SECONDARY <AGE 13 AGE 31 Tonsillectomy TOTAL ABDOMINAL HYSTERECT W/WO RMVL TUBE OVARY 1986 BRO and BSO --> FIBROIDS VAGINAL HYSTERECTOMY REVIEW OF SYSTEMS: GENERAL: No fever, chills, weight loss, or fatigue. PHYSICAL EXAMINATION: Blood pressure 136/78, pulse 80, temperature 37.1 ?C (98.7 ?F), temperature source Temporal, resp. rate 14, height 171.5 cm (5' 7.5"), weight 75.8 kg (167 lb), SpO2 97%. GENERAL: WNL nutrition, no deformities, healthy appearing PROBLEM LIST REVIEW: Yes LABS: Results for orders placed or performed in visit on 12/05/24 UA DIP, URINE (POC) Result Value Ref Range GLUCOSE UA (POCT) Negative Negative mg/dL BILIRUBIN UA (POCT) Negative Negative KETONE UA (POCT) Negative Negative mg/dL SPECIFIC GRAVITY UA (POCT) 1.015 1.005 - 1.030 HEMOGLOBIN/BLOOD UA (POCT) Trace-intact (A) Negative PH UA (POCT) 7.5 4.5 - 8.0 PROTEIN UA (POCT) Negative Negative mg/dL UROBILINOGEN UA (POCT) 0.2 Normal E.U./dL NITRITE UA (POCT) Negative Negative LEUKOCYTES UA (POCT) Trace (A) Negative COLOR UA (POCT) Light yellow CLARITY UA (POCT) Cloudy IMPRESSION/PLAN: 1. Atrophic vaginitis - ICD9: 627.3, ICD10: N95.2 (primary diagnosis) 2. Screening for genitourinary condition - ICD9: V81.6, ICD10: Z13.89 > Dicussed Atrophic Vaginitis as a cause of her blood on UA > already has Rx Topical estrogen > 1 year Appt w/ B. [facility], [place], [facility] for annual follow-up and refills. > Discussed her calling office to get urine culture orders placed if she is having UTi symptoms again instead of going to urgent care As long as I have seen her with in the year, understanding no antibiotics treatment until he culture is final or if she has fever then would send her to ER [place], DANNY CNOV Observed: 12/05/2024 2:30 PM Status: COMPLETED Source: [facility] Office Visit (UROLWS) ALEXEYDAWITKLAUDIA Loren ([id number]) 1940 F Date Time Provider Department 12/05/24 2:30 PM JOSE MIGUEL BECERRA UROBALDO During your visit today, we recorded the following information about you: Temperature Pulse Respiration Blood pressure 98.7 degrees 80/minute 14/minute 136/78 Weight Height 75.8 kg 1.715 m Jose Miguel Becerra PA-C 12/05/2024 7:16 PM Signed [facility] NEW PATIENT CLINIC NOTE SERVICE DATE: 11/02/2023 SERVICE TIME: 3:00 PM NAME: Klaudia Blackburn CHIEF COMPLAINT: Atrophic Vaginitis HISTORY OF PRESENT ILLNESS: Klaudia Blackburn is a 84 year old female with hx of AV and using Topical Estrogen doing very well The patient reports no gross hematuria, but has UA with blood and no microscopic and this concerned her PCP, we dicussed with using pessary and Topical; And urine culture was negative as well Discussed use to topical estrogen she already uses for pessary changes LABS: No results found for: "TESTOST" No results found for: "TESTFREE" No results found for: "PSA" Hematocrit (%) Date Value 11/14/2024 44.8 06/15/2023 46.0 12/15/2022 44.5 01/14/2021 47.1 10/18/2020 46.9 12/01/2011 46.4 No results found for: "PSA" Creatinine Date Value Ref Range Status 11/14/2024 0.91 0.58 - 0.96 mg/dL Final 12/22/2023 0.88 0.58 - 0.96 mg/dL Final 06/15/2023 0.93 0.58 - 0.96 mg/dL Final 06/10/2022 0.91 0.58 - 0.96 mg/dL Final MEDICATIONS: amLODIPine (NORVASC) 2.5 mg tablet Take 1 tablet by mouth two times a day. levothyroxine (SYNTHROID) 100 mcg tablet Take 1.5 tablets on Mon,Wed, Fri and 1 tablet all other days. Oxyquinoline-Na Lauryl Sulfate (TRIMO-GODINEZ JELLY) 0.025-0.01 % gel Use 1 Inch vaginally as directed. For pessary cleaning and re-insertion estradiol (ESTRACE) 0.01 % (0.1 mg/gram) vaginal cream Apply 0.5 g intravaginally twice weekly. ALIGN PROBIOTIC RESISTANCE CAPSULE Take 1 capsule by mouth once daily. clotrimazole-betamethasone (LOTRISONE) cream Apply 1 application to affected area twice daily. aluminum hydrox-magnesium carb (GAVISCON EXTRA STRENGTH) 160-105 mg chew Take 2 tablets by mouth four times daily. simethicone (GAS-X ORAL) Take by mouth once daily as needed. MELATONIN ORAL Take 5 mg by mouth daily at bedtime. calcium carbonate/vitamin d3(CALCIUM 600 WITH VITAMIN D3 600 MG (1,500)-200 UNIT TAB) Take one(1) tablet daily. THERAPEUTIC MULTIVITAMIN TAB Take one(1) tablet daily. PAST MEDICAL HISTORY: PAST MEDICAL HISTORY Diagnosis Date Arthritis Constipation History of transfusion Hyperlipidemia Hypertension 09/2012 Hypothyroidism Microscopic hematuria Osteopenia Other malignant neoplasm of skin, site unspecified 08/09/2002 Non-melanoma skin cancer PAST SURGICAL HISTORY: PAST SURGICAL HISTORY Procedure Laterality Date COLONOSCOPY FLX DX W/COLLJ SPEC WHEN PFRMD 05/28/2004 Colonoscopy COLONOSCOPY FLX DX W/COLLJ SPEC WHEN PFRMD 11/23/2013 Sessile serrated polyp, repeat 2017 COLONOSCOPY FLX DX W/COLLJ SPEC WHEN PFRMD 11/28/2018 Colonoscopy DILATION AND CURETTAGE DXAND/THER NONOBSTETRIC Dilation AND curettage EGD 10/07/2020 ESOPHAGOGASTRODUODENOSCOPY TRANSORAL DIAGNOSTIC 11/23/2013 gastritis PAST SURGICAL HISTORY OF 10/2002 SKIN CA ON NOSE REMOVED REM LESIO TRUNK,ARM,LEG 3.0-4.0CM 03/27/2009 Exc. back and right arm lesions REMOVAL GALLBLADDER 05/2021 SKIN BIOPSY HX TONSILLECTOMY HX TONSILLECTOMY PRIMARY/SECONDARY <AGE 13 AGE 31 Tonsillectomy TOTAL ABDOMINAL HYSTERECT W/WO RMVL TUBE OVARY 1986 BRO and BSO --> FIBROIDS VAGINAL HYSTERECTOMY REVIEW OF SYSTEMS: GENERAL: No fever, chills, weight loss, or fatigue. PHYSICAL EXAMINATION: Blood pressure 136/78, pulse 80, temperature 37.1 ?C (98.7 ?F), temperature source Temporal, resp. rate 14, height 171.5 cm (5' 7.5"), weight 75.8 kg (167 lb), SpO2 97%. GENERAL: WNL nutrition, no deformities, healthy appearing PROBLEM LIST REVIEW: Yes LABS: Results for orders placed or performed in visit on 12/05/24 UA DIP, URINE (POC) Result Value Ref Range GLUCOSE UA (POCT) Negative Negative mg/dL BILIRUBIN UA (POCT) Negative Negative KETONE UA (POCT) Negative Negative mg/dL SPECIFIC GRAVITY UA (POCT) 1.015 1.005 - 1.030 HEMOGLOBIN/BLOOD UA (POCT) Trace-intact (A) Negative PH UA (POCT) 7.5 4.5 - 8.0 PROTEIN UA (POCT) Negative Negative mg/dL UROBILINOGEN UA (POCT) 0.2 Normal E.U./dL NITRITE UA (POCT) Negative Negative LEUKOCYTES UA (POCT) Trace (A) Negative COLOR UA (POCT) Light yellow CLARITY UA (POCT) Cloudy IMPRESSION/PLAN: 1. Atrophic vaginitis - ICD9: 627.3, ICD10: N95.2 (primary diagnosis) 2. Screening for genitourinary condition - ICD9: V81.6, ICD10: Z13.89 > Dicussed Atrophic Vaginitis as a cause of her blood on UA > already has Rx Topical estrogen > 1 year Appt w/ B. CLARENCE Becerra, MT, PAMarleyC for annual follow-up and refills. > Discussed her calling office to get urine culture orders placed if she is having UTi symptoms again instead of going to urgent care As long as I have seen her with in the year, understanding no antibiotics treatment until he culture is final or if she has fever then would send her to ER CLARENCE Leon MT, Jose Miguel Valles PA-C 12/05/2024 3:09 PM Signed > 1 year Appt w/ B. CLARENCE Becerra MT, PA-C for annual follow-up and refills. Referring Provider: RICARDO BRONSON [[id number]] Allergies As of Date: 12/05/2024 Noted Allergy Reaction PREVACID (LANSOPRAZOLE) 03/12/2021 8 - GI Upset Comments: Diarrhea NITROGLYCERIN 03/25/2021 14 - Other: See Comments Comments: Decrease blood pressure PSEUDOEPHEDRINE 06/04/2021 14 - Other: See Comments Date Reviewed: 12/05/2024 Reviewed by: Zaida Benites LPN - Fully Assessed Reason for Visit: Follow Up [171] Primary Visit Diagnosis:Atrophic vaginitis [N95.2] Other Visit Diagnosis:Screening for genitourinary condition [Z13.89] Order(s):CONSULT TO UROLOGY [9041] Order #: [id number]: 1 UA DIP, URINE (POC) [[id number]] Order #: [id number] #:[id number] Prescriptions as of 12/05/2024 - amLODIPine (NORVASC) 2.5 mg tablet Take 1 tablet by mouth two times a day. - levothyroxine (SYNTHROID) 100 mcg tablet Take 1.5 tablets on Mon,Wed, Fri and 1 tablet all other days. - Oxyquinoline-Na Lauryl Sulfate (TRIMO-GODINEZ JELLY) 0.025-0.01 % gel Use 1 Inch vaginally as directed. For pessary cleaning and re-insertion - estradiol (ESTRACE) 0.01 % (0.1 mg/gram) vaginal cream Apply 0.5 g intravaginally twice weekly. - ALIGN PROBIOTIC RESISTANCE CAPSULE Take 1 capsule by mouth once daily. - clotrimazole-betamethasone (LOTRISONE) cream Apply 1 application to affected area twice daily. - aluminum hydrox-magnesium carb (GAVISCON EXTRA STRENGTH) 160-105 mg chew Take 2 tablets by mouth four times daily. - simethicone (GAS-X ORAL) Take by mouth once daily as needed. - MELATONIN ORAL Take 5 mg by mouth daily at bedtime. - calcium carbonate/vitamin d3(CALCIUM 600 WITH VITAMIN D3 600 MG (1,500)-200 UNIT TAB) Take one(1) tablet daily. - THERAPEUTIC MULTIVITAMIN TAB Take one(1) tablet daily. Problem List As Of Date 12/05/2024 Noted Resolved Extrinsic Asthma, Unspecified [J45.909] 11/10/2005 06/05/2009 Personal history of other malignant neoplasm of*03/29/2006 Hypothyroidism [E03.9] Diverticulosis of colon [K57.30] Constipation [K59.00] Unspecified hemorrhoids without mention of comp* 05/04/2016 Unspecified asthma [J45.909] LIPOMA OTHER SKIN AND SUBCUTANEOUS [D17.39] 03/28/2007 06/05/2009 Sebaceous Cyst [L72.3] 03/27/2009 06/05/2009 Routine gynecological examination [Z01.419] 06/05/2009 Class: Chronic Hyperlipidemia [E78.5] 06/05/2009 Osteopenia [M85.80] 06/05/2009 Back pain [M54.9] 04/23/2011 Neck pain, musculoskeletal [M54.2] 04/23/2011 Arthritis [M19.90] 09/30/2012 Hypertension [I10] 09/13/2012 CKD (chronic kidney disease) stage 3, GFR 30-59*04/05/2018 Microscopic hematuria [R31.29] 11/15/2024 Other instructions from your clinician: > 1 year Appt w/ BCLARENCE Barbour, MT, PA-C for annual follow-up and refills. Disposition: Return in about 1 year (around 12/05/2025). Follow-up and Disposition History for Encounter Date Provider Department Center 12/05/2024 [id number] MIGUEL BECERRA [facility] Encounter Status:Closed by JOSE MIGUEL BECERRA on 12/05/24 URINALYSIS COMPLETE PNL UR Collected: 11/14/2024 2:36 PM Status: F Source: [facility] Order Comment: Specimen Type : URINE SPECIMEN Ordering Facility: [facility] Address: [address] [place] [address] TYPE CODE TESTS RESULT OUT OF RANGE REFERENCE UNITS LAB 5778-6(LOINC) Color Ur Yellow Yellow LAB 15893-1(LOINC) Clarity Spec Clear Clear LAB 5792-7(LOINC) Glucose Ur Strip-mCnc Negative Negative LAB 5770-3(LOINC) Bilirub Ur Ql Strip Negative Negative LAB 2514-8(LOINC) Ketones Ur Strip Negative Negative LAB 5811-5(LOINC) Sp Gr Ur Strip 1.014 1.005-1.030 LAB 5794-3(LOINC) Hgb Ur Ql Strip Negative Negative LAB 5803-2(LOINC) pH Ur Strip 7.5 <8.5 LAB 5804-0(LOINC) Prot Ur Strip-mCnc Negative Negative LAB 5818-0(LOINC) Urobilinogen Ur Strip 0.2 EU/dL 0.2-1.0 EU/dL LAB 5802-4(LOINC) Nitrite Ur Ql Strip Negative Negative LAB 5799-2(LOINC) Leukocyte esterase Ur Ql Strip 1+ Abnormal Negative LAB 5821-4(LOINC) WBC #/area UrnS HPF 0-5 /HPF 0-5 /HPF LAB 39730-3(LOINC) RBC #/area UrnS HPF 11-20 /HPF Abnormal 0-2 /HPF LAB 5769-5(LOINC) Bacteria #/area UrnS HPF Negative Negative /HPF LAB 5787-7(LOINC) Epi Cells #/area UrnS HPF None Seen /HPF LAB 5796-8(LOINC) Hyaline Casts #/area UrnS LPF 0 /LPF 0 /LPF Performed By: #### 79559-4 # ### [facility] CLIA [id number] [address] [place] [address] [place] [address] [place] CRP SERPL-MCNC Collected: 11/14/2024 1:28 PM Status: F Source: [facility] Order Comment: Specimen Type : BLOOD SPECIMEN Ordering Facility: [facility] Address: [address] [place] [address] TYPE CODE TESTS RESULT OUT OF RANGE REFERENCE UNITS LAB 1988-01(INC) CRP SerPl-mCnc 0.4 <0.9 mg/dL Performed By: #### 1988-01 ## ## [facility] CLIA [id number] [address] [place] [address] [place] COMP METAB 2000 PNL SERPL Collected: 1:28 PM Status: F Source: [facility] Order Comment: Specimen Type : BLOOD SPECIMEN Ordering Facility: [facility] Address: [address] [place] [address] TYPE CODE TESTS RESULT OUT OF RANGE REFERENCE UNITS LAB 2885-2(LOINC) Prot SerPl-mCnc 7.2 6.3-8.0 g/dL LAB 1751-7(LOINC) Albumin SerPl-mCnc 4.1 3.9-4.9 g/dL LAB 01958-1(LOINC) Calcium SerPl-mCnc 9.4 8.5-10.2 mg/dL LAB 1975-2(LOINC) Bilirub SerPl-mCnc 0.3 0.2-1.3 mg/dL LAB 6768-6(LOINC) ALP SerPl-cCnc 100 34-123 U/L LAB 02263-7(LOINC) AST SerPl w P-5'-P-cCnc 18 13-35 U/L LAB 1743-4(LOINC) ALT SerPl w P-5'-P-cCnc 17 7-38 U/L LAB 2345-7(LOINC) Glucose SerPl-mCnc 96 74-99 mg/dL Result Comment: The [place] Diabetes Association (ADA) provides guidance for cutoff values for fasting glucose and random glucose. The ADA defines fasting as no caloric intake for at least 8 hours. Fasting plasma glucose results between 100 to 125 mg/dL indicate increased risk for diabetes (prediabetes). Fasting plasma glucose results greater than or equal to 126 mg/dL meet the criteria for diagnosis of diabetes. In the absence of unequivocal hyperglycemia, results should be confirmed by repeat testing. In a patient with classic symptoms of hyperglycemia or hyperglycemic crisis, random plasma glucose results greater than or equal to 200 mg/dL meet the criteria for diagnosis of diabetes. Reference: Standards of Medical Care in Diabetes 2016, [place] [employer] Association. Diabetes Care. 2016.39(Suppl 1). LAB 3094-0(LOINC) BUN SerPl-mCnc 26 High 7-21 mg/ dL LAB 2160-0(LOINC) Creat SerPl-mCnc 0.91 0.58-0.96 mg/dL LAB 2951-2(LOINC) Sodium SerPl-sCnc 140 136-144 mmol/L LAB 2823-3(LOINC) Potassium SerPl-sCnc 4.3 3.7-5.1 mmol/L LAB 2075-0(LOINC) Chloride SerPl-sCnc 101 98-107 mmol/L LAB 2028-9(LOINC) CO2 SerPl-sCnc 26 22-30 mmo l/L LAB 1863-0(LOINC) Anion Gap4 SerPl-sCnc 13 8-15 mmol/L LAB 26461-8(LOINC) Creatinine + eGFR Pnl SerPlBld 63 >=60 mL/min/1 .73m??? Result Comment: Estimated Gl omerular Filtration Rate (eGFR) is calculated using the 2020 CKD-EPI creatinine equation. This equation utilizes serum creatinine, sex, and age as parameters. The creatinine assay has traceable calibration to isotope dilution-mass spectrometry. Refer to KDIGO guidelines for clinical interpretation. In patients with unstable renal function, e.g. those with acute kidney injury, the eGFR may not accurately reflect actual GFR. Performed By: #### 3016-3, 3 051-0, 34415-9, 3024-7 #### [email or web address] [facility] CLIA [id number] [address] [place] [address] [place] T3FREE SERPL-MCNC Collected: 11/14/2024 1:28 PM Stat us: F Source: [facility] Order Comment: Specimen Type : BLOOD SPECIMEN Ordering Facility: [facility] Address: [address] [place] [address] TYPE CODE TESTS RESULT OUT OF RANGE REFERENCE UNITS LAB 3051-0(LOINC) T3Free SerPl-mCnc 2.4 2.3-4.1 pg/mL Performed By: #### 3016-3, 3 051-0, 30885-3, 3024-7 #### [facility] CLIA [id number] [address] [place] [address] [place] T4 FREE SERPL-MCNC Collected: 11/14/2024 1:28 PM Sta tus: F Source: [facility] Comment: Specimen Type : BLOOD SPECIMEN Ordering Facility: [facility] Address: [address] [place] [address] TYPE CODE TESTS RESULT OUT OF RANGE REFERENCE UNITS LAB 3024-7(LOINC) T4 Free SerPl-mCnc 1.8 High 0.9-1.7 ng/dL Performed By: #### 3016-3, 3 051-0, 99599-2, 3024-7 #### [facility] CLIA [id number] [address] TSH SERPL-ACNC Collected: 1:28 PM Status: F Source: [facility] Comment: Specimen Type : BLOOD SPECIMEN Ordering Facility: [facility] Address: [address] [place] [address] TYPE CODE TESTS RESULT OUT OF RANGE REFERENCE UNITS LAB 48490-5(LOINC) TSH SerPl DL<=0.005 mIU/L-aCnc 2.150 0.270-4.200 mIU/L Performed By: #### 3016-3, 3 051-0, 23893-3, 3024-7 #### [facility] CLIA [id number] [address] CBC W AUTO DIFF BLD Collected: 11/14/2024 1:[address] atus: F Source: [facility] Comment: Specimen Type : BLOOD SPECIMEN Ordering Facility: [facility] Address: [address] [place] [address] TYPE CODE TESTS RESULT OUT OF RANGE REFERENCE UNITS LAB 6690-2(LOINC) WBC # Bld Auto 7.36 3.70-11.00 k/uL LAB 789-8(LOINC) RBC # Bld Auto 4.92 3.90-5.20 m/ uL LAB 718-7(LOINC) Hgb Bld-mCnc 14.6 11.5-15.5 g/dL LAB 4544-3(LOINC) Hct VFr Bld Auto 44.8 36.0-46.0 % LAB 787-2(LOINC) MCV RBC Auto 91.1 80.0-100.0 fL LAB 785-6([facility]) MCH RBC Qn Auto 29.7 26.0-34.0 p g LAB 786-4([facility]) MCHC RBC Auto-mCnc 32.6 30.5-36.0 g/dL LAB 16494-3([facility]) RDW RBC-Rto 13.3 11.5-15.0 % LAB 777-3([facility]) Platelet # Bld Auto 256 150-400 k/uL LAB 26464-3([facility]) PMV Bld Auto 10.5 9.0-12.7 fL LAB 770-8([facility]) Neutrophils/leuk NFr Bld Auto 57.8 % LAB 751-8([facility]) Neutrophils # Bld Auto 4.26 1.45-7.50 k/uL LAB 736-9([facility]) Lymphocytes/leuk NFr Bld Auto 30.2 % LAB 731-0([facility]) Lymphocytes # Bld Auto 2.22 1.00-4.00 k/uL LAB 5905-5([facility]) Monocytes/leuk NFr Bld Auto 9.6 % LAB 742-7([facility]) Monocytes # Bld Auto 0.71 <0.87 k/uL LAB 713-8([facility]) Eosinophil/leuk NFr Bld Auto 1.4 % LAB 711-2([facility]) Eosinophil # Bld Auto 0.10 <0.46 k/uL LAB 706-2([facility]) Basophils/leuk NFr Bld Auto 0.7 % LAB 704-7([facility]) Basophils # Bld Auto 0.05 <0.11 k/uL LAB 44203-2([facility]) Imm Granulocytes/damien k NFr Bld Auto 0.3 % LAB 73129-2([facility]) Imm Granulocytes # Bld Auto <0.03 <0.10 k/uL LAB 66663-3([facility]) nRBC/100 WBC Bld-Rto 0.0 /100 WBC LAB 771-6([facility]) nRBC # Bld Auto <0.01 <0.01 k/u L LAB 11305-8([facility]) Differential method Bld Auto Performed By: #### 91480-5 # ### [facility] CLIA [id number] [address] [place] [address] [place] PROGRESS Observed: 11/14/2024 1:00 PM Status: COMPLETED Source: [facility] HNO ID: [id number] Author: RICARDO BRONSON APRN.TELECOMMUNICATIONS LINE MECHANIC Service: ? Author Type: Nurse Practitioner Type: Progress Notes Filed: 11/14/2024 13:19 Note Text: Chief Complaint Patient presents with: Perspiration: x3-4 mos every night Dizziness: On and off during the day, not every day HPI Klaudia Blackburn is a 84 year old female who presents here today for Above Complaints. Patient is here for her multiple complaints. Patient states that she has been perspiring more often during the nighttime. Duration is 3 to 4 months. Does not wake up drenched but feels damp. Feels clammy at times, thinks its related to sweating. Not enough to change. She is on no medications that cause diaphoresis. Amlodipine has been a long-term medication. Wonders if her glucose is getting on the lower side. Denies any cough. No fever. Patient also has a complaint of lightheadedness. It is intermittent. It is off and on during the day. Not every day. Blood pressure is normal today. Eating will usually improve her symptoms but mentions that last week, it did not help eating. Of note, the patient has a history of dumping syndrome. This requires her to eat frequently. Tries to eat protein predominantly. Past medical history, appointments, medications, allergies reviewed. EXAM: BP 136/78 (BP Position: Sitting) Pulse 65 Resp 16 Wt 74.8 kg (165 lb) SpO2 98% BMI 25.46 kg/m? General Appearance: Well appearing, alert, in no acute distress, well-hydrated, well nourished.. Neck: Supple, no adenopathy; thyroid symmetric, normal size, no bruits. Lungs: Lungs clear to auscultation. No wheezing, rhonchi, rales.. Heart: RRR without murmur, gallop, or rubs. No ectopy. ASSESSMENT/PLAN: 1. Night sweats - ICD9: 780.8, ICD10: R61 (primary diagnosis) -Review medication list, no new medications. She has been on Norvasc for a long time. Discussed that this medication can cause flushing, diaphoresis and some individuals. Less likely at this time. Get blood work, get urine sample. It appears that she potentially might be having some hypoglycemia given that some of her symptoms improved with consumption of food. Unfortunately because she is not a diabetic the glucose meter would not be approved by insurance. I recommended that she can try checking her blood glucose with a ReliOn brand glucose meter from [employer]. I provided her with the name. She will get the labs, check glucose when she has any lightheadedness, night sweats and report back to me in a few weeks via [employer] - COMPLETE BLOOD COUNT AND DIFFERENTIAL - THYROID STIMULATING HORMONE - HIV 1/2 COMBO WITH REFLEX TO DIFFERENTIATION - C-REACTIVE PROTEIN - COMPREHENSIVE METABOLIC PANEL - URINALYSIS (WITH MICROSCOPIC) WITH CULTURE IF INDICATED - T3, FREE - T4 FREE/FREE THYROXINE 2. Dumping syndrome - ICD9: 564.2, ICD10: K91.1 -Continue with frequent feedings of protein based meals. Ricardo Bronson APRN.ZHEN This note was partly generated using [employer] voice recognition dictation and may contain some misspelled or inaccurate words missed on review. CNOV Observed: 11/14/2024 1:00 PM Status: COMPLETED Source: [facility] Office Visit ([facility] KLAUDIA BLACKBURN ([id number]) 1940 F Date Time Provider Department 11/14/24 1:00 PM RICARDO BRONSON During your visit today, we recorded the following information about you: Pulse Respiration Blood pressure Weight 65/minute 16/minute 136/78 74.8 kg Ricardo Bronson APRN.CNP 11/14/2024 1:19 PM Signed Chief Complaint Patient presents with: Perspiration: x3-4 mos every night Dizziness: On and off during the day, not every day HPI Klaudia Blackburn is a 84 year old female who presents here today for Above Complaints. Patient is here for her multiple complaints. Patient states that she has been perspiring more often during the nighttime. Duration is 3 to 4 months. Does not wake up drenched but feels damp. Feels clammy at times, thinks its related to sweating. Not enough to change. She is on no medications that cause diaphoresis. Amlodipine has been a long-term medication. Wonders if her glucose is getting on the lower side. Denies any cough. No fever. Patient also has a complaint of lightheadedness. It is intermittent. It is off and on during the day. Not every day. Blood pressure is normal today. Eating will usually improve her symptoms but mentions that last week, it did not help eating. Of note, the patient has a history of dumping syndrome. This requires her to eat frequently. Tries to eat protein predominantly. Past medical history, appointments, medications, allergies reviewed. EXAM: BP 136/78 (BP Position: Sitting) Pulse 65 Resp 16 Wt 74.8 kg (165 lb) SpO2 98% BMI 25.46 kg/m? General Appearance: Well appearing, alert, in no acute distress, well-hydrated, well nourished.. Neck: Supple, no adenopathy; thyroid symmetric, normal size, no bruits. Lungs: Lungs clear to auscultation. No wheezing, rhonchi, rales.. Heart: RRR without murmur, gallop, or rubs. No ectopy. ASSESSMENT/PLAN: 1. Night sweats - ICD9: 780.8, ICD10: R61 (primary diagnosis) -Review medication list, no new medications. She has been on Norvasc for a long time. Discussed that this medication can cause flushing, diaphoresis and some individuals. Less likely at this time. Get blood work, get urine sample. It appears that she potentially might be having some hypoglycemia given that some of her symptoms improved with consumption of food. Unfortunately because she is not a diabetic the glucose meter would not be approved by insurance. I recommended that she can try checking her blood glucose with a [employer] brand glucose meter from [employer]. I provided her with the name. She will get the labs, check glucose when she has any lightheadedness, night sweats and report back to me in a few weeks via MyChart - COMPLETE BLOOD COUNT AND DIFFERENTIAL - THYROID STIMULATING HORMONE - HIV 1/2 COMBO WITH REFLEX TO DIFFERENTIATION - C-REACTIVE PROTEIN - COMPREHENSIVE METABOLIC PANEL - URINALYSIS (WITH MICROSCOPIC) WITH CULTURE IF INDICATED - T3, FREE - T4 FREE/FREE THYROXINE 2. Dumping syndrome - ICD9: 564.2, ICD10: K91.1 -Continue with frequent feedings of protein based meals. Ricardo Bronson APRN.CNP This note was partly generated using [employer] voice recognition dictation and may contain some misspelled or inaccurate words missed on review. Ricardo Bronson APRN.CNP 11/14/2024 1:15 PM Signed Get labs, give urine sample at lab Check blood glucose at home when feeling this way. [employer]: Over the counter [employer] Blood Glucose Meter. 3. Mychart me in 1-2 weeks when you get some glucose readings during episodes. Ricardo Bronson APRN.CNP Allergies As of Date: 11/14/2024 Noted Allergy Reaction PREVACID (LANSOPRAZOLE) 03/12/2021 8 - GI Upset Comments: Diarrhea NITROGLYCERIN 03/25/2021 14 - Other: See Comments Comments: Decrease blood pressure PSEUDOEPHEDRINE 06/04/2021 14 - Other: See Comments Date Reviewed: 11/14/2024 Reviewed by: Roxann Mathew LPN - Fully Assessed Reason for Visit: Perspiration [81] Cmt: x3-4 mos every night Dizziness [36] Cmt: On and off during the day, not every day Primary Visit Diagnosis:Night sweats [R61] Other Visit Diagnosis:Dumping syndrome [K91.1] Order(s):COMPLETE BLOOD COUNT AND DIFFERENTIAL [SQCBCDIF] Order #: [id number] FUTURE THYROID STIMULATING HORMONE [SQTSH] Order #: [id number] FUTURE C-REACTIVE PROTEIN [SQCRP] Order #: [id number] FUTURE COMPREHENSIVE METABOLIC PANEL [SQCMP] Order #: [id number] FUTURE URINALYSIS (WITH MICROSCOPIC) WITH CULTURE IF INDICATED [SQUACII] Order #: [id number] FUTURE T3, FREE [SQFREET3] Order #: [id number] FUTURE T4 FREE/FREE THYROXINE [SQFT4] Order #: [id number] FUTURE Prescriptions as of 11/14/2024 - amLODIPine (NORVASC) 2.5 mg tablet Take 1 tablet by mouth two times a day. - levothyroxine (SYNTHROID) 100 mcg tablet Take 1.5 tablets on Mon,Wed, Fri and 1 tablet all other days. - Oxyquinoline-Na Lauryl Sulfate (TRIMO-GODINEZ JELLY) 0.025-0.01 % gel Use 1 Inch vaginally as directed. For pessary cleaning and re-insertion - estradiol (ESTRACE) 0.01 % (0.1 mg/gram) vaginal cream Apply 0.5 g intravaginally twice weekly. - ALIGN PROBIOTIC RESISTANCE CAPSULE Take 1 capsule by mouth once daily. - clotrimazole-betamethasone (LOTRISONE) cream Apply 1 application to affected area twice daily. - aluminum hydrox-magnesium carb (GAVISCON EXTRA STRENGTH) 160-105 mg chew Take 2 tablets by mouth four times daily. - simethicone (GAS-X ORAL) Take by mouth once daily as needed. - MELATONIN ORAL Take 5 mg by mouth daily at bedtime. - calcium carbonate/vitamin d3(CALCIUM 600 WITH VITAMIN D3 600 MG (1,500)-200 UNIT TAB) Take one(1) tablet daily. - THERAPEUTIC MULTIVITAMIN TAB Take one(1) tablet daily. Problem List As Of Date 11/14/2024 Noted Resolved Extrinsic Asthma, Unspecified [J45.909] 11/10/2005 06/05/2009 Personal history of other malignant neoplasm of*03/29/2006 Hypothyroidism [E03.9] Diverticulosis of colon [K57.30] Constipation [K59.00] Unspecified hemorrhoids without mention of comp* 05/04/2016 Unspecified asthma [J45.909] LIPOMA OTHER SKIN AND SUBCUTANEOUS [D17.39] 03/28/2007 06/05/2009 Sebaceous Cyst [L72.3] 03/27/2009 06/05/2009 Routine gynecological examination [Z01.419] 06/05/2009 Class: Chronic Hyperlipidemia [E78.5] 06/05/2009 Osteopenia [M85.80] 06/05/2009 Back pain [M54.9] 04/23/2011 Neck pain, musculoskeletal [M54.2] 04/23/2011 Arthritis [M19.90] 09/30/2012 Hypertension [I10] 09/13/2012 CKD (chronic kidney disease) stage 3, GFR 30-59*04/05/2018 Other instructions from your clinician: Get labs, give urine sample at lab Check blood glucose at home when feeling this way. [employer]: Over the counter [employer] Blood Glucose Meter. 3. Mychart me in 1-2 weeks when you get some glucose readings during episodes. Ricardo Bronson APRN.ZHEN Level of Service: OFFICE/OUTPATIENT ESTABLISHED MOD MDM 30 MIN [87047] Additional E/M codes: VISIT CPLX INHERENT EANDM ASSOC WITH MED * Disposition: Return if symptoms worsen or fail to improve. Follow-up and Disposition History for Encounter Date Provider Department Center [id number]:Closed by RICARDO BRONSON on 11/14/24 MICHAEL Observed: 10/09/2024 12:00 AM Status: COMPLETED Source: [facility] Tele[facility] ([facility]) KLAUDIA BLACKBURN ([id number]) 1940 F Date Time Provider Department 10/09/24 CYN POLK [facility] During your visit today, we recorded the following information about you: Cyn Polk APRN.TELECOMMUNICATIONS LINE MECHANIC 10/09/2024 7:14 AM Signed Patient has no significant bacterial growth in culture. If symptoms persist patient needs to follow-up with primary care. Mahi Ramos MA 10/09/2024 7:31 AM Signed Patient given results and verbalized understanding of instructions given. Mahi Ramos MA Allergies As of Date: 10/09/2024 Noted Allergy Reaction PREVACID (LANSOPRAZOLE) 03/12/2021 8 - GI Upset Comments: Diarrhea NITROGLYCERIN 03/25/2021 14 - Other: See Comments Comments: Decrease blood pressure PSEUDOEPHEDRINE 06/04/2021 14 - Other: See Comments Date Reviewed: 10/07/2024 Reviewed by: Luke Gatica APRN.TELECOMMUNICATIONS LINE MECHANIC - Fully Assessed Reason for Visit: Results [95] Prescriptions as of 10/09/2024 - amLODIPine (NORVASC) 2.5 mg tablet Take 1 tablet by mouth two times a day. - levothyroxine (SYNTHROID) 100 mcg tablet Take 1.5 tablets on Mon,Wed, Fri and 1 tablet all other days. - Oxyquinoline-Na Lauryl Sulfate (TRIMO-GODINEZ JELLY) 0.025-0.01 % gel Use 1 Inch vaginally as directed. For pessary cleaning and re-insertion - estradiol (ESTRACE) 0.01 % (0.1 mg/gram) vaginal cream Apply 0.5 g intravaginally twice weekly. - ALIGN PROBIOTIC RESISTANCE CAPSULE Take 1 capsule by mouth once daily. - clotrimazole-betamethasone (LOTRISONE) cream Apply 1 application to affected area twice daily. - aluminum hydrox-magnesium carb (GAVISCON EXTRA STRENGTH) 160-105 mg chew Take 2 tablets by mouth four times daily. - simethicone (GAS-X ORAL) Take by mouth once daily as needed. - MELATONIN ORAL Take 5 mg by mouth daily at bedtime. - calcium carbonate/vitamin d3(CALCIUM 600 WITH VITAMIN D3 600 MG (1,500)-200 UNIT TAB) Take one(1) tablet daily. - THERAPEUTIC MULTIVITAMIN TAB Take one(1) tablet daily. Problem List As Of Date 10/09/2024 Noted Resolved Extrinsic Asthma, Unspecified [J45.909] 11/10/2005 06/05/2009 Personal history of other malignant neoplasm of*03/29/2006 Hypothyroidism [E03.9] Diverticulosis of colon [K57.30] Constipation [K59.00] Unspecified hemorrhoids without mention of comp* 05/04/2016 Unspecified asthma [J45.909] LIPOMA OTHER SKIN AND SUBCUTANEOUS [D17.39] 03/28/2007 06/05/2009 Sebaceous Cyst [L72.3] 03/27/2009 06/05/2009 Routine gynecological examination [Z01.419] 06/05/2009 Class: Chronic Hyperlipidemia [E78.5] 06/05/2009 Osteopenia [M85.80] 06/05/2009 Back pain [M54.9] 04/23/2011 Neck pain, musculoskeletal [M54.2] 04/23/2011 Arthritis [M19.90] 09/30/2012 Hypertension [I10] 09/13/2012 CKD (chronic kidney disease) stage 3, GFR 30-59*04/05/2018 Encounter Status:Closed by MAHI RAMOS on 10/09/24 BACTERIA UR CULT Observed: 10/07/2024 1:58 PM Status: F Source: [facility] ORGANISM ID: 1 10,000 -<50,000 CFU/ml Normal urogenital yovani Performed By: #### [id number] ### # [facility] CLIA [id number] [address] [place] [address] OF [facility] PROGRESS Observed: 10/07/2024 12:57 PM Status: COMPLETED Source: [facility] HNO ID: [id number] Author: LUKE GATICA APRN.TELECOMMUNICATIONS LINE MECHANIC Service: ? Author Type: Nurse Practitioner Type: Progress Notes Filed: 10/07/2024 13:07 Note Text: Subjective HPI Nontoxic. Female presents urgent care chief plaint possible UTI. Duration of symptom 1 week. Associated symptoms urgency frequency and some dysuria. Has had UTIs in the past. States urine dips have been normal. No bacterial infection. Presents today for evaluation. Denies any nausea vomiting abdominal pain flank pain fever. Past medical history prescription medications allergies reviewed. .Patient presents with: Urinary Frequency: Frequency, urgency and burning x 1 week PAST MEDICAL HISTORY Diagnosis Date Arthritis Constipation History of transfusion Hyperlipidemia Hypertension 09/2012 Hypothyroidism Microscopic hematuria Osteopenia Other malignant neoplasm of skin, site unspecified 08/09/2002 Non-melanoma skin cancer PAST SURGICAL HISTORY Procedure Laterality Date COLONOSCOPY FLX DX W/COLLJ SPEC WHEN PFRMD 05/28/2004 Colonoscopy COLONOSCOPY FLX DX W/COLLJ SPEC WHEN PFRMD 11/23/2013 Sessile serrated polyp, repeat 2017 COLONOSCOPY FLX DX W/COLLJ SPEC WHEN PFRMD 11/28/2018 Colonoscopy DILATION AND CURETTAGE DXAND/THER NONOBSTETRIC Dilation AND curettage EGD 10/07/2020 ESOPHAGOGASTRODUODENOSCOPY TRANSORAL DIAGNOSTIC 11/23/2013 gastritis PAST SURGICAL HISTORY OF 10/2002 SKIN CA ON NOSE REMOVED REM LESIO TRUNK,ARM,LEG 3.0-4.0CM 03/27/2009 Exc. back and right arm lesions REMOVAL GALLBLADDER 05/2021 SKIN BIOPSY HX TONSILLECTOMY HX TONSILLECTOMY PRIMARY/SECONDARY <AGE 13 AGE 31 Tonsillectomy TOTAL ABDOMINAL HYSTERECT W/WO RMVL TUBE OVARY 1986 BRO and BSO --> FIBROIDS VAGINAL HYSTERECTOMY ALLERGIES Prevacid [Lansoprazole], Nitroglycerin, and Pseudoephedrine MEDICATIONS amLODIPine (NORVASC) 2.5 mg tablet Take 1 tablet by mouth two times a day. levothyroxine (SYNTHROID) 100 mcg tablet Take 1.5 tablets on Mon,Wed, Fri and 1 tablet all other days. Oxyquinoline-Na Lauryl Sulfate (TRIMO-GODINEZ JELLY) 0.025-0.01 % gel Use 1 Inch vaginally as directed. For pessary cleaning and re-insertion estradiol (ESTRACE) 0.01 % (0.1 mg/gram) vaginal cream Apply 0.5 g intravaginally twice weekly. ALIGN PROBIOTIC RESISTANCE CAPSULE Take 1 capsule by mouth once daily. clotrimazole-betamethasone (LOTRISONE) cream Apply 1 application to affected area twice daily. aluminum hydrox-magnesium carb (GAVISCON EXTRA STRENGTH) 160-105 mg chew Take 2 tablets by mouth four times daily. simethicone (GAS-X ORAL) Take by mouth once daily as needed. MELATONIN ORAL Take 5 mg by mouth daily at bedtime. calcium carbonate/vitamin d3(CALCIUM 600 WITH VITAMIN D3 600 MG (1,500)-200 UNIT TAB) Take one(1) tablet daily. THERAPEUTIC MULTIVITAMIN TAB Take one(1) tablet daily. cephALEXin (KEFLEX) 500 mg capsule Take 1 capsule by mouth two times a day for 5 days. FAMILY HISTORY Problem Relation Age of Onset Cancer Mother renal ca Diabetes Mother late in life Coronary Artery Disease Father 69 [place] Lipids Father High Cholesterol Prostate Cancer Brother No Known Problems Brother Coronary Artery Disease Paternal Grandmother No Known Problems Daughter No Known Problems Son No Known Problems Son Breast Cancer Sister fraternal twin sister Social History Tobacco Use Smoking status: Never Smokeless tobacco: Never Vaping Use Vaping status: Never Used Substance Use Topics Alcohol use: No Drug use: No BP 142/80 Pulse 68 Temp 37.1 ?C (98.8 ?F) (Tympanic) Resp 18 Wt 77.9 kg (171 lb 11.8 oz) SpO2 99% BMI 26.50 kg/m? Review of Systems Constitutional: Negative for chills, fever and malaise/fatigue. Cardiovascular: Negative for chest pain. Gastrointestinal: Negative for abdominal pain, constipation, diarrhea, nausea and vomiting. Genitourinary: Positive for dysuria, frequency and urgency. Negative for flank pain and hematuria. Musculoskeletal: Negative for myalgias. Objective Physical Exam Vitals and nursing note reviewed. Constitutional: General: She is not in acute distress. Appearance: She is not diaphoretic. HENT: Head: Jaw: No trismus. Right Ear: Hearing normal. No decreased hearing noted. No drainage, swelling or tenderness. Tympanic membrane is not perforated, erythematous or bulging. Left Ear: Hearing normal. No decreased hearing noted. No drainage, swelling or tenderness. Tympanic membrane is not perforated, erythematous or bulging. Mouth/Throat: Pharynx: Uvula midline. No uvula swelling. Tonsils: No tonsillar abscesses. Cardiovascular: Rate and Rhythm: Normal rate and regular rhythm. Pulses: Normal pulses. Pulmonary: Effort: Pulmonary effort is normal. No respiratory distress. Breath sounds: Normal breath sounds. Abdominal: General: Bowel sounds are normal. There is no distension. Palpations: Abdomen is soft. Abdomen is not rigid. Tenderness: There is no abdominal tenderness. There is no right CVA tenderness, left CVA tenderness, guarding or rebound. Negative signs include Keating's sign and McBurney's sign. Musculoskeletal: General: No tenderness. Lymphadenopathy: Head: Right side of head: No submental, submandibular, tonsillar, preauricular, posterior auricular or occipital adenopathy. Left side of head: No submental, submandibular, tonsillar, preauricular, posterior auricular or occipital adenopathy. Cervical: Right cervical: No superficial or posterior cervical adenopathy. Left cervical: No superficial or posterior cervical adenopathy. Skin: General: Skin is warm and dry. Findings: No rash. Neurological: Mental Status: She is alert and oriented to person, place, and time. ASSESSMENT/PLAN: 1. Urinary frequency - ICD9: 788.41, ICD10: R35.0 - UA DIP, URINE (POC) - BACTERIAL CULTURE, URINE Urine dip normal other than trace blood. Previous urine cultures were negative. No antibiotics at today's visit. Will treat according to culture results. Encourage follow-up with urology or PCP repeat dip. Patient was educated on supportive therapies. Patient will follow up with primary care provider 2 to 3 days. Patient was instructed to immediately proceed to emergency room for any new, worsening, or symptoms lasting longer than anticipated. The patient's clinical presentation is otherwise unremarkable at this time. Based on exam and clinical finding, the patient is stable for discharge. Plan of care was discussed with patient. Patient verbalizes understanding and agrees to plan of care. This note was generated using [employer] software. It may contain errors in wording, punctuation, or spelling. Luke Gatica APRN.ZHEN CNOV Observed: 10/07/2024 12:30 PM Status: COMPLETED Source: [facility] Office Visit (WSTR) KLAUDIA BLACKBURN ([id number]) 1940 F Date Time Provider Department 10/07/24 12:30 PM [facility] During your visit today, we recorded the following information about you: Temperature Pulse Respiration Blood pressure 98.8 degrees 68/minute 18/minute 142/80 Weight 77.9 kg Luke Gatica APRN.CNP 10/07/2024 1:07 PM Signed Subjective HPI Nontoxic. Female presents urgent care chief plaint possible UTI. Duration of symptom 1 week. Associated symptoms urgency frequency and some dysuria. Has had UTIs in the past. States urine dips have been normal. No bacterial infection. Presents today for evaluation. Denies any nausea vomiting abdominal pain flank pain fever. Past medical history prescription medications allergies reviewed. .Patient presents with: Urinary Frequency: Frequency, urgency and burning x 1 week PAST MEDICAL HISTORY Diagnosis Date Arthritis Constipation History of transfusion Hyperlipidemia Hypertension 09/2012 Hypothyroidism Microscopic hematuria Osteopenia Other malignant neoplasm of skin, site unspecified 08/09/2002 Non-melanoma skin cancer PAST SURGICAL HISTORY Procedure Laterality Date COLONOSCOPY FLX DX W/COLLJ SPEC WHEN PFRMD 05/28/2004 Colonoscopy COLONOSCOPY FLX DX W/COLLJ SPEC WHEN PFRMD 11/23/2013 Sessile serrated polyp, repeat 2017 COLONOSCOPY FLX DX W/COLLJ SPEC WHEN PFRMD 11/28/2018 Colonoscopy DILATION AND CURETTAGE DXAND/THER NONOBSTETRIC Dilation AND curettage EGD 10/07/2020 ESOPHAGOGASTRODUODENOSCOPY TRANSORAL DIAGNOSTIC 11/23/2013 gastritis PAST SURGICAL HISTORY OF 10/2002 SKIN CA ON NOSE REMOVED REM LESIO TRUNK,ARM,LEG 3.0-4.0CM 03/27/2009 Exc. back and right arm lesions REMOVAL GALLBLADDER 05/2021 SKIN BIOPSY HX TONSILLECTOMY HX TONSILLECTOMY PRIMARY/SECONDARY <AGE 13 AGE 31 Tonsillectomy TOTAL ABDOMINAL HYSTERECT W/WO RMVL TUBE OVARY 1986 BRO and BSO --> FIBROIDS VAGINAL HYSTERECTOMY ALLERGIES Prevacid [Lansoprazole], Nitroglycerin, and Pseudoephedrine MEDICATIONS amLODIPine (NORVASC) 2.5 mg tablet Take 1 tablet by mouth two times a day. levothyroxine (SYNTHROID) 100 mcg tablet Take 1.5 tablets on Mon,Wed, Fri and 1 tablet all other days. Oxyquinoline-Na Lauryl Sulfate (TRIMO-GODINEZ JELLY) 0.025-0.01 % gel Use 1 Inch vaginally as directed. For pessary cleaning and re-insertion estradiol (ESTRACE) 0.01 % (0.1 mg/gram) vaginal cream Apply 0.5 g intravaginally twice weekly. ALIGN PROBIOTIC RESISTANCE CAPSULE Take 1 capsule by mouth once daily. clotrimazole-betamethasone (LOTRISONE) cream Apply 1 application to affected area twice daily. aluminum hydrox-magnesium carb (GAVISCON EXTRA STRENGTH) 160-105 mg chew Take 2 tablets by mouth four times daily. simethicone (GAS-X ORAL) Take by mouth once daily as needed. MELATONIN ORAL Take 5 mg by mouth daily at bedtime. calcium carbonate/vitamin d3(CALCIUM 600 WITH VITAMIN D3 600 MG (1,500)-200 UNIT TAB) Take one(1) tablet daily. THERAPEUTIC MULTIVITAMIN TAB Take one(1) tablet daily. cephALEXin (KEFLEX) 500 mg capsule Take 1 capsule by mouth two times a day for 5 days. FAMILY HISTORY Problem Relation Age of Onset Cancer Mother renal ca Diabetes Mother late in life Coronary Artery Disease Father 69 [place] Lipids Father High Cholesterol Prostate Cancer Brother No Known Problems Brother Coronary Artery Disease Paternal Grandmother No Known Problems Daughter No Known Problems Son No Known Problems Son Breast Cancer Sister fraternal twin sister Social History Tobacco Use Smoking status: Never Smokeless tobacco: Never Vaping Use Vaping status: Never Used Substance Use Topics Alcohol use: No Drug use: No BP 142/80 Pulse 68 Temp 37.1 ?C (98.8 ?F) (Tympanic) Resp 18 Wt 77.9 kg (171 lb 11.8 oz) SpO2 99% BMI 26.50 kg/m? Review of Systems Constitutional: Negative for chills, fever and malaise/fatigue. Cardiovascular: Negative for chest pain. Gastrointestinal: Negative for abdominal pain, constipation, diarrhea, nausea and vomiting. Genitourinary: Positive for dysuria, frequency and urgency. Negative for flank pain and hematuria. Musculoskeletal: Negative for myalgias. Objective Physical Exam Vitals and nursing note reviewed. Constitutional: General: She is not in acute distress. Appearance: She is not diaphoretic. HENT: Head: Jaw: No trismus. Right Ear: Hearing normal. No decreased hearing noted. No drainage, swelling or tenderness. Tympanic membrane is not perforated, erythematous or bulging. Left Ear: Hearing normal. No decreased hearing noted. No drainage, swelling or tenderness. Tympanic membrane is not perforated, erythematous or bulging. Mouth/Throat: Pharynx: Uvula midline. No uvula swelling. Tonsils: No tonsillar abscesses. Cardiovascular: Rate and Rhythm: Normal rate and regular rhythm. Pulses: Normal pulses. Pulmonary: Effort: Pulmonary effort is normal. No respiratory distress. Breath sounds: Normal breath sounds. Abdominal: General: Bowel sounds are normal. There is no distension. Palpations: Abdomen is soft. Abdomen is not rigid. Tenderness: There is no abdominal tenderness. There is no right CVA tenderness, left CVA tenderness, guarding or rebound. Negative signs include Keating's sign and McBurney's sign. Musculoskeletal: General: No tenderness. Lymphadenopathy: Head: Right side of head: No submental, submandibular, tonsillar, preauricular, posterior auricular or occipital adenopathy. Left side of head: No submental, submandibular, tonsillar, preauricular, posterior auricular or occipital adenopathy. Cervical: Right cervical: No superficial or posterior cervical adenopathy. Left cervical: No superficial or posterior cervical adenopathy. Skin: General: Skin is warm and dry. Findings: No rash. Neurological: Mental Status: She is alert and oriented to person, place, and time. ASSESSMENT/PLAN: 1. Urinary frequency - ICD9: 788.41, ICD10: R35.0 - UA DIP, URINE (POC) - BACTERIAL CULTURE, URINE Urine dip normal other than trace blood. Previous urine cultures were negative. No antibiotics at today's visit. Will treat according to culture results. Encourage follow-up with urology or PCP repeat dip. Patient was educated on supportive therapies. Patient will follow up with primary care provider 2 to 3 days. Patient was instructed to immediately proceed to emergency room for any new, worsening, or symptoms lasting longer than anticipated. The patient's clinical presentation is otherwise unremarkable at this time. Based on exam and clinical finding, the patient is stable for discharge. Plan of care was discussed with patient. Patient verbalizes understanding and agrees to plan of care. This note was generated using [employer] software. It may contain errors in wording, punctuation, or spelling. Luke Gatica APRN.TELECOMMUNICATIONS LINE MECHANIC Allergies As of Date: 10/07/2024 Noted Allergy Reaction PREVACID (LANSOPRAZOLE) 03/12/2021 8 - GI Upset Comments: Diarrhea NITROGLYCERIN 03/25/2021 14 - Other: See Comments Comments: Decrease blood pressure PSEUDOEPHEDRINE 06/04/2021 14 - Other: See Comments Date Reviewed: 10/07/2024 Reviewed by: Luke Gatica APRN.TELECOMMUNICATIONS LINE MECHANIC - Fully Assessed Reason for Visit: Urinary Frequency [1086] Cmt: Frequency, urgency and burning x 1 week Primary Visit Diagnosis:Urinary frequency [R35.0] Order(s):UA DIP, URINE (POC) [[id number]] Order #: [id number]. #:[id number] BACTERIAL CULTURE, URINE [SQURCUL] Order #: [id number]. #:[id number] Prescriptions as of 10/07/2024 - amLODIPine (NORVASC) 2.5 mg tablet Take 1 tablet by mouth two times a day. - levothyroxine (SYNTHROID) 100 mcg tablet Take 1.5 tablets on Mon,Wed, Fri and 1 tablet all other days. - Oxyquinoline-Na Lauryl Sulfate (TRIMO-GODINEZ JELLY) 0.025-0.01 % gel Use 1 Inch vaginally as directed. For pessary cleaning and re-insertion - estradiol (ESTRACE) 0.01 % (0.1 mg/gram) vaginal cream Apply 0.5 g intravaginally twice weekly. - ALIGN PROBIOTIC RESISTANCE CAPSULE Take 1 capsule by mouth once daily. - clotrimazole-betamethasone (LOTRISONE) cream Apply 1 application to affected area twice daily. - aluminum hydrox-magnesium carb (GAVISCON EXTRA STRENGTH) 160-105 mg chew Take 2 tablets by mouth four times daily. - simethicone (GAS-X ORAL) Take by mouth once daily as needed. - MELATONIN ORAL Take 5 mg by mouth daily at bedtime. - calcium carbonate/vitamin d3(CALCIUM 600 WITH VITAMIN D3 600 MG (1,500)-200 UNIT TAB) Take one(1) tablet daily. - THERAPEUTIC MULTIVITAMIN TAB Take one(1) tablet daily. 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 Disc: Course of therapy completed Medications Discontinued During This Encounter Prescriptions - cephALEXin (KEFLEX) 500 mg capsule (Discontinued) Take 1 capsule by mouth two times a day for 5 days. Level of Service: OFFICE/OUTPATIENT ESTABLISHED LOW [facility] 20 MIN [33622] Encounter Status:Closed by LUKE GATICA on 10/07/24 XR WRIST 3V PA/LAT/OBL LT Observed: 03/2024 8:57 AM Status: F Source: [facility] * * *Final Report* * * DATE OF EXAM: Aug 19 2024 8:57AM WOX [id number] - XR WRIST 3V PA/LAT/OBL LT / PROCEDURE REASON: Left wrist pain * * * * Physician Interpretation * * * * Examination: XR WRIST 3V PA/LAT/OBL LT History: Left wrist pain Sudden onset pain in wrist, no trauma Technique: XR WRIST 3V PA/LAT/OBL LT Comparison: None RESULT: Carpal degenerative changes. Primarily on the radial aspect of the wrist. Mild radiocarpal degenerative change. No fracture or focal bony abnormality. Normal alignment IMPRESSION: DEGENERATIVE CHANGES. NO ACUTE FRACTURE. Language Specialist: PSCB Transcribe Date/Time: Aug 19 2024 9:07A Dictated by : ATIF WINTER MD This examination was interpreted and the report reviewed and electronically signed by: ATIF WINTER MD on Aug 19 2024 9:09AM EST [id number] Observed: 08/19/2024 8:50 AM Status: COMPLETED Source: [facility] HNO ID: [id number] Author: NICOLASA POWERS RT(R) Service: ? Author Type: Locomotive Engineer Diesel Type: Progress Notes Filed: 08/19/2024 08:55 Note Text: Radiology Service Progress Note PATIENT NAME: Klaudia Blackburn DATE OF SERVICE: August 19, 2024 TIME: 8:49 AM PATIENT IDENTITY VERIFICATION COMPLETED USING TWO (2) IDENTIFIERS: Name and Date of confirmed by patient verbally. FALL SCREENING: Has the patient had 2 falls in the last year or 1 fall with injury or currently using an Ambulatory Assistive Device (Walker, Cane, Wheelchair, Crutches, etc.)? No PATIENT GENDER DATA: Female. status: : No status: NO. PATIENT RELEVANT IMPLANT DATA REVIEWED: Yes PATIENT PRESENTS WITH AN IMPLANTABLE OR ATTACHED PLUMBING AND HEATING CONTRACTOR: No RADIOLOGY DEPARTMENT: General X-ray: Exam(s) Completed: Upper Extremity X-Ray(s): Wrist, left PERIPHERAL IV DATA: Not applicable SIGNED BY: RT Humberto(R) August 19, 2024 8:49 AM CNOV Observed: 08/19/2024 8:30 AM Status: COMPLETED Source: [facility] Office Visit (WSTR) KELSEYOSMIN GuilloryN Loren ([id number]) 1940 F Date Time Provider Department 08/19/24 8:30 AM [facility] PRUITT [facility] During your visit today, we recorded the following information about you: Pulse Respiration Blood pressure Weight 67/minute 16/minute 154/85 75.3 kg Clay Pruitt APRN.TELECOMMUNICATIONS LINE MECHANIC 08/19/2024 9:17 AM Signed This note was created using NoteWriter. Subjective Klaudia Blackburn is a 84 year old female. HPI Yesterday pt awoke with pain and swelling in her left hand and wrist. No previous episodes. Review of Systems Objective BP 154/85 Pulse 67 Resp 16 Wt 75.3 kg (166 lb 0.1 oz) SpO2 100% BMI 25.62 kg/m? Physical Exam Vitals and nursing note reviewed. Constitutional: General: She is not in acute distress. Appearance: Normal appearance. She is not ill-appearing. HENT: Head: Normocephalic. Mouth/Throat: Mouth: Mucous membranes are moist. Eyes: Conjunctiva/sclera: Conjunctivae normal. Cardiovascular: Rate and Rhythm: Normal rate and regular rhythm. Pulmonary: Effort: Pulmonary effort is normal. Breath sounds: Normal breath sounds. Musculoskeletal: Cervical back: Normal range of motion. Comments: Mild swelling noted of the left hand and left wrist. Marked tenderness over the ulnar aspect of left wrist. Pain with any range of motion of left wrist. No pain in hand or fingers. Skin: General: Skin is warm and dry. Neurological: General: No focal deficit present. Mental Status: She is alert. Psychiatric: Mood and Affect: Mood normal. Behavior: Behavior normal. Assessment and Plan ASSESSMENT/PLAN: 1. Left wrist pain - ICD9: 719.43, ICD10: M25.532 X-ray of the left wrist shows degenerative changes but otherwise no other acute findings. Patient was given follow-up with orthopedics and 5 days of prednisone. She will use her home Tylenol for pain and will buy an [id number]-[id number] wrist brace for comfort. - XR WRIST GENERAL 3V PA/LAT/OBL LEFT - CONSULT PANEL TO ORTHOPAEDICS - PREDNISONE 50 MG TABLET Clay Pruitt APRN.CNP Referring Provider: SELF [200] Allergies As of Date: 08/19/2024 Noted Allergy Reaction PREVACID (LANSOPRAZOLE) 03/12/2021 8 - GI Upset Comments: Diarrhea NITROGLYCERIN 03/25/2021 14 - Other: See Comments Comments: Decrease blood pressure PSEUDOEPHEDRINE 06/04/2021 14 - Other: See Comments Date Reviewed: 08/19/2024 Reviewed by: Clay Pruitt APRN.CNP - Fully Assessed Reason for Visit: Left wrist swollen with pain [Other] Cmt: X 1 day Primary Visit Diagnosis:Left wrist pain [M25.532] Order(s):XR WRIST GENERAL 3V PA/LAT/OBL LEFT [[id number]] Order #: [id number] FUTURE CONSULT PANEL TO ORTHOPAEDICS [[id number]] Order #: [id number]: 1 FUTURE predniSONE (DELTASONE) 50 mgTake 1 tablet by mouth once daily for 5 days.Disp: 5 tabletRfl: 0 Prescriptions as of 08/19/2024 - predniSONE (DELTASONE) 50 mg Take 1 tablet by mouth once daily for 5 days. - amLODIPine (NORVASC) 2.5 mg tablet Take 1 tablet by mouth two times a day. - levothyroxine (SYNTHROID) 100 mcg tablet Take 1.5 tablets on Mon,Wed, Fri and 1 tablet all other days. - Oxyquinoline-Na Lauryl Sulfate (TRIMO-GODINEZ JELLY) 0.025-0.01 % gel Use 1 Inch vaginally as directed. For pessary cleaning and re-insertion - estradiol (ESTRACE) 0.01 % (0.1 mg/gram) vaginal cream Apply 0.5 g intravaginally twice weekly. - ALIGN PROBIOTIC RESISTANCE CAPSULE Take 1 capsule by mouth once daily. - clotrimazole-betamethasone (LOTRISONE) cream Apply 1 application to affected area twice daily. - aluminum hydrox-magnesium carb (GAVISCON EXTRA STRENGTH) 160-105 mg chew Take 2 tablets by mouth four times daily. - simethicone (GAS-X ORAL) Take by mouth once daily as needed. - MELATONIN ORAL Take 5 mg by mouth daily at bedtime. - calcium carbonate/vitamin d3(CALCIUM 600 WITH VITAMIN D3 600 MG (1,500)-200 UNIT TAB) Take one(1) tablet daily. - THERAPEUTIC MULTIVITAMIN TAB Take one(1) tablet daily. 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 Encounter Status:Closed by CLAY PRUITT on 08/19/24 PROGRESS Observed: 08/19/2024 8:28 AM Status: COMPLETED Source: [facility] ID: [id number] Author: CLAY PRUITT APRN.ZHEN Service: ? Author Type: Nurse Practitioner Type: Progress Notes Filed: 08/19/2024 09:17 Note Text: This note was created using Pin digital. Subjective Klaudia Blackburn is a 84 year old female. HPI Yesterday pt awoke with pain and swelling in her left hand and wrist. No previous episodes. Review of Systems Objective BP 154/85 Pulse 67 Resp 16 Wt 75.3 kg (166 lb 0.1 oz) SpO2 100% BMI 25.62 kg/m? Physical Exam Vitals and nursing note reviewed. Constitutional: General: She is not in acute distress. Appearance: Normal appearance. She is not ill-appearing. HENT: Head: Normocephalic. Mouth/Throat: Mouth: Mucous membranes are moist. Eyes: Conjunctiva/sclera: Conjunctivae normal. Cardiovascular: Rate and Rhythm: Normal rate and regular rhythm. Pulmonary: Effort: Pulmonary effort is normal. Breath sounds: Normal breath sounds. Musculoskeletal: Cervical back: Normal range of motion. Comments: Mild swelling noted of the left hand and left wrist. Marked tenderness over the ulnar aspect of left wrist. Pain with any range of motion of left wrist. No pain in hand or fingers. Skin: General: Skin is warm and dry. Neurological: General: No focal deficit present. Mental Status: She is alert. Psychiatric: Mood and Affect: Mood normal. Behavior: Behavior normal. Assessment and Plan ASSESSMENT/PLAN: 1. Left wrist pain - ICD9: 719.43, ICD10: M25.532 X-ray of the left wrist shows degenerative changes but otherwise no other acute findings. Patient was given follow-up with orthopedics and 5 days of prednisone. She will use her home Tylenol for pain and will buy an [id number]-eetvzlo wrist brace for comfort. - XR WRIST GENERAL 3V PA/LAT/OBL LEFT - CONSULT PANEL TO ORTHOPAEDICS - PREDNISONE 50 MG TABLET Clay Pruitt APRN.TELECOMMUNICATIONS LINE MECHANIC CNOV Observed: 06/22/2024 1:40 PM Status: COMPLETED Source: [facility] Office Visit ([facility] KLAUDIA BLACKBURN ([id number]) 1940 F Date Time Provider Department 06/22/24 1:40 PM [facility] During your visit today, we recorded the following information about you: Pulse Respiration Blood pressure Weight 64/minute 16/minute 128/66 75.2 kg Nataly Perez APRN.CNP 06/22/2024 6:28 PM Signed This is a 83 year old female who presents today with: Patient presents with: Follow Up: 6 month HISTORY OF PRESENT ILLNESS: Klaudia Pimentel Alexey is a 83 year old female. Patient presents with: Follow Up: 6 month 6 month follow up Dumping Syndrome; Following with GI. Taking Gas-X and Gaviscon. Testing completed and showed that she did not have any abnormal digestion of food. Trying to eat high protein during the day. Adding in protein before bed. Symptoms have improved, no light headiness/Dizziness. Will eat snacks regularly. No follow up GERD: Taking Gaviscon 160-105 mg, 2 tablets 4 times daily. Stable with medication. Follows with [facility] for her Pessary maintenance. Thyroid: Taking Synthroid 100 mcg, 1.5 tablets Mon, Wed/Fri and 1 tablet all the other days. TSH completed, WNL. No difficulty swallowing. HTN: Taking Norvasc 2.5 mg 1 pill BID. Not currently checking blood pressure at home. Denies chest pain, palpitations, dizziness, or edema. Mammogram: Had mammogram with sigifredo in May 2024, negative. Vaccines: Would like flu and covid vaccines. PAST MEDICAL HISTORY: PAST MEDICAL HISTORY Diagnosis Date Arthritis Constipation History of transfusion Hyperlipidemia Hypertension 09/2012 Hypothyroidism Microscopic hematuria Osteopenia Other malignant neoplasm of skin, site unspecified 08/09/2002 Non-melanoma skin cancer PAST SURGICAL HISTORY Procedure Laterality Date COLONOSCOPY FLX DX W/COLLJ SPEC WHEN PFRMD 05/28/2004 Colonoscopy COLONOSCOPY FLX DX W/COLLJ SPEC WHEN PFRMD 11/23/2013 Sessile serrated polyp, repeat 2017 COLONOSCOPY FLX DX W/COLLJ SPEC WHEN PFRMD 11/28/2018 Colonoscopy DILATION AND CURETTAGE DXAND/THER NONOBSTETRIC Dilation AND curettage EGD 10/07/2020 ESOPHAGOGASTRODUODENOSCOPY TRANSORAL DIAGNOSTIC 11/23/2013 gastritis PAST SURGICAL HISTORY OF 10/2002 SKIN CA ON NOSE REMOVED REM LESIO TRUNK,ARM,LEG 3.0-4.0CM 03/27/2009 Exc. back and right arm lesions REMOVAL GALLBLADDER 05/2021 SKIN BIOPSY HX TONSILLECTOMY HX TONSILLECTOMY PRIMARY/SECONDARY <AGE 13 AGE 31 Tonsillectomy TOTAL ABDOMINAL HYSTERECT W/WO RMVL TUBE OVARY 1986 BRO and BSO --> FIBROIDS VAGINAL HYSTERECTOMY ALLERGIES Prevacid [Lansoprazole], Nitroglycerin, and Pseudoephedrine MEDICATIONS Current Outpatient Medications Medication Sig Oxyquinoline-Na Lauryl Sulfate (TRIMO-GODINEZ JELLY) 0.025-0.01 % gel Use 1 Inch vaginally as directed. For pessary cleaning and re-insertion estradiol (ESTRACE) 0.01 % (0.1 mg/gram) vaginal cream Apply 0.5 g intravaginally twice weekly. amLODIPine (NORVASC) 2.5 mg tablet Take 1 tablet by mouth two times a day. levothyroxine (SYNTHROID) 100 mcg tablet Take 1.5 tablets on Mon,Wed, Fri and 1 tablet all other days. ALIGN PROBIOTIC RESISTANCE CAPSULE Take 1 capsule by mouth once daily. clotrimazole-betamethasone (LOTRISONE) cream Apply 1 application to affected area twice daily. aluminum hydrox-magnesium carb (GAVISCON EXTRA STRENGTH) 160-105 mg chew Take 2 tablets by mouth four times daily. simethicone (GAS-X ORAL) Take by mouth once daily as needed. MELATONIN ORAL Take 5 mg by mouth daily at bedtime. calcium carbonate/vitamin d3(CALCIUM 600 WITH VITAMIN D3 600 MG (1,500)-200 UNIT TAB) Take one(1) tablet daily. THERAPEUTIC MULTIVITAMIN TAB Take one(1) tablet daily. No current facility-administered medications for this visit. FAMILY HISTORY Problem Relation Age of Onset Cancer Mother renal ca Diabetes Mother late in life Coronary Artery Disease Father 69 [place] Lipids Father High Cholesterol Prostate Cancer Brother No Known Problems Brother Coronary Artery Disease Paternal Grandmother No Known Problems Daughter No Known Problems Son No Known Problems Son Breast Cancer Sister fraternal twin sister Social History Tobacco Use Smoking status: Never Smokeless tobacco: Never Vaping Use Vaping status: Never Used Substance Use Topics Alcohol use: No Drug use: No REVIEW OF SYSTEMS GENERAL: No weight loss, malaise or fevers/chills HEENT: Negative for frequent or significant headaches, No changes in hearing or vision. NECK: Negative for lumps, goiter, pain and significant neck swelling RESPIRATORY: Negative for cough, hemoptysis, wheezing, dyspnea or shortness of breath CARDIOVASCULAR: Negative for chest pain, leg swelling, orthopnea, or palpitations GI: No nausea, vomiting, or diarrhea/constipation. No hematochezia/melena. No heartburn or reflux symptoms. : No history of dysuria, frequency or incontinence MUSCULOSKELETAL: Negative for joint pain or swelling. SKIN: Negative for lesions, rash, and itching ENDOCRINE: Negative for cold or heat intolerance, polyuria, polydipsia and goiter NEURO: No history of headaches, syncope, paralysis, seizures or tremors MOOD: Negative for depression, anxiety, or suicidal ideation. EXAM: BP 128/66 Pulse 64 Resp 16 Wt 75.2 kg (165 lb 12.6 oz) SpO2 99% BMI 25.58 kg/m? PHYSICAL EXAM: General Appearance: Well appearing, alert, in no acute distress, well-hydrated, well nourished. Skin: Skin color, texture, turgor normal, no suspicious rashes or lesions. Head: Normocephalic, no masses, lesions, tenderness or abnormalities. Eyes: Anicteric sclera. Extraocular movements are intact. Lungs: Lungs clear to auscultation. No wheezing, rhonchi, rales. Heart: RRR without murmur, gallop, or rubs. No ectopy. Extremities: No deformities, edema, skin discoloration, clubbing or cyanosis. Good capillary refill. Peripheral Pulses: Normal, Capillary refill <2secs, strong peripheral pulses, Pulses palpable. Neurologic: Gait normal. Sensation grossly intact. ASSESSMENT/PLAN: 1. 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 - Follow up with gastroenterology as needed. 2. GERD without esophagitis - ICD9: 530.81, ICD10: K21.9 - Stable, continue to take current medication. 3. Hypertension, unspecified type - ICD9: 401.9, ICD10: I10 - Controlled - Continue current medications - Recommend home blood pressure monitoring, to bring results to next visit - Encouraged sodium restriction, DASH or Mediterranean diet - Recommend regular aerobic exercise - AMLODIPINE 2.5 MG TABLET 4. Hyperlipidemia, unspecified hyperlipidemia type - ICD9: 272.4, ICD10: E78.5 - Control undetermined, due for labs - Counseled on healthy diet and regular exercise - Get repeat labs in 6 months prior to next OV. - COMPREHENSIVE METABOLIC PANEL - LIPID PANEL BASIC 5. Hypothyroidism, unspecified type - ICD9: 244.9, ICD10: E03.9 - Instructed patient on importance of taking on an empty stomach either first thing in the morning or at bedtime. - LEVOTHYROXINE 100 MCG TABLET 6. Encounter for immunization - ICD9: V03.89, ICD10: Z23 - VIS provided. - INFLUENZA VACCINE, PRSV FREE, AGE 65+ YR, HIGH DOSE, TRIVALENT (FLUZONE HIGH-DOSE) - [employer] COVID-19 VACCINE AGE 12+ YR (COMIRNATY) 6 months or sooner as needed. Discussed treatment plan and patient voices understanding. Patient's questions answered appropriately. Medications and potential side effects were discussed and patient voices understanding. Nataly Perez APRN.TELECOMMUNICATIONS LINE MECHANIC This note was partially generated using [employer] voice recognition system. Note was reviewed for accuracy. There may be minor misspellings or grammar miscues with [employer] voice recognition. Nataly Perez APRN.CNP 06/22/2024 1:55 PM Signed Get repeat fasting labs in 6 months prior to next visit. No food 10-12 hours prior, may have water. Continue to take all medication as prescribed. Mammogram due in 2024. Covid and flu vaccines given Follow up in 6 months or sooner as needed. Allergies As of Date: 06/22/2024 Noted Allergy Reaction PREVACID (LANSOPRAZOLE) 03/12/2021 8 - GI Upset Comments: Diarrhea NITROGLYCERIN 03/25/2021 14 - Other: See Comments Comments: Decrease blood pressure PSEUDOEPHEDRINE 06/04/2021 14 - Other: See Comments Date Reviewed: 06/22/2024 Reviewed by: Tanvi Smith LPN - Fully Assessed Reason for Visit: Follow Up [171] Cmt: 6 month Primary Visit Diagnosis:Dumping syndrome [K91.1] Other Visit Diagnoses:GERD without esophagitis [K21.9] Hypertension, unspecified type [I10] Hyperlipidemia, unspecified hyperlipidemia type [E78.5] Hypothyroidism, unspecified type [E03.9] Encounter for immunization [Z23] Order(s):INFLUENZA VACCINE, PRSV FREE, AGE 65+ YR, HIGH DOSE, TRIVALENT (FLUZONE HIGH-DOSE) [34421ZPR] Order #: [id number] [employer] COVID-19 VACCINE AGE 12+ YR (COMIRNATY) [21037SZJ] Order #: [id number] amLODIPine (NORVASC) 2.5 mg tabletTake 1 tablet by mouth two times a day.Disp: 180 tabletRfl: 3 levothyroxine (SYNTHROID) 100 mcg tabletTake 1.5 tablets on Mon,Wed, Fri and 1 tablet all other days.Disp: 135 tabletRfl: 3 COMPREHENSIVE METABOLIC PANEL [SQCMP] Order #: [id number] FUTURE LIPID PANEL BASIC [SQLIPB] Order #: [id number] FUTURE Prescriptions as of 06/22/2024 - amLODIPine (NORVASC) 2.5 mg tablet Take 1 tablet by mouth two times a day. - levothyroxine (SYNTHROID) 100 mcg tablet Take 1.5 tablets on Mon,Wed, Fri and 1 tablet all other days. - Oxyquinoline-Na Lauryl Sulfate (TRIMO-GODINEZ JELLY) 0.025-0.01 % gel Use 1 Inch vaginally as directed. For pessary cleaning and re-insertion - estradiol (ESTRACE) 0.01 % (0.1 mg/gram) vaginal cream Apply 0.5 g intravaginally twice weekly. - ALIGN PROBIOTIC RESISTANCE CAPSULE Take 1 capsule by mouth once daily. - clotrimazole-betamethasone (LOTRISONE) cream Apply 1 application to affected area twice daily. - aluminum hydrox-magnesium carb (GAVISCON EXTRA STRENGTH) 160-105 mg chew Take 2 tablets by mouth four times daily. - simethicone (GAS-X ORAL) Take by mouth once daily as needed. - MELATONIN ORAL Take 5 mg by mouth daily at bedtime. - calcium carbonate/vitamin d3(CALCIUM 600 WITH VITAMIN D3 600 MG (1,500)-200 UNIT TAB) Take one(1) tablet daily. - THERAPEUTIC MULTIVITAMIN TAB Take one(1) tablet daily. Problem List As Of Date 06/22/2024 Noted Resolved Extrinsic Asthma, Unspecified [J45.909] 11/10/2005 06/05/2009 Personal history of other malignant neoplasm of*03/29/2006 Hypothyroidism [E03.9] Diverticulosis of colon [K57.30] Constipation [K59.00] Unspecified hemorrhoids without mention of comp* 05/04/2016 Unspecified asthma [J45.909] LIPOMA OTHER SKIN AND SUBCUTANEOUS [D17.39] 03/28/2007 06/05/2009 Sebaceous Cyst [L72.3] 03/27/2009 06/05/2009 Routine gynecological examination [Z01.419] 06/05/2009 Class: Chronic Hyperlipidemia [E78.5] 06/05/2009 Osteopenia [M85.80] 06/05/2009 Back pain [M54.9] 04/23/2011 Neck pain, musculoskeletal [M54.2] 04/23/2011 Arthritis [M19.90] 09/30/2012 Hypertension [I10] 09/13/2012 CKD (chronic kidney disease) stage 3, GFR 30-59*04/05/2018 Other instructions from your clinician: Get repeat fasting labs in 6 months prior to next visit. No food 10-12 hours prior, may have water. Continue to take all medication as prescribed. Mammogram due in 2024. Covid and flu vaccines given Follow up in 6 months or sooner as needed. Prescriptions ordered this encounter Disp Refills Start End AMLODIPINE 2.5 MG TABLET 180 * 3 06/22/2024 Route: ORAL Sig: Take 1 tablet by mouth two times a day. LEVOTHYROXINE 100 MCG TABLET 135 * 3 06/22/2024 Sig: Take 1.5 tablets on Mon,Wed, Fri and 1 tablet all other days. Medications Discontinued During This Encounter Prescriptions - amLODIPine (NORVASC) 2.5 mg tablet (Discontinued) Take 1 tablet by mouth two times a day. - levothyroxine (SYNTHROID) 100 mcg tablet (Discontinued) Take 1.5 tablets on Mon,Wed, Fri and 1 tablet all other days. Disposition: Return in about 6 months (around 12/21/2024). Follow-up and Disposition History for Encounter Date Provider Department Center 06/22/2024 [id number], ASHLEY [facility] Encounter Status:Closed by NATALY PEREZ on 06/22/24 PROGRESS Observed: 06/22/2024 1:40 PM Status: COMPLETED [facility] [id number] Author: NATALY PEREZ APRN.TELECOMMUNICATIONS LINE MECHANIC Service: ? Author Type: Nurse Practitioner Type: Progress Notes Filed: 06/22/2024 18:28 Note Text: This is a 83 year old female who presents today with: Patient presents with: Follow Up: 6 month HISTORY OF PRESENT ILLNESS: Klaudia Blackburn is a 83 year old female. Patient presents with: Follow Up: 6 month 6 month follow up Dumping Syndrome; Following with GI. Taking Gas-X and Gaviscon. Testing completed and showed that she did not have any abnormal digestion of food. Trying to eat high protein during the day. Adding in protein before bed. Symptoms have improved, no light headiness/Dizziness. Will eat snacks regularly. No follow up GERD: Taking Gaviscon 160-105 mg, 2 tablets 4 times daily. Stable with medication. Follows with [facility] for her Pessary maintenance. Thyroid: Taking Synthroid 100 mcg, 1.5 tablets Mon, Wed/Fri and 1 tablet all the other days. TSH completed, WNL. No difficulty swallowing. HTN: Taking Norvasc 2.5 mg 1 pill BID. Not currently checking blood pressure at home. Denies chest pain, palpitations, dizziness, or edema. Mammogram: Had mammogram with sigifredo in May 2024, negative. Vaccines: Would like flu and covid vaccines. PAST MEDICAL HISTORY: PAST MEDICAL HISTORY Diagnosis Date Arthritis Constipation History of transfusion Hyperlipidemia Hypertension 09/2012 Hypothyroidism Microscopic hematuria Osteopenia Other malignant neoplasm of skin, site unspecified 08/09/2002 Non-melanoma skin cancer PAST SURGICAL HISTORY Procedure Laterality Date COLONOSCOPY FLX DX W/COLLJ SPEC WHEN PFRMD 05/28/2004 Colonoscopy COLONOSCOPY FLX DX W/COLLJ SPEC WHEN PFRMD 11/23/2013 Sessile serrated polyp, repeat 2017 COLONOSCOPY FLX DX W/COLLJ SPEC WHEN PFRMD 11/28/2018 Colonoscopy DILATION AND CURETTAGE DXAND/THER NONOBSTETRIC Dilation AND curettage EGD 10/07/2020 ESOPHAGOGASTRODUODENOSCOPY TRANSORAL DIAGNOSTIC 11/23/2013 gastritis PAST SURGICAL HISTORY OF 10/2002 SKIN CA ON NOSE REMOVED REM LESIO TRUNK,ARM,LEG 3.0-4.0CM 03/27/2009 Exc. back and right arm lesions REMOVAL GALLBLADDER 05/2021 SKIN BIOPSY HX TONSILLECTOMY HX TONSILLECTOMY PRIMARY/SECONDARY <AGE 13 AGE 31 Tonsillectomy TOTAL ABDOMINAL HYSTERECT W/WO RMVL TUBE OVARY 1986 BRO and BSO --> FIBROIDS VAGINAL HYSTERECTOMY ALLERGIES Prevacid [Lansoprazole], Nitroglycerin, and Pseudoephedrine MEDICATIONS Current Outpatient Medications Medication Sig Oxyquinoline-Na Lauryl Sulfate (TRIMO-GODINEZ JELLY) 0.025-0.01 % gel Use 1 Inch vaginally as directed. For pessary cleaning and re-insertion estradiol (ESTRACE) 0.01 % (0.1 mg/gram) vaginal cream Apply 0.5 g intravaginally twice weekly. amLODIPine (NORVASC) 2.5 mg tablet Take 1 tablet by mouth two times a day. levothyroxine (SYNTHROID) 100 mcg tablet Take 1.5 tablets on Mon,Wed, Fri and 1 tablet all other days. ALIGN PROBIOTIC RESISTANCE CAPSULE Take 1 capsule by mouth once daily. clotrimazole-betamethasone (LOTRISONE) cream Apply 1 application to affected area twice daily. aluminum hydrox-magnesium carb (GAVISCON EXTRA STRENGTH) 160-105 mg chew Take 2 tablets by mouth four times daily. simethicone (GAS-X ORAL) Take by mouth once daily as needed. MELATONIN ORAL Take 5 mg by mouth daily at bedtime. calcium carbonate/vitamin d3(CALCIUM 600 WITH VITAMIN D3 600 MG (1,500)-200 UNIT TAB) Take one(1) tablet daily. THERAPEUTIC MULTIVITAMIN TAB Take one(1) tablet daily. No current facility-administered medications for this visit. FAMILY HISTORY Problem Relation Age of Onset Cancer Mother renal ca Diabetes Mother late in life Coronary Artery Disease Father 69 [place] Lipids Father High Cholesterol Prostate Cancer Brother No Known Problems Brother Coronary Artery Disease Paternal Grandmother No Known Problems Daughter No Known Problems Son No Known Problems Son Breast Cancer Sister fraternal twin sister Social History Tobacco Use Smoking status: Never Smokeless tobacco: Never Vaping Use Vaping status: Never Used Substance Use Topics Alcohol use: No Drug use: No REVIEW OF SYSTEMS GENERAL: No weight loss, malaise or fevers/chills HEENT: Negative for frequent or significant headaches, No changes in hearing or vision. NECK: Negative for lumps, goiter, pain and significant neck swelling RESPIRATORY: Negative for cough, hemoptysis, wheezing, dyspnea or shortness of breath CARDIOVASCULAR: Negative for chest pain, leg swelling, orthopnea, or palpitations GI: No nausea, vomiting, or diarrhea/constipation. No hematochezia/melena. No heartburn or reflux symptoms. : No history of dysuria, frequency or incontinence MUSCULOSKELETAL: Negative for joint pain or swelling. SKIN: Negative for lesions, rash, and itching ENDOCRINE: Negative for cold or heat intolerance, polyuria, polydipsia and goiter NEURO: No history of headaches, syncope, paralysis, seizures or tremors MOOD: Negative for depression, anxiety, or suicidal ideation. EXAM: BP 128/66 Pulse 64 Resp 16 Wt 75.2 kg (165 lb 12.6 oz) SpO2 99% BMI 25.58 kg/m? PHYSICAL EXAM: General Appearance: Well appearing, alert, in no acute distress, well-hydrated, well nourished. Skin: Skin color, texture, turgor normal, no suspicious rashes or lesions. Head: Normocephalic, no masses, lesions, tenderness or abnormalities. Eyes: Anicteric sclera. Extraocular movements are intact. Lungs: Lungs clear to auscultation. No wheezing, rhonchi, rales. Heart: RRR without murmur, gallop, or rubs. No ectopy. Extremities: No deformities, edema, skin discoloration, clubbing or cyanosis. Good capillary refill. Peripheral Pulses: Normal, Capillary refill <2secs, strong peripheral pulses, Pulses palpable. Neurologic: Gait normal. Sensation grossly intact. ASSESSMENT/PLAN: 1. 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 - Follow up with gastroenterology as needed. 2. GERD without esophagitis - ICD9: 530.81, ICD10: K21.9 - Stable, continue to take current medication. 3. Hypertension, unspecified type - ICD9: 401.9, ICD10: I10 - Controlled - Continue current medications - Recommend home blood pressure monitoring, to bring results to next visit - Encouraged sodium restriction, DASH or Mediterranean diet - Recommend regular aerobic exercise - AMLODIPINE 2.5 MG TABLET 4. Hyperlipidemia, unspecified hyperlipidemia type - ICD9: 272.4, ICD10: E78.5 - Control undetermined, due for labs - Counseled on healthy diet and regular exercise - Get repeat labs in 6 months prior to next OV. - COMPREHENSIVE METABOLIC PANEL - LIPID PANEL BASIC 5. Hypothyroidism, unspecified type - ICD9: 244.9, ICD10: E03.9 - Instructed patient on importance of taking on an empty stomach either first thing in the morning or at bedtime. - LEVOTHYROXINE 100 MCG TABLET 6. Encounter for immunization - ICD9: V03.89, ICD10: Z23 - VIS provided. - INFLUENZA VACCINE, PRSV FREE, AGE 65+ YR, HIGH DOSE, TRIVALENT (FLUZONE HIGH-DOSE) - [employer] COVID-19 VACCINE AGE 12+ YR (COMIRNATY) 6 months or sooner as needed. Discussed treatment plan and patient voices understanding. Patient's questions answered appropriately. Medications and potential side effects were discussed and patient voices understanding. Nataly Perez, MOY.TELECOMMUNICATIONS LINE MECHANIC This note was partially generated using [employer] voice recognition system. Note was reviewed for accuracy. There may be minor misspellings or grammar miscues with [employer] voice recognition. TSH SERPL-ACNC Collected: 4 8:55 AM Status: F Source: [facility] Order Comment: Specimen Type : BLOOD SPECIMEN Ordering Facility: [facility] Address: [address] [id number] TYPE CODE TESTS RESULT OUT OF RANGE REFERENCE UNITS LAB 3016-3(LOINC) TSH SerPl-aCnc 1.560 0.270-4.200 mIU/L Performed By: #### 3016-3 ## ## [facility] CLIA [id number] [address] [place] [address] [place] DATE TYPE / CODE NAME / CODE REACTION SEVERITY SOURCE 06/04/2021 DRUG INGREDI/[id number] 3(SNOMED CT) PSEUDOEPHEDRINE OTHER: SEE C [facility] [place] 03/25/2021 DRUG INGREDI/[id number] 3(SNOMED CT) NITROGLYCERIN OTHER: SEE C [facility] 03/12/2021 DRUG INGREDI/[id number] 3(SNOMED CT) LANSOPRAZOLE GI UPSET [facility] ENCOUNTERS ADMIT/DISCHARGE ACCOUNT NUMBER ADMITTING ENCOUNTER CLASS LOC ATION SOURCE 06/11/2025/ 5 [id number] Ambulatory [facility] 06/05/2025/ 5 [id number] Ambulatory [facility]:W[facility] [place] 06/05/2025 [id number] [facility] [id number] [facility] [id number] Ambulatory [facility] HospitalBuild [facility] [id number] Ambulatory [facility] [id number] Ambulatory [facility] HospitalBuild ing:HIPOLITOB [facility] 12/05/2024/ 5 [id number] Ambulatory [facility] HospitalBuild ing:CHOCO [facility] 11/14/2024/ 5 [id number] Ambulatory [facility] HospitalBuild ing:WOLB [facility] 11/14/2024/ 5 [id number] Ambulatory [facility] 5 [id number] Ambulatory [facility] HospitalBuild ing:WOUC [facility] 08/19/2024/ 4 [id number] Ambulatory [facility] HospitalBuild ing:WORG [facility] 08/19/2024/ 4 [id number] Ambulatory [facility] HospitalBuild ing:WOUC [facility] 06/22/2024/ 4 [id number] Ambulatory [facility] HospitalBuild ing:WOFM [facility] 06/21/2024/ 4 [id number] Ambulatory [facility] HospitalBuild ing:WOLB [facility] PAYERS ENCOUNTER GUARANTOR PAYER SUBSCRIBER SOURCE 06/11/2025 Primary Insurance:AETNA MEDICARE PPOPolicy Number: [id number] Date:6097-59-48Bkzh Name:Meri ROONEY: [id number] [place], [place] [address] [place] [address] 06/05/2025 Primary Insurance:AETNA MEDICARE PPOPolicy Number: [id number] Date:0217-47-61Ebie Name:Meri ROONEY: [id number] [place], [place] [address] [place] [address] 06/05/2025 Primary Insurance:AETNA MEDICARE PPOPolicy Number: [id number] Date:0389-14-74Xrpb Name:Meri ROONEY: [id number] [place], [place] [address] [place] [address] 01/16/2025 Primary Insurance:AETNA MEDICARE PPOPolicy Number: [id number] Date:4177-70-43Cvjs Name:Meri ROONEY: [id number] [place], [place] [address] [place] [address] 01/02/2025 Primary Insurance:AETNA MEDICARE PPOPolicy Number: [id number] Date:2368-43-91Xvqd Name:Meri Pimentel WILBERB: [id number] [place] [address] [facility] 12/19/2024 Primary Insurance:AETNA MEDICARE PPOPolicy Number: [id number] Date:5741-23-32Rrwd Name:Meri Pimentel WILBERB: [id number] [place] [address] [facility] 12/15/2024 Primary Insurance:AETNA MEDICARE PPOPolicy Number: [id number] Date:8742-93-30Pbyy Name:Meri Pimentel TORIBIO: [id number] [place], [place] [id number] [place] [address] 12/05/2024 Primary Insurance:AETNA MEDICARE PPOPolicy Number: [id number] Date:2652-32-45Mzeu Name:Meri SOLORIOMeri ROONEY: [id number] [place], [place] [address] [place] [address] 11/14/2024 Primary Insurance:AETNA MEDICARE PPOPolicy Number: [id number] Date:7620-09-66Yvyp Name:Meri Pimentel TORIBIO: [id number] [place], [place] [address] [place] [address] 11/14/2024 Primary Insurance:AETNA MEDICARE PPOPolicy Number: [id number] Date:5804-95-90Teok Name:Meri Pimentel WILBERB: [id number] [place] [address] [facility] 10/07/2024 Primary Insurance:AETNA MEDICARE PPOPolicy Number: [id number] Date:9394-83-72Crxj Name:Meri SOLORIOMeri ROONEY: [id number] [place], [place] [address] [place] [address] 08/19/2024 Primary Insurance:AETNA MEDICARE PPOPolicy Number: [id number] Date:2412-67-89Zbnz Name:Meri ROONEY: [id number] [place] [address] [facility] [place] 08/19/2024 Primary Insurance:AETNA MEDICARE PPOPolicy Number: [id number] Date:0493-77-77Mspb Name:Meri ROONEY: [id number] [place], [place] [address] [place] [address] 06/22/2024 Primary Insurance:AETNA MEDICARE PPOPolicy Number: [id number] Date:7105-33-11Hrwf Name:Meri ROONEY: [id number] [place], [place] [address] [place] [address] 06/21/2024 Primary Insurance:AETNA MEDICARE PPOPolicy Number: [id number] Date:4797-99-39Yfpl Name:Meri ROONEY: [id number] [place] [address] [facility]
[2025-06-11 09:20] VITALS: BP 141/75; PULSE 59; RESP 16; TEMP 37.1; O2SAT 100
--- NOTE | 2025-06-11 09:43 | EX.ED.DYSGE1 ---
HPI History of Present Illness Chief Complaint: Dizziness Informant: patient Onset/Context/Timing Onset: Today Context: Gradual Onset Timing: Continuous Quality: Lightheaded, shaky Location: Generalized Worsened by: Nothing Relieved by: Laying down Narrative Narrative: Patient presents with lightheadedness and dizziness that began today. Patient states it came on gradually. Patient states she feels shaky. Patient states it felt different today. Patient states normally it gets better when she is able to lay down. Patient states that today it was persistent when she laid down. Patient denies any nausea or vomiting. Patient denies any visual changes. Patient denies any tinnitus or hearing changes. Patient does admit to a frontal headache. Patient denies any fevers or chills. [facility] Medical History Contact with and (suspected) exposure to other viral communicable diseases Incontinence Fatigue Kidney disease Wears hearing aid Wears glasses Cancer Anxiety Arthritis Bladder disease Anemia Heartburn Non-smoker History of stress test Chest pain GERD (gastroesophageal reflux disease) Adult hypothyroidism Hypertension Home Medications Medication Instructions Recorded Last Taken Type multivitamin 1 cap PO DAILY 05/28/21 06/10/25 History amlodipine 2.5 mg tablet 2.5 mg PO BID 12/31/21 06/11/25 History levothyroxine 100 mcg tablet 150 mcg PO MOWEFR 01/01/25 06/08/25 History (Synthroid) melatonin 5 mg capsule 5 mg PO QHS 01/01/25 06/10/25 History calcium 600 mg (as 1 tab PO DAILY 06/11/25 06/10/25 History carbonate)-vitamin D3 5 mcg (200 unit) tablet (Calcium 600 + D(3)) calcium carbonate (Antacid 400 mg PO Q2H 06/11/25 06/10/25 History (calcium carbonate)) diazepam 2 mg tablet 2 mg PO TID PRN PRN Vertigo #10 06/11/25 Unknown Rx TABLETS estradiol 0.01% (0.1 mg/gram) 0.5 g vaginal .COMPLEX 06/11/25 06/10/25 History vaginal cream levothyroxine 100 mcg tablet 100 mcg PO SUTUTHSA 06/11/25 06/10/25 History (Euthyrox) Allergy/AdvReac Type Severity Reaction Status Date / Time nitroglycerin AdvReac Other Verified 06/11/25 09:20 pseudoephedrine (From AdvReac FAINT Verified 06/11/25 09:20 Sudafed) Family History Father Heart disease Hypertension Mother Cancer bladder Surgical History History of cholecystectomy (~05/2021) Hx of colonoscopy History of hysterectomy History of esophagogastroduodenoscopy (EGD) Social History Smoking Status: Never smoker ROS ROS ED Constitutional Constitutional ED: Denies chills or fever(s) Eyes Eyes: Denies blurry vision or change in vision ENT ENT ED: Denies rhinorrhea or sore throat Cardiovascular Cardiovascular: Denies chest pain or palpitations Respiratory/Chest Respiratory/Chest: Denies cough or dyspnea Gastrointestinal Gastrointestinal: Denies nausea or vomiting Genitourinary Genitourinary ED: Denies dysuria or hematuria Musculoskeletal Musculoskeletal: Denies back pain or neck pain Integumentary Denies abscess or rash Neurologic Neurologic: Reports headache(s) and weakness Allergic/Immunologic Allergic/Immunologic ED: Denies mouth swelling or urticaria EXAM Physical Exam Const Vital Signs: 06/11/25 09:20 06/11/25 10:02 06/11/25 10:20 Temperature 98.7 F Temperature Source Oral Pulse Rate 59 L 71 Pulse Rate [Lying] 65 Pulse Rate [Sitting (for 1 minute prior to obtaining)] 65 Pulse Rate [Standing (for 1 minute prior to obtaining)] 75 Respiratory Rate 16 17 Blood Pressure 141/75 H 129/75 H Blood Pressure [Lying] 140/67 H Blood Pressure [Sitting (for 1 minute prior to obtaining)] 148/72 H Blood Pressure [Standing (for 1 minute prior to obtaining)] 134/75 H Blood Pressure Mean 97 93 Blood Pressure Mean [Lying] 91 Blood Pressure Mean [Sitting (for 1 minute prior to obtaining)] 97 Blood Pressure Mean [Standing (for 1 minute prior to obtaining)] 94 Pulse Ox 100 99 Oxygen Delivery Method Room Air Room Air 06/11/25 11:00 06/11/25 12:07 Temperature Temperature Source Pulse Rate 57 L 70 Pulse Rate [Lying] Pulse Rate [Sitting (for 1 minute prior to obtaining)] Pulse Rate [Standing (for 1 minute prior to obtaining)] Respiratory Rate 17 18 Blood Pressure 126/89 H Blood Pressure [Lying] Blood Pressure [Sitting (for 1 minute prior to obtaining)] Blood Pressure [Standing (for 1 minute prior to obtaining)] Blood Pressure Mean 101 Blood Pressure Mean [Lying] Blood Pressure Mean [Sitting (for 1 minute prior to obtaining)] Blood Pressure Mean [Standing (for 1 minute prior to obtaining)] Pulse Ox 99 Oxygen Delivery Method Positive well nourished and well developed General Appearance ED: well developed and NAD HEENT Reports moist mucous membranes Eyes EOMs intact bilaterally Eyes Narrative: There is no nystagmus noted with lateral gaze. Neck supple and no JVD Resp normal respiratory effort and clear to auscultation bilaterally Cardio regular rate and regular rhythm GI non-tender and non-distended Palpation: soft Extremity normal to inspection General Extremety ED: Negative for edema or tenderness General Extremity: Negative for edema Neuro oriented x3, CN's II-XII intact bilaterally and no sensory deficits noted Sensorium / Orientation: alert Motor Exam: strength 5/5 throughout Psych mental status grossly normal MDM MDM MDM Narrative Medical decision making narrative: Differential diagnosis includes intracranial bleeding, stroke, dehydration, electrolyte abnormality, vertigo, labyrinthitis, cardiac dysrhythmia, cardiac ischemia, pneumonia, bronchitis, and urinary tract infection. CT scan of the brain will be obtained to assess for intracranial bleeding and stroke. EKG will be obtained to assess for cardiac dysrhythmia and cardiac ischemia. Chest x-ray will be obtained to assess for pneumonia or bronchitis. CBC will be obtained to assess for leukocytosis and anemia. Basic metabolic profile will be obtained to assess for electrolyte abnormality and renal function. High-sensitivity troponin will be obtained to assess for cardiac ischemia. 2-hour repeat high-sensitivity troponin will be obtained to assess for ongoing cardiac ischemia. Urinalysis will be obtained to assess for urinary tract infection and hematuria. Lab Data Attestation: I reviewed the patient's lab results. Lab results narrative: CBC was reviewed. Hemoglobin was mildly elevated at 15.2 and hematocrit is 47.2. Basic metabolic profile was reviewed and was within normal limits. Initial high-sensitivity troponin was reviewed and was normal at 12. Urinalysis was reviewed. There is no evidence of urinary tract infection or hematuria. 2-hour repeat high-sensitivity troponin was reviewed and was normal at 9. Labs: Laboratory Results - last 24 hr 09/29/25 09/29/25 09/29/25 09:58 10:00 11:55 WBC 6.9 RBC 5.21 Hgb 15.2 H Hct 47.2 H MCV 90.6 MCH 29.2 MCHC 32.2 RDW Std Deviation 45.8 H RDW Coeff of [place] 13.7 Plt Count 240 MPV 10.1 Immature Gran % (Auto) 0.300 Neut % (Auto) 66.8 Lymph % (Auto) 21.2 [place] % (Auto) 9.5 Eos % (Auto) 1.2 Baso % (Auto) 1.0 Absolute Neuts (auto) 4.6 Absolute Lymphs (auto) 1.47 Nucleated RBC % 0 Sodium 139 Potassium 3.8 Chloride 101 Carbon Dioxide 25.1 Anion Gap 12 BUN 21 H Creatinine 0.82 Estim Creat Clear Calc 58.10 Est GFR (MDRD) Non-Af 71 BUN/Creatinine Ratio 25.9 H Glucose 103 H Calcium 9.4 Troponin T High Sens 12 Troponin T Hi Sens 2 Hr 9 Urine Color Yellow Urine Clarity Clear Urine pH 7.0 Ur Specific [place] 1.005 Urine Protein 15 H Urine Glucose (UA) Normal Urine Ketones Negative Urine Occult Blood 10 H Urine Nitrite Negative Urine Bilirubin Negative Urine Urobilinogen Normal Ur Leukocyte Esterase 100 H Urine RBC 0 SEEN Urine WBC 0 SEEN Ur Squamous Epith Cells 0-5 SEEN Urine Bacteria 0 SEEN Urine Mucus 0 SEEN Radiography Chest X-Ray - ED: 2 View, Read by ED Physician, Read by Radiologist and No Acute Disease Diagnostic Testing: Clinical Impression(s) from Imaging Studies Brain CT 06/11/25 09:47 IMPRESSION: No acute intracranial pathology. Reading Location: [facility] Chest X-Ray 06/11/25 09:47 IMPRESSION: No acute process is identified in the chest. Reading Location: [facility] CT scan of the brain was obtained. There is no acute intracranial abnormality. This was interpreted by the radiologist and was also independently reviewed by myself. PA and lateral chest x-ray was obtained. There are 2 views. On my independent interpretation, lung arce are clear. There is normal cardiac silhouette. Bony thorax is normal. There is no acute process noted. Radiologist also interpreted the x-ray and agrees. EKG Initial EKG: Attestation: I personally reviewed and interpreted this EKG as follows: Interpretation: Sinus Rhythm (With occasional PACs with a rate of 65) and Non-Specific ST Changes Comments: EKG was obtained. On my independent interpretation, it showed a normal sinus rhythm with occasional PACs with a rate of 65. ID interval, QRS interval, and QTc intervals were all normal. Lucan was normal. There are nonspecific ST-T T wave changes. Prior EKG tracings: available for review Prior: Changed (Compared to EKG dated 12/31/2021, there is T wave inversion in lead III and flattening of the T wave in aVF.) Treatment and Re-Evaluation :: Patient was given a dose of Valium. Orthostatic vital signs were obtained and were within normal limits. The patient was feeling better on reevaluation. Patient was advised of her findings. Patient was advised that this could be peripheral vertigo. Patient was given a prescription for Valium to take as needed. Patient was instructed to follow-up with her primary care physician in 5 to 7 days. Patient understood and was agreeable with plan. All questions were answered. Discharge Plan Triage Chief Complaint: Dizziness ED Provider: Johnathan Villalobos Dx/Rx/DC Orders Clinical Impression: Dizziness, nonspecific, Vertigo, Elevated blood pressure reading Instructions: ED Vertigo, Unspecified Prescriptions: New diazepam [diazepam] 2 mg tablet 2 mg PO TID PRN PRN (Reason: Vertigo) Qty: 10 0RF No Action multivitamin Capsule 1 cap PO DAILY amlodipine 2.5 mg Tablet 2.5 mg PO BID levothyroxine [Synthroid] 100 mcg tablet 150 mcg PO MOWEFR melatonin 5 mg capsule 5 mg PO QHS estradiol 0.01 % (0.1 mg/gram) cream 0.5 g vaginal .COMPLEX Rx Instructions: 0.5 grams vaginally 2xw; 0.5 vaginally twice weekly; levothyroxine [Euthyrox] 100 mcg tablet 100 mcg PO SUTUTHSA calcium carbonate [Antacid (calcium carbonate)] 200 mg calcium (500 mg) tablet,chewable 400 mg PO Q2H calcium carbonate-vitamin D3 [Calcium 600 + D(3)] 600 mg-5 mcg (200 unit) tablet 1 tab PO DAILY Primary Care Provider: Jose F Lara Referrals: Jose F Lara MD [Primary Care Provider, Family Practice] - Keep Suze appointment Print Language: Cambodian Disposition Disposition: Home, Self Care
--- NOTE | 2025-06-11 09:47 | EKG12_ITS ---
Test Reason : Blood Pressure : */* mmHG Vent. Rate : 65 BPM Atrial Rate : 70 BPM P-R Int : 186 ms QRS Dur : 86 ms QT Int : 398 ms P-R-T Axes : 59 -9 8 degrees QTcB Int : 413 ms Sinus rhythm with Premature atrial complexes Inferior infarct , age undetermined Abnormal ECG Confirmed by VICKY ONEILL, KAYLIE ([id number]), editor magazine GONZALEZ DEL CID ([id number]) on 06/12/2025 8:03:08 AM Referred By: Confirmed By: KAYLIE PERRY MD
--- NOTE | 2025-06-11 09:47 | CT_ITS ---
EXAM: NONCONTRAST CT SCAN OF THE HEAD CLINICAL HISTORY: Dizziness COMPARISON: None TECHNIQUE: Serial axial series through the head were obtained without contrast. 2-D coronal and sagittal reformats were then obtained. FINDINGS: Brain: There is no acute large territorial infarct, intracranial hemorrhage, midline shift or mass effect. There are atherosclerotic vascular calcifications involving the bilateral carotid siphons. The sella and pineal gland regions appear unremarkable. Evaluation of the brainstem is limited due to beam hardening artifact. There is no evidence of cerebellar tonsillar herniation. Ventricles: There is no acute hydrocephalus. Basilar cisterns are patent. Paranasal sinuses: Well-aerated Mastoid air cells: Well-aerated. Calvarium: The bony calvarium is intact. Orbits: The bilateral globes are symmetric, without retrobulbar compressive mass lesion or hemorrhage. CT/Brain/Head without Contrast IMPRESSION: No acute intracranial pathology. Reading Location: [facility]
--- NOTE | 2025-06-11 09:47 | RAD_ITS ---
PROCEDURE: CHEST PA AND LATERAL 06/11/2025 REASON FOR EXAM: DIZZINESS TECHNIQUE: Procedure Code: RADCXR Modality: DX Procedure: CHEST PA AND LATERAL COMPARISON: None FINDINGS: Heart size and mediastinal configuration are within normal limits. There is no focal infiltrate or consolidation. There is no pneumothorax or effusion. Aortic calcifications are visible. There is no acute bony abnormality. RAD/Chest PA and Lateral IMPRESSION: No acute process is identified in the chest. Reading Location: [facility]
[2025-06-11 09:54] VITALS: BMI 23.3
[2025-06-11 10:02] VITALS: BP 134/75; BP 140/67; BP 148/72; PULSE 65; PULSE 75
[2025-06-11 10:13] LABS: Mucous, Urine 0 SEEN /hpf (<or=2+); Red Blood Cells-Urine 0 SEEN /hpf (0-5)
[2025-06-11 10:16] LABS: Hematocrit 47.2 % (37-47); Hemoglobin 15.2 g/dL (12.0-15.0); Immature Granulocytes Count 0.020 X10^3/uL (0.0-0.0); Mean Corp Hgb Conc 32.2 g/dL (32-36); Mean Corpuscular Volume 90.6 fL (81-99); Mean Platelet Vol. 10.1 fl (6.2-12.0); NRBC Flagged by Analyzer 0 % (0-5); Platelet Count 240 K/mm3 (150-450); RBC Distribution Width CV 13.7 % (11.6-14.6); RBC Distribution Width SD 45.8 fl (35.1-43.9); Red Blood Count 5.21 M/mm3 (4.2-5.4); White Blood Count 6.9 K/mm3 (4.4-11.0)
[2025-06-11] MEDS: 0.9% Normal Saline (1000mL) 1,000 ML 1000 ML IV (10:17)
[2025-06-11 10:19] LABS: Color, Urine Yellow (Yellow); Glucose, Dipstick Normal (Normal); Ketone-Dipstick Negative (Negative); Leukocyte Esterase-Dipstick 100 /ul (Negative); Nitrite-Dipstick Negative (Negative); Occult Blood-Urine 10 /ul (Negative); Protein-Dipstick 15 mg/dl (Negative); Specific Gravity, Urine 1.005 (1.002-1.030); Urine Bilirubin Dipstick Negative (Negative)
[2025-06-11 10:20] VITALS: BP 129/75; PULSE 71; RESP 17; O2SAT 99
[2025-06-11 10:27] LABS: Squamous Epithelial Cells - UA 0-5 SEEN /hpf (5-10)
[2025-06-11 10:52] LABS: Anion Gap 12 (5-15); BUN 21 mg/dL (4-19); BUN/Creat Ratio 25.9 RATIO (10-20); Calcium,Total 9.4 mg/dL (7.6-11.0); Carbon Dioxide 25.1 mmol/L (21.0-32.0); Chloride 101 mmol/L (98-108); Estimated Creatinine Clearance 58.10 ml/min (50-250); Glucose 103 mg/dL (70-99); Potassium 3.8 mmol/L (3.3-5.1); Troponin T High Sensitivity 12 ng/L (<=14)
[2025-06-11 11:00] VITALS: PULSE 57; RESP 17; O2SAT 99
[2025-06-11 12:07] VITALS: BP 126/89; PULSE 70; RESP 18
[2025-06-11 12:27] LABS: Troponin T High Sens 2 HR 9 ng/L (<=14)
[2025-06-11 13:07] VITALS: BP 151/78; PULSE 64; RESP 18; TEMP 37.1; O2SAT 99
== END 2025-06-11 13:08 | disposition home or self-care (01) ==
PROVIDERS: Emergency Provider Emergency Medicine; PCP Family Medicine; Visit Provider Emergency Medicine
DX: R42 Dizziness and giddiness (principal); I10 Essential (primary) hypertension; Z79.899 Other long term (current) drug therapy
CPT/HCPCS: 70450; 71046; 80048; 81001; 84484; 85025; 93005; 96360; 99285; A4216